=== PATIENT | male | born 1950 ===

== ENCOUNTER 2017-01-24 15:53 | Inpatient (IN) | payer MEDICARE, OTHER ==
--- NOTE | 2017-01-24 16:10 | ED PDOC ---
Arrival/HPI - General Time Seen by Provider: 01/24/17 15:54 - History of Present Illness Narrative History of Present Illness (Text): 01/24/17 16:09 Patient with a past medical history of hypertension, diabetes, CVA, dyslipidemia presents with 3 days duration of productive cough. Denies cp/sob/ alvarado. No f/c, no other complaints. Past Medical History - Provider Review Nursing Documentation Reviewed: Yes - Infectious Disease Hx of Infectious Diseases: None - Tetanus Immunization Tetanus Immunization: Unknown - Cardiac Hx Hypertension: Yes - Pulmonary Hx Chronic Obstructive Pulmonary Disease (COPD): Yes - Neurological HX Cerebrovascular Accident: Yes - Endocrine/Metabolic Hx Diabetes Mellitus Type 2: Yes - Hematological/Oncological Hx Blood Disorders: No - Musculoskeletal/Rheumatological Hx Falls: Yes - Gastrointestinal Hx Gastroesophageal Reflux: Yes - Genitourinary/Gynecological Hx Genitourinary Disorders: Yes (retention voids small amts) - Psychiatric Hx Depression: Yes Hx Emotional Abuse: No Hx Physical Abuse: No Hx Substance Use: No - Surgical History Hx Cardiac Catheterization: Yes Hx Orthopedic Surgery: Yes (left hip) - Anesthesia Hx Anesthesia: Yes Hx Anesthesia Reactions: No Hx Malignant Hyperthermia: No - Suicidal Assessment Feels Threatened In Home Enviroment: No Family/Social History Family/Social History: Unknown Family HX Smoking Status: Current Some Days Smoker Hx Alcohol Use: No Hx Substance Use: No Hx Substance Use Treatment: Yes Allergies/Home Meds Allergies/Adverse Reactions: Allergies No Known Allergies Allergy (Verified 08/18/16 15:42) Home Medications: Home Meds Medication Instructions Recorded Confirmed Albuterol HFA [Ventolin HFA 90 2 puff IH QID 11/19/15 08/25/16 mcg/actuation (8 g)] Clonazepam 0.5 mg PO HS 11/19/15 08/25/16 Ibuprofen [Motrin Tab] 600 mg PO Q8H PRN 11/19/15 08/25/16 Insulin Glargine, Recombina 15 unit SC HS 11/19/15 08/25/16 [Lantus] Quetiapine Fumarate [Seroquel Xr] 300 mg PO HS 11/19/15 08/25/16 Ranitidine HCl 150 mg PO DAILY 11/19/15 08/25/16 SITagliptin [Januvia] 100 mg PO DAILY 11/19/15 08/25/16 Atorvastatin [Lipitor] 20 mg PO DIN 02/03/16 08/25/16 Aspirin [Adult Low Dose Aspirin EC] 81 mg PO DAILY 02/05/16 08/25/16 Physical Exam - Physical Exam Narrative Physical Exam (Text): 01/24/17 16:19 - Review of Systems Constitutional: Normal. absent: Fatigue, Weight Change, Fevers Eyes: Normal ENT: denies sore throat, denies tristhmus Respiratory: cough, sputum absent: SOB Cardiovascular: absent: Chest Pain, Palpitations, Syncope Gastrointestinal: Normal. absent: Abdominal Pain, Diarrhea, Nausea, Vomiting Genitourinary: Normal. absent: Dysuria, Frequency, Hematuria, vaginal bleeding Musculoskeletal: Normal. absent: Arthralgias, Back Pain, Neck Pain Skin: no rashes, no erythema Neurological: absent: Focal Weakness Endocrine: Normal Hemo/Lymphatic: Normal Psychiatric: No suicidal or homicidal ideations Physical exam Patient appears age appropriate in no distress, speaking full sentences without difficulty - Systems Exam Head: Present: Atraumatic, Normocephalic Pupils: Present: PERRL Extroacular Muscles: Present: EOMI Conjunctiva: Present: Normal Mouth: Present: Moist Mucous Membranes Neck: Present: Normal Range of Motion. No: MIDLINE TENDERNESS, Paraspinal Tenderness Respiratory/Chest: Present: exp wheezing, R>L, Good Air Exchange. No: Respiratory Distress, Accessory Muscle Use, Tachypneic Cardiovascular: Present: Regular Rate and Rhythm, Normal S1, S2, Peripheal Pulses Present. No: Murmurs Abdomen: Present: Normal Bowel Sounds. No: Tenderness, Distention, Peritoneal Signs, Rebound, Guarding Back: Present: Normal Inspection. No: Midline Tenderness, Paraspinal Tenderness Upper Extremity: Present: Normal Inspection. No: Cyanosis, Edema Lower Extremity: Present: Normal Inspection. No: Edema Neurological: Present: GCS=15, Speech Normal, cranial nerves II through XII fully intact with no cerebellar abnormality, neurosensory fully intact. No focal neurological deficits. Skin: Present: Warm, Dry, Normal Color. No: Rashes Lymphatic: Present: OX3, NI, NC Psychiatric: Present: Alert, Oriented x 3, Normal Insight, Normal Concentration Vital Signs Temp Pulse Resp BP Pulse Ox 01/24/17 16:31 98.5 F 94 H 18 118/65 93 L Medical Decision Making ED Course and Treatment: 01/24/17 16:20 66yo male with 3 days of productive cough. Pt has exp wheezing on exam, in no resp distress Patient's previous records reviewed, he was admitted on with diagnosis of pneumonia differential includes but not limited to: PNA, bronchitis, COPD abx, nebs, steroids, cxr, labs ordered 01/24/17 17:40 on reeval, pt states he feels better, but remains symptomatic dw Dr. Pizano, accepted obs to his service pt aware of and agrees with plan Veneer Clipper : Mauro Chase MD Approver2 : Report Date : 01/24/2017 16:53:01 My Comment : HISTORY: Cough. Portable study 16:20. COMPARISON: 08/25/2016. FINDINGS: LUNGS: No active pulmonary disease. PLEURA: No significant pleural effusion identified, no pneumothorax apparent. CARDIOVASCULAR: No radiographic findings to suggest acute or significant cardiovascular disease. OSSEOUS STRUCTURES: No significant abnormalities. VISUALIZED UPPER ABDOMEN: Normal. OTHER FINDINGS: None. IMPRESSION: No active disease. No significant interval change compared to the prior examination(s). - Lab Interpretations Lab Results: 01/24/17 16:24 01/24/17 16:24 Lab Results 01/24/17 16:24: Sodium 139, Potassium 4.2, Chloride 103, Carbon Dioxide 23, Anion Gap 17, BUN 14, Creatinine 1.0, Est GFR ( Amer) > 60, Est GFR (Non- Af Amer) > 60, Random Glucose 269 H, Calcium 9.4, Total Bilirubin 0.5, AST 31, ALT 50, Alkaline Phosphatase 106, NT-Pro-B Natriuret Pep 57.2, Total Protein 7.1 , Albumin 4.2, Globulin 2.9, Albumin/Globulin Ratio 1.4 01/24/17 16:24: PT 11.8, INR 1.09 H, APTT 29.0 01/24/17 16:24: WBC 8.5, RBC 4.81, Hgb 15.1, Hct 43.4, MCV 90.2, MCH 31.4, MCHC 34.8, RDW 13.1, Plt Count 297, MPV 9.5, Gran % 51.9, Lymph % (Auto) 28.1, [place] % (Auto) 11.8 H, Eos % (Auto) 7.6 H, Baso % (Auto) 0.6, Gran # 4.43, Lymph # 2.4 , [place] # 1.0 H, Eos # 0.7, Baso # 0.05 - RAD Interpretation Radiology Orders: 01/24/17 16:16 CHEST PORTABLE [RAD] Stat - Medication Orders Current Medication Orders: Azithromycin (Zithromax 500mg In Ns) 500 mg in 250 mls @ 167 mls/hr IVPB STAT STA PRN Reason: Protocol Stop: 01/24/17 17:45 Last Admin: 01/24/17 17:23 Dose: 167 mls/hr Discontinued Medications Albuterol/Ipratropium (Duoneb 3 Mg/0.5 Mg (3 Ml) Ud) 3 ml IH Q15M MARIPOSA Stop: 01/24/17 17:01 Last Admin: 01/24/17 17:24 Dose: 3 ml Albuterol/Ipratropium (Duoneb 3 Mg/0.5 Mg (3 Ml) Ud) 3 ml IH STAT STA Stop: 01/24/17 16:17 Last Admin: 01/24/17 16:30 Dose: Ceftriaxone Sodium (Rocephin 1 Gram Ivpb) 1 gm in 100 mls @ 200 mls/hr IV STAT STA PRN Reason: Protocol Stop: 01/24/17 16:45 Last Admin: 01/24/17 16:31 Dose: 200 mls/hr Methylprednisolone (Solu-Medrol) 125 mg IVP STAT STA Stop: 01/24/17 16:17 Last Admin: 01/24/17 16:31 Dose: 125 mg Disposition/Present on Arrival - Present on Arrival Any Indicators Present on Arrival: No History of DVT/PE: No History of Uncontrolled Diabetes: No Urinary Catheter: No History Surgical Site Infection Following: None - Disposition Have Diagnosis and Disposition been Completed?: Yes Diagnosis: COPD (chronic obstructive pulmonary disease) Disposition: HOSPITALIZED Disposition Time: 17:41 Patient Plan: Observation Condition: STABLE Referrals: Aleks Pizano MD [Primary Care Provider] - Follow up with primary
[2017-01-24 16:13] VITALS: BMI 26.0
[2017-01-24] MEDS ORDERED: cefTRIAXone 1 gm 1 GM/100 ML BAG IV STA (16:16)
[2017-01-24] MEDS ORDERED: Azithromycin 500MG/NS 250ml 500 MG/250 ML BAG IVPB STA (16:16)
[2017-01-24] MEDS ORDERED: Albuterol-Ipratrop 3 mg / 0.5 (3 ml) UD IH STA (16:16)
[2017-01-24] MEDS: Albuterol-Ipratrop 3 mg / 0.5 (3 ml) UD IH SCH ×3 (16:30→17:24)
[2017-01-24 16:35] LABS: BASO # 0.05 K/mm3 (0.0-2.0); BASO % 0.6 % (0.0-3.0); EOS # 0.7 (0.0-0.7); EOS % 7.6 % (1.5-5.0); GRAN # 4.43 (1.4-6.5); GRAN % 51.9 % (50.0-68.0); HEMOGLOBIN 15.1 g/dL (14.0-18.0); LYMPH # 2.4 (1.2-3.4); LYMPH % 28.1 % (22.0-35.0); MEAN CELL VOLUME 90.2 fl (80.0-105.0); MEAN CORPUSCULAR HEMOGLOBIN 31.4 pg (25.0-35.0); MEAN CORPUSCULAR HGB CONC 34.8 g/dl (31.0-37.0); MEAN PLATELET VOLUME 9.5 fl (7.0-11.0); MONO % 11.8 % (1.0-6.0); PLATELET COUNT 297 10^3/uL (120.0-450.0); RBC 4.81 10^6/uL (3.5-6.1); RED CELL DISTRIBUTION WIDTH 13.1 % (11.5-14.5); WHITE BLOOD COUNT 8.5 10^3/ul (4.5-11.0)
[2017-01-24 16:47] LABS: INR 1.09 (0.93-1.08); PROTHROMBIN TIME 11.8 Seconds (9.9-11.8)
[2017-01-24 16:50] LABS: ALB/GLOB RATIO 1.4 (1.1-1.8); ALBUMIN 4.2 g/dL (3.0-4.8); ALT/SGPT 50 U/L (7-56); AST/SGOT 31 U/L (15-59); BLOOD UREA NITROGEN 14 mg/dL (7-21); CALCIUM 9.4 mg/dL (8.4-10.5); GFR AFRICAN-AMERICAN > 60; GFR NON-AFRICAN AMERICAN > 60
--- NOTE | 2017-01-24 16:55 | RAD ---
HISTORY: Cough. Portable study 16:20. COMPARISON: 08/25/2016. FINDINGS: LUNGS: No active pulmonary disease. PLEURA: No significant pleural effusion identified, no pneumothorax apparent. CARDIOVASCULAR: No radiographic findings to suggest acute or significant cardiovascular disease. OSSEOUS STRUCTURES: No significant abnormalities. VISUALIZED UPPER ABDOMEN: Normal. OTHER FINDINGS: None. IMPRESSION: No active disease. No significant interval change compared to the prior examination(s).
[2017-01-24 16:58] LABS: B-TYPE NATRIURETIC PEPTIDE 57.2 pg/mL (0-450)
[2017-01-24] MEDS ORDERED: Albuterol-Ipratrop 3 mg / 0.5 (3 ml) UD IH PRN (17:41)
[2017-01-24] MEDS ORDERED: QUEtiapine 300 mg XR Tab PO ONE (23:15)
[2017-01-24] MEDS ORDERED: guaiFENesin DM 200 mg-20 mg/10 ml UD PO STA (23:59)
[2017-01-25] MEDS: MethylPREDNISolone 40 mg Vial IVP SCH ×3 (06:48→13:22)
[2017-01-25] MEDS: Promethazine/Cod 6.25mg-10mg/5ml Syr UD PO PRN ×2 (13:22→23:39)
[2017-01-25] MEDS: Insulin Reg-LOW-Coverage SC SCH ×2 (17:12→21:52)
[2017-01-25] MEDS: Oxycodone/Acetaminophen 5/325 mg Tab PO PRN (20:31)
[2017-01-25] MEDS: QUEtiapine 300 mg XR Tab PO SCH (22:36)
[2017-01-25] MEDS: MethylPREDNISolone 40 mg Vial IV SCH (22:36)
--- NOTE | 2017-01-26 01:09 | CON ---
PULMONARY CONSULTATION DATE: 01/25/2017 REFERRING PHYSICIAN: Dr. Pizano. REASON FOR CONSULTATION: Cough, shortness of breath, exacerbation of chronic obstructive lung disease. HISTORY OF PRESENT ILLNESS: This is a 66-year-old gentleman with known history of stroke, chronic obstructive pulmonary disease, active smoker, history of diabetes, anxiety disorder, admitted for cough and shortness of breath, started on IV inhaled bronchodilator, still has a cough and shortness of breath. PAST MEDICAL HISTORY: Chronic obstructive lung disease, active smoker, hypertension, history of stroke, diabetes, degenerative joint disease, anxiety disorder. ALLERGIES: NONE KNOWN. SOCIAL HISTORY: Active smoker or any alcohol use. FAMILY HISTORY: Significant for cardiopulmonary disease reported. MEDICATIONS: He is on doxycycline 100 mg twice a day started last night, DuoNeb q.4h. p.r.n., Ecotrin 81 mg daily, Januvia 100 mg daily, Lipitor 20 mg daily, Motrin 600 mg q.8h. p.r.n., Pepcid 20 mg daily, Percocet 5/325 mg one tab q.8h. p.r.n., Phenergan with codeine 5 mL q.4h., Seroquel 300 mg bedtime, And Solu-Medrol 20 mg q.8h. REVIEW OF SYSTEMS: No headache, no rhinitis, no cough, or shortness of breath. No chest pain, no nausea, no vomiting, no diarrhea. No leg pain or leg swelling. PHYSICAL EXAMINATION: GENERAL: Lying in the bed with cough and shortness of breath. VITAL SIGNS: Temperature is 98, heart rate is 102, respiratory rate is 18, blood pressure 126/70, pulse ox is 97% on 3 liters nasal cannula. HEENT: Moist mucous membrane. Crowded airway. NECK: Supple. No JVD. LUNGS: Bilateral wheezing. HEART: S1 and S2. ABDOMEN: Soft, nontender. No organomegaly. EXTREMITIES: There is no edema. NEUROLOGIC: Awake and alert. Follow simple command. LABORATORY DATA: Shows hemoglobin 15.1, hematocrit 43.4, WBC 8.5, platelet is 297. INR 1.09. VBG done shows pH 7.40, pCO2 36, O2 84. Sodium 139, potassium 4.2, chloride 103, bicarbonate 23, BUN is 14, creatinine 1.0, glucose 269, calcium 9.4, AST 31, ALT 50, alkaline phosphatase is 106. ProBNP 57, albumin is 4.2. Chest x-ray done in the ER shows no active disease. IMPRESSION AND PLAN: Chronic obstructive lung disease, active smoker, bipolar disorder, diabetes, sleep apnea syndrome, history of remote stroke. Case discussed with the nurse practitioner on the floor. Continue Solu-Medrol. Continue antibiotics, inhaled bronchodilator, gastric prophylaxis, DVT prophylaxis, cough suppressor. The patient is to stop smoking. We will follow with you. Anushka Trammell MD
[2017-01-26] MEDS: MethylPREDNISolone 40 mg Vial IV SCH ×2 (05:35→14:31)
[2017-01-26] MEDS: Insulin Reg-LOW-Coverage SC SCH ×4 (08:28→21:39)
--- NOTE | 2017-01-26 09:14 | CT ---
PROCEDURE: CT Chest without contrast HISTORY: persistant chronic cough,chronic years COMPARISON: 08/16/2016 TECHNIQUE: Contiguous axial images were obtained through the chest without intravenous contrast enhancement. Sagittal and coronal reconstructions were performed. Radiation dose (DLP): 267.90 mGy-cm. This CT exam was performed using one or more of the following dose reduction techniques: Automated exposure control, adjustment of the mA and/or kV according to patient size, and/or use of iterative reconstruction technique. FINDINGS: LUNGS: Previous areas of consolidation in the right lower lobe, left lower lobe and lingula have resolved. No infiltrate identified. Minimal dependent atelectasis in both lower lobes. No pulmonary mass. Centrilobular pulmonary emphysema is noted. MEDIASTINUM: Unremarkable thoracic aorta. No aneurysm. Normal sized heart. Main pulmonary artery unremarkable. No vascular congestion. No lymphadenopathy. PLEURA: No pleural fluid. No pneumothorax. BONES: No fracture. No destructive lesion. UPPER ABDOMEN: Grossly unremarkable. OTHER FINDINGS: None. IMPRESSION: No pulmonary infiltrate. Centrilobular pulmonary emphysema. Otherwise unremarkable.
[2017-01-26] MEDS: Oxycodone/Acetaminophen 5/325 mg Tab PO PRN (09:45)
--- NOTE | 2017-01-26 10:19 | CP.PCM.HP ---
History of Present Illness - History of Present Illness History of Present Illness: cough, worse than befor quit smoking few month ago , wheezing , dyspnic, no fever no chills use inhalers Present on Admission - Present on Admission Any Indicators Present on Admission: No History of DVT/PE: No History of Uncontrolled Diabetes: No Urinary Catheter: No Decubitus Ulcer Present: No Review of Systems - Review of Systems Systems not reviewed;Unavailable: Language Barrier All systems: reviewed and no additional remarkable complaints except - Constitutional Additional comments: none - EENT Eyes: As Per HPI Ears: As Per HPI - Respiratory Respiratory: Wheezing, Chest Congestion - Gastrointestinal Gastrointestinal: Change in Stool Character Additional comments: h/o hernia - Musculoskeletal Musculoskeletal: Abnormal Gait, Arthralgias, Back Pain, Muscle Weakness - Hematologic/Lymphatic Hematologic: As Per HPI Past Patient History - Infectious Disease Hx of Infectious Diseases: None - Tetanus Immunizations Tetanus Immunization: Unknown - Past Social History Smoking Status: Former Smoker - CARDIAC Hx Hypertension: Yes - PULMONARY Hx Chronic Obstructive Pulmonary Disease (COPD): Yes - NEUROLOGICAL HX Cerebrovascular Accident: Yes - ENDOCRINE/METABOLIC Hx Diabetes Mellitus Type 2: Yes - HEMATOLOGICAL/ONCOLOGICAL Hx Blood Disorders: No - MUSCULOSKELETAL/RHEUMATOLOGICAL Hx Falls: Yes - GASTROINTESTINAL Hx Gastroesophageal Reflux: Yes - GENITOURINARY/GYNECOLOGICAL Hx Genitourinary Disorders: Yes (retention voids small amts) - PSYCHIATRIC Hx Depression: Yes Hx Emotional Abuse: No Hx Physical Abuse: No Hx Substance Use: No - SURGICAL HISTORY Hx Cardiac Catheterization: Yes Hx Orthopedic Surgery: Yes (left hip) - ANESTHESIA Hx Anesthesia: Yes Hx Anesthesia Reactions: No Hx Malignant Hyperthermia: No Meds Allergies/Adverse Reactions: Allergies Allergy/AdvReac Type Severity Reaction Status Date / Time No Known Allergies Allergy Verified 08/18/16 15:42 Physical Exam - Constitutional Appears: Well - Head Exam Head Exam: ATRAUMATIC, NORMAL INSPECTION, NORMOCEPHALIC - Eye Exam Eye Exam: EOMI, Normal appearance, PERRL - ENT Exam ENT Exam: Mucous Membranes Moist, Normal Exam - Respiratory Exam Respiratory Exam: Rhonchi, Wheezes - Cardiovascular Exam Cardiovascular Exam: REGULAR RHYTHM - Extremities Exam Extremities exam: Positive for: normal inspection - Back Exam Back exam: NORMAL INSPECTION - Neurological Exam Neurological exam: Abnormal Gait Results - Vital Signs Recent Vital Signs: Last Vital Signs Temp 96.4 F L 01/25/17 16:00 Pulse 72 01/25/17 16:00 Resp 19 01/25/17 16:00 BP 109/68 01/25/17 16:00 Pulse Ox 96 01/25/17 16:00 - Labs Result Diagrams: 01/24/17 16:24 01/24/17 16:24 Labs: Laboratory Results - last 24 hr 01/25/17 01/26/17 21:45 07:32 POC Glucose (mg/dL) 230 H 273 H Assessment & Plan (1) COPD (chronic obstructive pulmonary disease) Status: Chronic (2) Chest pain Status: Acute (3) Leukocytosis Status: Acute (4) Anxiety Status: Chronic (5) Diabetes Status: Chronic - Assessment and Plan (Free Text) Plan: admitt. pulmonary consult, iv steroids, neublizer, insulin cover . resume meds , iv doxycycline, neublizer, cough meds with codine , .will f/up
[2017-01-26] MEDS: QUEtiapine 300 mg XR Tab PO SCH (21:22)
[2017-01-26] MEDS: MethylPREDNISolone 40 mg Vial IVP SCH (21:23)
[2017-01-26] MEDS: Promethazine/Cod 6.25mg-10mg/5ml Syr UD PO PRN (21:31)
--- NOTE | 2017-01-27 03:13 | PN ---
PULMONARY PROGRESS NOTE DATE: 01/26/2017 REFERRING PHYSICIAN: Dr. Pizano. SUBJECTIVE: The patient is ambulating, feels better. Decreased cough. Decreased short of breath. No nausea, no vomiting, or no diarrhea. No leg pain or leg swelling. OBJECTIVE: GENERAL: In no acute distress. VITAL SIGNS: Temp is 98, heart rate is 70, respiratory rate is 16, blood pressure 111/62 and pulse ox 97% on 2 L nasal cannula. HEENT: Moist mucous membranes. Carotid airway. NECK: Supple. No JVD. LUNGS: Few scattered rhonchi. HEART: S1 and S2. ABDOMEN: Soft and nontender. No organomegaly. EXTREMITIES: There is no edema. NEUROLOGIC: Awake, alert and follows simple commands. MEDICATIONS: He is on doxycycline 100 mg twice a day, DuoNeb q. 6 hours, Ecotrin 81 mg daily, insulin coverage, Januvia 100 mg daily, Clarinex 0.5 mg at bedtime, Lipitor 20 mg daily, Motrin 600 mg q. 8 hours p.r.n., Pepcid 20 mg daily, Percocet 5/325 mg one tab q. 8 hours p.r.n., Phenergan with codeine 5 mL q. 4 hours p.r.n., Seroquel XL 300 mg at bedtime and Solu-Medrol 30 mg q. 8 hours. LABORATORY DATA: Reviewed. Blood sugar this morning is 233. Microbiology; blood culture has been negative. Has a CAT scan of the chest done today which shows no pulmonary infiltrate, central lobular emphysema. Otherwise, unremarkable. IMPRESSION AND PLAN: The patient has chronic obstructive lung disease, active smoker, bipolar disorder, diabetes, sleep apnea syndrome and history of stroke in the remote past. Spoke to nursing staff. Also spoke to nurse practitioner. Tapered on steroids. Continue antibiotics. Urging to stop smoking. Outpatient attended sleep study. Gastric prophylaxis and deep venous thrombosis prophylaxis. Thank you and we will follow with you. Anushka Trammell MD
[2017-01-27] MEDS: MethylPREDNISolone 40 mg Vial IVP SCH (05:32)
[2017-01-27 06:59] LABS: HEMOGLOBIN 15.3 g/dL (14.0-18.0); MEAN CELL VOLUME 90.4 fl (80.0-105.0); MEAN CORPUSCULAR HEMOGLOBIN 31.2 pg (25.0-35.0); MEAN CORPUSCULAR HGB CONC 34.5 g/dl (31.0-37.0); MEAN PLATELET VOLUME 10.1 fl (7.0-11.0); RBC 4.9 10^6/uL (3.5-6.1)
[2017-01-27 07:06] LABS: ALB/GLOB RATIO 1.5 (1.1-1.8); ALBUMIN 4.1 g/dL (3.0-4.8); ALT/SGPT 39 U/L (7-56); AST/SGOT 29 U/L (15-59); BLOOD UREA NITROGEN 30 mg/dL (7-21); CALCIUM 9.6 mg/dL (8.4-10.5); GFR AFRICAN-AMERICAN > 60; GFR NON-AFRICAN AMERICAN > 60
[2017-01-27] MEDS: Insulin Reg-LOW-Coverage SC SCH ×2 (07:58→11:52)
[2017-01-27 08:11] VITALS: BP 133/73; PULSE 85; RESP 20; TEMP 97.4; O2SAT 98
[2017-01-27] MEDS: Oxycodone/Acetaminophen 5/325 mg Tab PO PRN (11:04)
[2017-01-27] MEDS ORDERED: Insulin Detemir 100 units/ml Vial (Levemir) SC ONE (11:36)
--- NOTE | 2017-01-28 19:45 | CP.PCM.PN ---
Subjective - Date & Time of Evaluation Date of Evaluation: 01/26/17 Time of Evaluation: 18:00 - Subjective Subjective: wheezing is less cough is better no chest pain no abdominal pain Objective - Vital Signs/Intake and Output Vital Signs (last 24 hours): Temp Pulse Resp BP Pulse Ox 97.4 F L 85 20 133/73 98 01/27/17 08:10 01/27/17 08:10 01/27/17 08:10 01/27/17 08:10 01/27/17 08:10 - Labs Labs: 01/27/17 06:20 01/27/17 06:20 PT 11.8 Seconds (9.9-11.8) 01/24/17 16:24 INR 1.09 (0.93-1.08) H 01/24/17 16:24 APTT 29.0 Seconds (23.7-30.8) 01/24/17 16:24 - Constitutional Appears: Well - Head Exam Head Exam: ATRAUMATIC, NORMAL INSPECTION, NORMOCEPHALIC - Eye Exam Eye Exam: EOMI, Normal appearance, PERRL Pupil Exam: NORMAL ACCOMODATION, PERRL - ENT Exam ENT Exam: Mucous Membranes Moist, Normal Exam - Neck Exam Neck Exam: Full ROM, Normal Inspection. absent: Lymphadenopathy - Respiratory Exam Respiratory Exam: Clear to Ausculation Bilateral, NORMAL BREATHING PATTERN - Cardiovascular Exam Cardiovascular Exam: REGULAR RHYTHM, +S1, +S2. absent: Murmur - GI/Abdominal Exam GI & Abdominal Exam: Soft, Normal Bowel Sounds. absent: Tenderness - Rectal Exam Rectal Exam: NORMAL INSPECTION - Exam Exam: Circumcision, NORMAL INSPECTION External exam: NORMAL EXTERNAL EXAM Speculum exam: NORMAL SPECULUM EXAM Bimanual exam: NORMAL BIMANUAL EXAM - Extremities Exam Extremities Exam: Full ROM, Normal Capillary Refill, Normal Inspection. absent : Joint Swelling, Pedal Edema - Back Exam Back Exam: NORMAL INSPECTION - Neurological Exam Neurological Exam: Alert, Awake, CN II-XII Intact, Normal Gait, Oriented x3 - Psychiatric Exam Psychiatric exam: Normal Affect, Normal Mood - Skin Skin Exam: Dry, Intact, Normal Color, Warm Assessment and Plan (1) COPD (chronic obstructive pulmonary disease) Status: Chronic (2) Chest pain Status: Acute (3) Leukocytosis Status: Acute (4) Anxiety Status: Chronic (5) Diabetes Status: Chronic - Assessment and Plan (Free Text) Plan: conpulmonary consults ,willd/c in amtinue current meds , continue taper steroid . f/up with
--- NOTE | 2017-01-28 19:50 | CP.PCM.DIS ---
Provider - Provider Date of Admission: 01/25/17 16:22 Attending physician: Aleks Pizano MD Primary care physician: Aleks Pizano MD Consults: pulmonary dr trammell Time Spent in preparation of Discharge (in minutes): 15 Diagnosis - Discharge Diagnosis (1) COPD (chronic obstructive pulmonary disease) Status: Chronic (2) Chest pain Status: Acute (3) Leukocytosis Status: Acute (4) Anxiety Status: Chronic (5) Diabetes Status: Chronic Hospital Course - Lab Results Lab Results: Micro Results 01/26/17 05:35 Sputum Gram Stain - Final 01/26/17 05:35 Sputum Sputum Culture - Final NORMAL ORAL MARLIN Most Recent Lab Values WBC 23.0 10^3/ul (4.5-11.0) H D 01/27/17 06:20 RBC 4.90 10^6/uL (3.5-6.1) 01/27/17 06:20 Hgb 15.3 g/dL (14.0-18.0) 01/27/17 06:20 Hct 44.3 % (42.0-52.0) 01/27/17 06:20 MCV 90.4 fl (80.0-105.0) 01/27/17 06:20 MCH 31.2 pg (25.0-35.0) 01/27/17 06:20 MCHC 34.5 g/dl (31.0-37.0) 01/27/17 06:20 RDW 13.0 % (11.5-14.5) 01/27/17 06:20 Plt Count 324 10^3/uL (120.0-450.0) 01/27/17 06:20 MPV 10.1 fl (7.0-11.0) 01/27/17 06:20 Gran % 51.9 % (50.0-68.0) 01/24/17 16:24 Lymph % (Auto) 28.1 % (22.0-35.0) 01/24/17 16:24 [place] % (Auto) 11.8 % (1.0-6.0) H 01/24/17 16:24 Eos % (Auto) 7.6 % (1.5-5.0) H 01/24/17 16:24 Baso % (Auto) 0.6 % (0.0-3.0) 01/24/17 16:24 Gran # 4.43 (1.4-6.5) 01/24/17 16:24 Lymph # 2.4 (1.2-3.4) 01/24/17 16:24 [place] # 1.0 (0.1-0.6) H 01/24/17 16:24 Eos # 0.7 (0.0-0.7) 01/24/17 16:24 Baso # 0.05 K/mm3 (0.0-2.0) 01/24/17 16:24 PT 11.8 Seconds (9.9-11.8) 01/24/17 16:24 INR 1.09 (0.93-1.08) H 01/24/17 16:24 APTT 29.0 Seconds (23.7-30.8) 01/24/17 16:24 Sodium 138 mmol/L (132-148) 01/27/17 06:20 Potassium 4.5 mmol/L (3.6-5.0) 01/27/17 06:20 Chloride 104 mmol/L (95-110) 01/27/17 06:20 Carbon Dioxide 21 mmol/L (21-33) 01/27/17 06:20 Anion Gap 18 (10-20) 01/27/17 06:20 BUN 30 mg/dL (7-21) H 01/27/17 06:20 Creatinine 0.9 mg/dL (0.5-1.4) 01/27/17 06:20 Est GFR ( Amer) > 60 01/27/17 06:20 Est GFR (Non-Af Amer) > 60 01/27/17 06:20 POC Glucose (mg/dL) 428 mg/dL (65-110) H* 01/27/17 11:25 Random Glucose 294 mg/dL (70-110) H 01/27/17 06:20 Calcium 9.6 mg/dL (8.4-10.5) 01/27/17 06:20 Total Bilirubin 0.6 mg/dL (0.2-1.3) 01/27/17 06:20 AST 29 U/L (15-59) 01/27/17 06:20 ALT 39 U/L (7-56) 01/27/17 06:20 Alkaline Phosphatase 105 U/L (38-133) 01/27/17 06:20 NT-Pro-B Natriuret Pep 57.2 pg/mL (0-450) 01/24/17 16:24 Total Protein 6.7 g/dL (5.8-8.3) 01/27/17 06:20 Albumin 4.1 g/dL (3.0-4.8) 01/27/17 06:20 Globulin 2.7 gm/dL 01/27/17 06:20 Albumin/Globulin Ratio 1.5 (1.1-1.8) 01/27/17 06:20 - Hospital Course Hospital Course: stable chest pain with cough got better with cough meds with codine feel better wants to go home, no wheeze Discharge Exam - Head Exam Head Exam: ATRAUMATIC, NORMAL INSPECTION, NORMOCEPHALIC - Eye Exam Eye Exam: EOMI, Normal appearance, PERRL Pupil Exam: NORMAL ACCOMODATION, PERRL - Neurological Exam Neurological exam: Alert, CN II-XII Intact, Normal Gait, Oriented x3, Reflexes Normal - Psychiatric Exam Psychiatric exam: Normal Affect, Normal Mood - Skin Skin Exam: Dry, Intact, Normal Color, Warm Discharge Plan - Discharge Medications Prescriptions: Albuterol HFA [Ventolin HFA 90 mcg/actuation (8 g)] 1 puff IH Q6 #1 inhaler - Follow Up Plan Condition: STABLE Disposition: HOME/ ROUTINE Instructions: How to Stop Smoking (DC), Cigarette Smoking and Your Health (GEN) , Diabetes Mellitus Type 2 in Adults (GEN), COPD (Chronic Obstructive Pulmonary Disease) (DC), Basic Carbohydrate Counting (GEN), Dyspnea (GEN), Acute Cough ( GEN), Safe Use of Cough and Cold Medicines (DC), How Your Lungs Work (DC) Referrals: Aleks Pizano MD [Primary Care Provider] - Anushka Trammell MD [Staff Provider] -
== END 2017-01-27 13:39 | disposition home or self-care (01) | DRG 192 ==
LOC: ED 15:53 → ERH 17:41 → 5RNO 20:03 → OBSVTOIN 01-25 16:22
PROVIDERS: ADMIT Internal Medicine; ATTEND Internal Medicine
DX: J44.1 Chronic obstructive pulmonary disease with (acute) exacerbation (principal); I10 Essential (primary) hypertension; E11.9 Type 2 diabetes mellitus without complications; F31.9 Bipolar disorder, unspecified; F41.9 Anxiety disorder, unspecified; F17.200 Nicotine dependence, unspecified, uncomplicated; M19.90 Unspecified osteoarthritis, unspecified site; G47.30 Sleep apnea, unspecified; D72.829 Elevated white blood cell count, unspecified; Z86.73 Personal history of transient ischemic attack (TIA), and cerebral infarction without residual deficits; Z79.82 Long term (current) use of aspirin; Z79.4 Long term (current) use of insulin

== ENCOUNTER 2018-08-06 11:50 | Outpatient (CLI) | payer MEDICARE | END 2018-08-06 11:51 | disposition home or self-care (01) | LOC: RAD 11:50 ==

== ENCOUNTER 2018-08-07 12:41 | Inpatient (IN) | payer MEDICARE, OTHER ==
[2018-08-07] MEDS ORDERED: Albuterol-Ipratrop 3 mg / 0.5 (3 ml) UD IH STA (13:09)
--- NOTE | 2018-08-07 13:36 | ED PDOC ---
Arrival/HPI - General Chief Complaint: Shortness Of Breath Time Seen by Provider: 08/07/18 12:55 Historian: Patient - History of Present Illness Narrative History of Present Illness (Text): 08/07/18 13:31 67 year old male, with past medical history of HTN, DM, CVA, dyslipidemia and COPD, presents to the ED for evaluation of shortness of breath and productive cough since 1 month. Patient reports worsening symptom for past few days, prompting him to present to the ED for evaluation. Patient informs productive cough with yellowish sputum but denies any other associated somatic complaints. Patient denies any fevers, chills, headache, dizziness, chest pain, abdominal pain, nausea, vomiting, diarrhea, back pain, neck pain, or any other complaints. Patient admits to smoking cigarettes. PMD: Dr. Pizano Time/Duration: > month Symptom Onset: Gradual Symptom Course: Unchanged Activities at Onset: Light Context: Home Past Medical History - Provider Review Nursing Documentation Reviewed: Yes - Infectious Disease Hx of Infectious Diseases: None - Tetanus Immunization Tetanus Immunization: Unknown - Cardiac Hx Cardiac Disorders: Yes Hx Hypertension: Yes - Pulmonary Hx Chronic Obstructive Pulmonary Disease (COPD): Yes - Neurological HX Cerebrovascular Accident: Yes - Endocrine/Metabolic Hx Diabetes Mellitus Type 2: Yes - Hematological/Oncological Hx Blood Disorders: No - Musculoskeletal/Rheumatological Hx Falls: Yes - Gastrointestinal Hx Gastroesophageal Reflux: Yes - Genitourinary/Gynecological Hx Genitourinary Disorders: Yes (retention voids small amts) - Psychiatric Hx Depression: Yes Hx Emotional Abuse: No Hx Physical Abuse: No Hx Substance Use: No - Surgical History Hx Cardiac Catheterization: Yes Hx Orthopedic Surgery: Yes (left hip) - Anesthesia Hx Anesthesia: Yes Hx Anesthesia Reactions: No Hx Malignant Hyperthermia: No - Suicidal Assessment Feels Threatened In Home Enviroment: No Family/Social History - Physician Review Nursing Documentation Reviewed: Yes Family/Social History: Unknown Family HX Smoking Status: Former Smoker Hx Alcohol Use: No Hx Substance Use: No Hx Substance Use Treatment: Yes Allergies/Home Meds Allergies/Adverse Reactions: Allergies No Known Allergies Allergy (Verified 08/18/16 15:42) Home Medications: Home Meds Medication Instructions Recorded Confirmed RX: Ibuprofen [Motrin Tab] 600 mg PO Q8H PRN 11/19/15 01/24/17 RX: Insulin Glargine, Recombina 15 unit SC HS 11/19/15 01/24/17 [Lantus] RX: Ranitidine HCl 150 mg PO DAILY 11/19/15 01/24/17 RX: SITagliptin [Januvia] 100 mg PO DAILY 11/19/15 01/24/17 RX: Atorvastatin [Lipitor] 20 mg PO DIN 02/03/16 01/24/17 RX: Aspirin [Adult Low Dose 81 mg PO DAILY 02/05/16 01/24/17 Aspirin EC] Review of Systems - Physician Review All systems were reviewed & negative as marked: Yes - Review of Systems Constitutional: absent: Fevers Respiratory: SOB, Cough, Sputum Cardiovascular: absent: Chest Pain Gastrointestinal: absent: Abdominal Pain, Diarrhea, Nausea, Vomiting Genitourinary Male: absent: Dysuria, Urinary Output Changes Musculoskeletal: absent: Back Pain, Neck Pain Skin: absent: Rash Neurological: absent: Headache, Dizziness Psychiatric: absent: Anxiety Physical Exam Vital Signs Reviewed: Yes Vital Signs Temp Pulse Resp BP Pulse Ox 08/07/18 12:55 98.8 F 98 H 20 175/55 H 96 Temperature: Afebrile Blood Pressure: Hypertensive Pulse: Regular Respiratory Rate: Normal Appearance: Positive for: Well-Appearing, Non-Toxic, Comfortable Pain Distress: None Mental Status: Positive for: Alert and Oriented X 3 - Systems Exam Head: Present: Atraumatic, Normocephalic Pupils: Present: PERRL Extroacular Muscles: Present: EOMI Conjunctiva: Present: Icteric Mouth: Present: Moist Mucous Membranes Neck: Present: Normal Range of Motion Respiratory/Chest: Present: Good Air Exchange, Wheezes (diffuse wheezing noted to posterior lung field, coarse breath sounds). No: Respiratory Distress, Accessory Muscle Use Cardiovascular: Present: Normal S1, S2, Tachycardic (mild). No: Murmurs Abdomen: No: Tenderness, Distention, Peritoneal Signs Back: Present: Normal Inspection Upper Extremity: Present: Other (Clubbing of fingers). No: Cyanosis, Edema Lower Extremity: Present: Normal Inspection. No: Edema Neurological: Present: GCS=15, CN II-XII Intact, Speech Normal Skin: Present: Warm, Dry, Normal Color. No: Rashes Psychiatric: Present: Alert, Oriented x 3, Normal Insight, Normal Concentration Medical Decision Making ED Course and Treatment: 08/07/18 13:09 Impression: 67 year old male presents to the ED for evaluation of shortness of breath and cough. Differential Diagnosis included but are not limited to: -- COPD exacerbation Plan: -- Labs -- EKG -- Chest X-ray -- Duoneb -- Solumedrol -- Rapid Flu A/B -- Reassess and disposition Prior Visits: Notes and results from previous visits were reviewed. Progress Notes: 08/07/18 13:00 Dr. Pizano(PCP) evaluated patient at bedside and accepts patient's admission under his service. Requests Dr. Trammell(pulmonology) on consult. - Lab Interpretations Lab Results: 08/07/18 14:00 08/07/18 14:00 Lab Results 08/07/18 14:00: Influenza Typ A,B (EIA) Negative for flu a/b 08/07/18 14:00: Sodium 137, Potassium 4.1, Chloride 102, Carbon Dioxide 27, Anion Gap 12, BUN 15, Creatinine 0.8, Est GFR ( Amer) > 60, Est GFR (Non- Af Amer) > 60, Random Glucose 170 H, Calcium 9.6, Total Bilirubin 0.8, AST 31, ALT 39, Alkaline Phosphatase 106, Total Protein 7.2, Albumin 4.4, Globulin 2.8, Albumin/Globulin Ratio 1.5 08/07/18 14:00: WBC 16.1 H, RBC 4.94, Hgb 15.2, Hct 45.2, MCV 91.5, MCH 30.8, MCHC 33.6, RDW 13.3, Plt Count 270, MPV 9.4, Neut % (Auto) 76.5 H, Lymph % (Auto) 11.0 L, [place] % (Auto) 9.7 H, Eos % (Auto) 2.4, Baso % (Auto) 0.4, Lymph # (Auto) 1.8, [place] # (Auto) 1.6 H, Eos # (Auto) 0.4, Baso # (Auto) 0.07, Absolute Neuts (auto) 12.28 H I have reviewed the lab results: Yes - RAD Interpretation Narrative RAD Interpretations (Text): 08/07/18 14:46 Chest X-ray reviewed by radiologist, shows: FINDINGS: LUNGS: No active pulmonary disease. PLEURA: No significant pleural effusion identified, no pneumothorax apparent. CARDIOVASCULAR: No aortic atherosclerotic calcification present. Normal cardiac size. No pulmonary vascular congestion. OSSEOUS STRUCTURES: No significant abnormalities. VISUALIZED UPPER ABDOMEN: Normal. OTHER FINDINGS: None. IMPRESSION: No active disease. Radiology Orders: 08/07/18 13:09 CHEST PORTABLE [RAD] Stat Storekeeper Helper: Radiologist - EKG Interpretation EKG Interpretation (Text): 08/07/18 13:03 EKG reviewed, shows sinus tachycardia @106 bpm, right axis, no ST elevation. Interpreted by ED Physician: Yes Type: 12 lead EKG - Medication Orders Current Medication Orders: Discontinued Medications Albuterol/Ipratropium (Duoneb 3 Mg/0.5 Mg (3 Ml) Ud) 3 ml IH STAT STA Stop: 08/07/18 13:10 Methylprednisolone (Solu-Medrol) 125 mg IVP STAT STA Stop: 08/07/18 13:10 Discontinued Medications Acetylcysteine (Mucomyst 20% Inhal Yari (30ml)) 3 ml IH BIDRESP [facility]IPOSA Last Admin: 08/09/18 08:08 Dose: 3 ml Acetylcysteine (Acetylcysteine 20%) 3 ml IH BIDRESP [facility] Last Admin: 08/11/18 08:21 Dose: 3 ml Albuterol Sulfate (Albuterol 0.083% Inhal Yari (2.5 Mg/3 Ml) Ud) 2.5 mg INH STAT STA Stop: 08/07/18 13:40 Last Admin: 08/07/18 13:50 Dose: 2.5 mg Albuterol/Ipratropium (Duoneb 3 Mg/0.5 Mg (3 Ml) Ud) 3 ml IH STAT STA Stop: 08/07/18 13:10 Last Admin: 08/07/18 13:50 Dose: 3 ml Albuterol/Ipratropium (Duoneb 3 Mg/0.5 Mg (3 Ml) Ud) 3 ml IH [id number] [facility]OSA Last Admin: 08/11/18 08:22 Dose: 3 ml Albuterol/Ipratropium (Duoneb 3 Mg/0.5 Mg (3 Ml) Ud) 3 ml IH Q2H PRN PRN Reason: Shortness of Breath Arformoterol Tartrate (Brovana) 15 mcg IH [id number] [facility]A Last Admin: 08/11/18 08:21 Dose: 15 mcg Atorvastatin Calcium (Lipitor) 20 mg PO STAT STA Stop: 08/07/18 20:30 Last Admin: 08/07/18 20:39 Dose: 20 mg Azithromycin (Zithromax) 500 mg PO STAT STA; Protocol Stop: 08/07/18 14:16 Last Admin: 08/07/18 14:58 Dose: 500 mg Benzonatate (Tessalon Perles) 100 mg PO TID [facility] Last Admin: 08/11/18 10:44 Dose: 100 mg Budesonide (Pulmicort Respules) 0.5 mg IH BIDRESP [facility] Last Admin: 08/11/18 08:22 Dose: 0.5 mg Clonazepam (Klonopin) 0.5 mg PO ONCE ONE; Protocol Stop: 08/07/18 20:02 Last Admin: 08/07/18 20:39 Dose: 0.5 mg Clonazepam (Klonopin) 0.5 mg PO BID PRN; Protocol PRN Reason: Anxiety Last Admin: 08/10/18 23:40 Dose: 0.5 mg Behavioural Document 08/10/18 23:40 RM (Rec: 08/10/18 23:40 [place] [facility] [id number] Maintenance Maintenance Dose Yes Re-Assess: Reassess Psych Meds Document 08/11/18 00:40 RM (Rec: 08/11/18 02:54 RM [id number]) Reassess Psych Med Effective Enoxaparin Sodium (Lovenox) 40 mg SC DAILY [facility]; Protocol Last Admin: 08/11/18 10:42 Dose: 40 mg Subcutaneous Administrations Document 08/11/18 10:42 SINDHU (Rec: 08/11/18 10:42 SINDHU [facility] [id number] Injection Site MAR Injection Site Left Abdomen Charges for Administration # of Subcutaneous Administrations 1 Fluticasone Propionate (Flonase) 1 actuation NS HS [facility] Last Admin: 08/10/18 23:17 Dose: Not Given Non-Admin Reason: Patient Refused Ceftriaxone Sodium (Rocephin 1 Gram Ivpb) 1 gm in 100 mls @ 100 mls/hr IVPB STAT STA; Protocol Stop: 08/07/18 15:14 Last Admin: 08/07/18 14:58 Dose: 100 mls/hr eMAR Start Stop Document 08/07/18 14:58 EQ (Rec: 08/07/18 14:58 EQ [facility] [id number] Intravenous Solution Start Date 08/07/18 Start Time 14:58 Ceftriaxone Sodium (Rocephin 1 Gram Ivpb) 1 gm in 100 mls @ 100 mls/hr IVPB DAILY [facility]; Protocol Last Admin: 08/11/18 10:44 Dose: 100 mls/hr eMAR Start Stop Document 08/11/18 10:44 SINDHU (Rec: 08/11/18 10:44 SINDHU [facility] [id number] Intravenous Solution Start Date 08/11/18 Start Time 10:44 Doxycycline Hyclate 100 mg/ (Sodium Chloride) 100 mls @ 100 mls/hr IVPB Q12 [facility]; Protocol Last Admin: 08/11/18 10:43 Dose: 100 mls/hr eMAR Start Stop Document 08/11/18 10:43 SINDHU (Rec: 08/11/18 10:43 SINDHU [facility] [id number] Intravenous Solution Start Date 08/11/18 Start Time 10:43 Insulin Detemir (Levemir) 20 unit SC HS [facility] Last Admin: 08/10/18 22:32 Dose: 20 units MAR Blood Glucose Document 08/10/18 22:32 RM (Rec: 08/10/18 22:32 RM [facility] [id number] Blood Glucose Finger Stick Blood Glucose (70-120) 252 Subcutaneous Administrations Document 08/10/18 22:32 RM (Rec: 08/10/18 22:32 RM [facility] [id number] Charges for Administration # of Subcutaneous Administrations 1 Insulin Human Regular (Humulin R Low) 0 units SC ACHS [facility]; Protocol Last Admin: 08/09/18 12:00 Dose: 7 units MAR Blood Glucose Document 08/09/18 12:00 SOUSV (Rec: 08/09/18 12:01 SOUSV [facility] [place] Blood Glucose Finger Stick Blood Glucose (70-120) 500 Subcutaneous Administrations Document 08/09/18 12:00 SOUSV (Rec: 08/09/18 12:01 S[facility]SV [facility] Injection Site MAR Injection Site Right Arm Charges for Administration # of Subcutaneous Administrations 1 Insulin Human Regular (Humulin R High) 0 units SC ACHS [facility]; Protocol Last Admin: 08/11/18 12:15 Dose: 12 units MAR Blood Glucose Document 08/11/18 12:15 SINDHU (Rec: 08/11/18 12:16 [facility] [id number] Blood Glucose Finger Stick Blood Glucose (70-120) 12 Subcutaneous Administrations Document 08/11/18 12:15 (Rec: 08/11/18 12:16 [facility] [id number] Injection Site MAR Injection Site Left Deltoid Charges for Administration # of Subcutaneous Administrations 1 Insulin Human Regular (Humulin R) 10 units SC ONCE ONE Stop: 08/09/18 13:23 Last Admin: 08/09/18 13:38 Dose: 10 units MAR Blood Glucose Document 08/09/18 13:38 SOUSV (Rec: 08/09/18 13:38 S[facility]SV [facility] [place] Blood Glucose Finger Stick Blood Glucose (70-120) 443 Subcutaneous Administrations Document 08/09/18 13:38 SOUSV (Rec: 08/09/18 13:38 S[facility]SV [facility] [place] Injection Site MAR Injection Site Right Arm Charges for Administration # of Subcutaneous Administrations 1 Insulin Human Regular (Humulin R) 10 units SC STAT STA Stop: 08/11/18 02:09 Last Admin: 08/11/18 02:17 Dose: 10 units Comments: Subcutaneous Administrations Document 08/11/18 02:17 RM (Rec: 08/11/18 02:17 RM [facility] [id number] Charges for Administration # of Subcutaneous Administrations 1 Methylprednisolone (Solu-Medrol) 125 mg IVP STAT STA Stop: 08/07/18 13:10 Last Admin: 08/07/18 13:49 Dose: 125 mg IVP Administration Document 08/07/18 13:49 EQ (Rec: 08/07/18 13:49 EQ [facility] [place] Charges for Administration # of IVP Administrations 1 Methylprednisolone (Solu-Medrol) 40 mg IVP Q8H [facility] Last Admin: 08/08/18 00:01 Dose: 40 mg IVP Administration Document 08/08/18 00:01 OLIVD (Rec: 08/08/18 00:01 OLIVD [facility] Charges for Administration # of IVP Administrations 1 Methylprednisolone (Solu-Medrol) 40 mg IVP Q8 [facility] Last Admin: 08/08/18 11:03 Dose: 40 mg IVP Administration Document 08/08/18 11:03 MV (Rec: 08/08/18 11:03 MV [email or web address]) Charges for Administration # of IVP Administrations 1 Methylprednisolone (Solu-Medrol) 40 mg IVP Q6 [facility] Last Admin: 08/09/18 12:00 Dose: 40 mg IVP Administration Document 08/09/18 12:00 SOUSV (Rec: 08/09/18 12:00 SOUSV BMCKOSTEND ORFLP) Charges for Administration # of IVP Administrations 1 Methylprednisolone (Solu-Medrol) 40 mg IVP Q8 [facility] Last Admin: 08/10/18 05:34 Dose: 40 mg IVP Administration Document 08/10/18 05:34 RS (Rec: 08/10/18 05:34 RS [id number]) Charges for Administration # of IVP Administrations 1 Methylprednisolone (Solu-Medrol) 40 mg IVP Q12 [facility] Last Admin: 08/11/18 10:42 Dose: 40 mg IVP Administration Document 08/11/18 10:42 (Rec: 08/11/18 10:42 [facility] [id number] Charges for Administration # of IVP Administrations 1 Methylprednisolone (Solu-Medrol) 20 mg IVP Q12 [facility] Last Admin: 08/11/18 11:10 Dose: Not Given Non-Admin Reason: Dose given Montelukast Sodium (Singulair) 10 mg PO HS [facility] Last Admin: 08/10/18 22:34 Dose: 10 mg Oxycodone/Acetaminophen (Percocet 5/325 Mg Tab) 1 tab PO BID PRN PRN Reason: Pain, severe (8-10) Stop: 08/10/18 20:06 Last Admin: 08/10/18 10:18 Dose: 1 tab [facility] Pain Assessment Document 08/10/18 10:18 SOUSV (Rec: 08/10/18 10:19 [id number]) Pain Reassessment Is this a pain reassessment? No Presence of Pain Presence of Pain Yes Pain Scale Used Protocol: PSCALES Pain Scale Used Numeric Location Pain Location Body Site Back Description Description Intermittent Intensity of Pain at present 8 Pain Behavior Irritability Alleviating Factors/Management Medication Techniques Alleviating Factors Medication Re-Assess: [facility] Pain Assessment Document 08/10/18 11:18 SOUSV (Rec: 08/10/18 12:02 [id number]) Pain Reassessment Is this a pain reassessment? Yes Sleep Is patient sleeping during reassessment? Yes Oxycodone/Acetaminophen (Percocet 5/325 Mg Tab) 1 tab PO STAT STA Stop: 08/10/18 23:31 Last Admin: 08/10/18 23:37 Dose: 1 tab MAR Pain Assessment Document 08/10/18 23:37 RM (Rec: 08/10/18 23:37 RM [facility] [id number] Pain Reassessment Is this a pain reassessment? No Sleep Is patient sleeping during reassessment? No Presence of Pain Presence of Pain Yes Re-Assess: [facility] Pain Assessment Document 08/11/18 00:37 RM (Rec: 08/11/18 02:54 RM [id number]) Pain Reassessment Is this a pain reassessment? Yes Sleep Is patient sleeping during reassessment? No Presence of Pain Presence of Pain No Pantoprazole Sodium (Protonix Ec Tab) 40 mg PO HS [facility]OSA Last Admin: 08/10/18 22:32 Dose: 40 mg Phenylephrine HCl (Raad-Synephrine 0.25% Nasal [place]) 0 ml NS BID PRN PRN Reason: Nasal congestion Last Admin: 08/09/18 18:35 Dose: 2 spr Promethazine HCl/Codeine (Phenergan/Codeine Oral Syrup) 5 ml PO QID PRN PRN Reason: Cough and congestion Last Admin: 08/11/18 10:55 Dose: 5 ml Quetiapine Fumarate (Seroquel Xr) 300 mg PO ONCE ONE; Protocol Stop: 08/07/18 20:02 Last Admin: 08/07/18 20:39 Dose: 300 mg Quetiapine Fumarate (Seroquel Xr) 300 mg PO ONCE ONE; Protocol Stop: 08/08/18 21:44 Last Admin: 08/08/18 22:07 Dose: 300 mg Behavioural Document 08/08/18 22:07 ZARAL (Rec: 08/08/18 22:07 ZARAL [id number]) Maintenance Maintenance Dose Yes Re-Assess: Reassess Psych Meds Document 08/08/18 23:07 ZARAL (Rec: 08/08/18 23:51 ZARAL [id number]) Reassess Psych Med Effective Quetiapine Fumarate (Seroquel Xr) 300 mg PO HS PRN; Protocol PRN Reason: Insomnia Last Admin: 08/10/18 23:40 Dose: 300 mg Behavioural Document 08/10/18 23:40 RM (Rec: 08/10/18 23:40 RM [facility] [id number] Maintenance Maintenance Dose Yes Re-Assess: Reassess Psych Meds Document 08/11/18 00:40 RM (Rec: 08/11/18 02:54 RM [id number]) Reassess Psych Med Effective - Scribe Statement The provider has reviewed the documentation as recorded by the Scribe Danisha Mehta. All medical record entries made by the Scribe were at my direction and personally dictated by me. I have reviewed the chart and agree that the record accurately reflects my personal performance of the history, physical exam, medical decision making, and the department course for this patient. I have also personally directed, reviewed, and agree with the discharge instructions and disposition. Disposition/Present on Arrival - Present on Arrival Any Indicators Present on Arrival: No History of DVT/PE: No History of Uncontrolled Diabetes: No Urinary Catheter: No History of Decub. Ulcer: No History Surgical Site Infection Following: None - Disposition Have Diagnosis and Disposition been Completed?: Yes Diagnosis: Bronchitis Disposition: HOSPITALIZED Disposition Time: 13:00 Patient Plan: Admission Condition: FAIR
[2018-08-07] MEDS ORDERED: Albuterol 0.083% Inhal Sol (2.5 mg/3 mL) UD INH STA (13:39)
[2018-08-07 14:11] LABS: BASO # 0.07 K/mm3 (0.0-2.0); BASO % 0.4 % (0.0-3.0); EOS # 0.4 (0.0-0.7); EOS % 2.4 % (1.5-5.0); HEMOGLOBIN 15.2 g/dL (14.0-18.0); LYMPH # 1.8 (1.2-3.4); MEAN CELL VOLUME 91.5 fl (80.0-105.0); MEAN CORPUSCULAR HEMOGLOBIN 30.8 pg (25.0-35.0); MEAN CORPUSCULAR HGB CONC 33.6 g/dl (31.0-37.0); MEAN PLATELET VOLUME 9.4 fl (7.0-11.0); MONO # 1.6 (0.1-0.6); MONO % 9.7 % (1.0-6.0); RBC 4.94 10^6/uL (3.5-6.1); RED CELL DISTRIBUTION WIDTH 13.3 % (11.5-14.5); WHITE BLOOD COUNT 16.1 10^3/uL (4.5-11.0)
[2018-08-07] MEDS ORDERED: cefTRIAXone 1 gm 1 GM/100 ML BAG IVPB STA (14:15)
[2018-08-07 14:25] LABS: ALB/GLOB RATIO 1.5 (1.1-1.8); ALBUMIN 4.4 g/dL (3.0-4.8); ALT/SGPT 39 U/L (7-56); AST/SGOT 31 U/L (17-59); BLOOD UREA NITROGEN 15 mg/dL (7-21); CALCIUM 9.6 mg/dL (8.4-10.5); GFR NON-AFRICAN AMERICAN > 60
--- NOTE | 2018-08-07 14:41 | RAD ---
Date of service: 08/07/2018 HISTORY: sob COMPARISON: 01/24/2017 FINDINGS: LUNGS: No active pulmonary disease. PLEURA: No significant pleural effusion identified, no pneumothorax apparent. CARDIOVASCULAR: No aortic atherosclerotic calcification present. Normal cardiac size. No pulmonary vascular congestion. OSSEOUS STRUCTURES: No significant abnormalities. VISUALIZED UPPER ABDOMEN: Normal. OTHER FINDINGS: None. IMPRESSION: No active disease.
[2018-08-07] MEDS ORDERED: QUEtiapine 300 mg XR Tab PO ONE (20:01)
--- NOTE | 2018-08-07 22:32 | CARD ---
APPROVED REPORT Date of service: 08/07/2018 EKG Measurement Heart [id number] <Conclusion> Sinus tachycardia Rightward axis Borderline ECG
[2018-08-07] MEDS: Budesonide 0.5 mg/2 ml Inhal Susp UD IH SCH (23:35)
[2018-08-07] MEDS ORDERED: MethylPREDNISolone 40 mg Vial IVP SCH (23:45)
[2018-08-08 02:40] VITALS: BMI 27.8
[2018-08-08] MEDS: Acetylcysteine 20% Inhal Sol (30ml) IH SCH ×2 (07:50→20:53)
[2018-08-08] MEDS: Arformoterol 15 mcg/2 ml Inh Sol IH SCH ×2 (07:50→20:52)
[2018-08-08] MEDS: Budesonide 0.5 mg/2 ml Inhal Susp UD IH SCH ×2 (07:50→20:53)
[2018-08-08] MEDS ORDERED: MethylPREDNISolone 40 mg Vial IVP SCH (08:00)
[2018-08-08] MEDS: Enoxaparin 40 mg Syringe SC SCH (10:58)
[2018-08-08] MEDS: cefTRIAXone 1 gm 1 GM/100 ML BAG IVPB SCH (10:59)
[2018-08-08] MEDS: Oxycodone/Acetaminophen 5/325 mg Tab PO PRN (11:03)
[2018-08-08] MEDS: Insulin Reg-LOW-Coverage SC SCH ×3 (12:51→22:07)
--- NOTE | 2018-08-08 15:49 | CP.PCM.APN ---
Subjective - Date & Time of Evaluation Date of Evaluation: 08/08/18 Time of Evaluation: 01:00 - Subjective Subjective: Patient seen and examined in bed. noted to be coughing, productive, yellow sputum, in no acute distess. sounds congested. Denied other complaints. Objective - Vital Signs/Intake and Output Vital Signs (last 24 hours): Temp Pulse Resp BP Pulse Ox 98.4 F 96 H 20 118/64 98 08/08/18 08:47 08/08/18 08:47 08/08/18 08:47 08/08/18 08:47 08/07/18 20:41 Intake and Output: 08/08/18 08/08/18 06:59 18:59 Intake Total 120 Balance 120 - Medications Medications: Current Medications Acetylcysteine (Mucomyst 20% Inhal Yari (30ml)) 3 ml IH BIDRESP [facility]IPOSA Last Admin: 08/08/18 07:50 Dose: 3 ml Albuterol/Ipratropium (Duoneb 3 Mg/0.5 Mg (3 Ml) Ud) 3 ml IH [id number] [facility]A Arformoterol Tartrate (Brovana) 15 mcg IH [id number] [facility] Last Admin: 08/08/18 07:50 Dose: 15 mcg Budesonide (Pulmicort Respules) 0.5 mg IH BIDRESP [facility]IPOSA Last Admin: 08/08/18 07:50 Dose: 0.5 mg Clonazepam (Klonopin) 0.5 mg PO BID PRN; Protocol PRN Reason: Anxiety Enoxaparin Sodium (Lovenox) 40 mg SC DAILY MARIPOSA; Protocol Last Admin: 08/08/18 10:58 Dose: 40 mg Fluticasone Propionate (Flonase) 1 actuation NS HS MARIPOSA Ceftriaxone Sodium (Rocephin 1 Gram Ivpb) 1 gm in 100 mls @ 100 mls/hr IVPB DAILY [facility]IPOSA; Protocol Last Admin: 08/08/18 10:59 Dose: 100 mls/hr Doxycycline Hyclate 100 mg/ (Sodium Chloride) 100 mls @ 100 mls/hr IVPB Q12 [facility]OSA; Protocol Last Admin: 08/08/18 11:00 Dose: 100 mls/hr Insulin Detemir (Levemir) 10 unit SC DAILY [facility] Insulin Human Regular (Humulin R Low) 0 units SC ACHS [facility]OSA; Protocol Last Admin: 08/08/18 12:51 Dose: 3 units Methylprednisolone (Solu-Medrol) 40 mg IVP Q6 [facility] Montelukast Sodium (Singulair) 10 mg PO HS [facility] Oxycodone/Acetaminophen (Percocet 5/325 Mg Tab) 1 tab PO BID PRN PRN Reason: Pain, severe (8-10) Stop: 08/10/18 20:06 Last Admin: 08/08/18 11:03 Dose: 1 tab Pantoprazole Sodium (Protonix Ec Tab) 40 mg PO HS MARIPOSA - Labs Labs: 08/07/18 14:00 08/07/18 14:00 - Constitutional Appears: Well, No Acute Distress - Head Exam Head Exam: NORMOCEPHALIC - Eye Exam Eye Exam: Normal appearance - Neck Exam Neck Exam: Full ROM - Respiratory Exam Respiratory Exam: Decreased Breath Sounds, Wheezes - Cardiovascular Exam Cardiovascular Exam: +S1, +S2 - GI/Abdominal Exam GI & Abdominal Exam: Soft - Rectal Exam Rectal Exam: Deferred - Exam Exam: absent: Circumcision, NORMAL INSPECTION, Scrotal Swelling, Testicular Tenderness, Uretheral Discharge, Testicular Vertical Lie, Bladder Distension External exam: absent: Ecchymosis, Erythema, Lacerations, Lesions, NORMAL EXTERNAL EXAM, Swelling Speculum exam: absent: Cervical Discharge, Erythema, Foreign Body, Laceration, NORMAL SPECULUM EXAM, Tissue, Vaginal Bleeding, Vaginal Discharge Bimanual exam: absent: Adenexal Mass, Adnexal, Cervical Motion Tendernes, NORMAL BIMANUAL EXAM, Uterine Enlargement, Uterine Tenderness - Extremities Exam Extremities Exam: Full ROM - Back Exam Back Exam: NORMAL INSPECTION - Neurological Exam Neurological Exam: Alert, Awake, Oriented x3 - Psychiatric Exam Psychiatric exam: Normal Affect, Normal Mood - Skin Skin Exam: Dry, Intact, Normal Color, Warm Assessment and Plan - Assessment and Plan (Free Text) Assessment: ITS Impressions Chest X-Ray 08/07/18 13:09 IMPRESSION: No active disease. Assessment: 67 year old male, with past medical history of HTN, DM, CVA, dyslipidemia and COPD, presents to the ED for evaluation of shortness of breath and productive cough since 1 month, treated in ED with Duoneb, solumedrol, admitted for COPD Exacberation. Plan: 1. COPD Exacerbation IV steroid increased to [address] pending. cont.Duonebs, bronchodilators pulm consult pending. 2. Cough,productive pending sputum culture cont. recs per pulm, Will continue to monitor clinical status and follow closely.
--- NOTE | 2018-08-08 16:38 | CON ---
DATE: 08/08/2018 PULMONARY CONSULT NOTE REFERRING PHYSICIAN: Dr. Aleks Pizano. REASON FOR CONSULT: COPD. HISTORY OF PRESENT ILLNESS: This is a 67-year-old man, with past medical history significant for stroke, COPD, diabetes, anxiety disorder, degenerative joint disease, and dyslipidemia, who presented to emergency room complaining of shortness of breath and productive cough for about a month. The patient reports that symptoms worsened in the past few days which brought him to the emergency room. States that he had productive cough with yellow sputum. Today the patient seen sitting up in bed, still noted with cough and nasal congestion. Reports that he is still smoking actively. PAST MEDICAL HISTORY: Chronic obstructive lung disease, active smoker, hypertension, history of stroke, diabetes mellitus, degenerative joint disease, and anxiety disorder. ALLERGIES: NO KNOWN DRUG ALLERGIES. FAMILY HISTORY: Significant for cardiopulmonary disease. SOCIAL HISTORY: Active smoker. No EtOH abuse. No illicit drug use. MEDICATIONS: Reviewed. Mucomyst 3 mL inhalation twice a day, Brovana 15 mcg every 12 hours, Pulmicort 0.5 mg twice a day, Rocephin 1 g daily, Klonopin 0.5 mg twice a day p.r.n., doxycycline 100 mg every 12 hours, Lovenox 40 mg subcu daily, Levemir 10 units subcu daily, Humulin R sliding scale before meals and at bedtime, Solu-Medrol 40 mg every 6 hours, and Percocet 5/325 mg twice a day p.r.n. REVIEW OF SYSTEMS: No headache, shortness of breath, chest pain, abdominal pain, nausea, vomiting, diarrhea, leg pain, or leg swelling reported. The patient does report having cough and nasal congestion. PHYSICAL EXAMINATION: GENERAL: No acute distress. VITAL SIGNS: Blood pressure 118/64, pulse 96, temperature 98.4, and oxygen saturation 98% on room air. HEENT: Moist mucous membranes. Crowded airway. Tender sinuses upon palpation. NECK: Supple. No JVD. LUNGS: Crackles at the bases; few rhonchi bilaterally. CARDIOVASCULAR: S1 and S2. ABDOMEN: Soft and nontender. No distension. No organomegaly. EXTREMITIES: No bilateral lower extremity edema. NEUROLOGIC: Awake, alert, and verbal. Follows commands. LABORATORY DATA: Reviewed. WBC 16.1, RBC 4.94, hemoglobin 15.2, hematocrit 45.2, and platelets 270. Sodium 137, potassium 4.1, chloride 102, carbon dioxide 27, anion gap 12, BUN 15, creatinine 0.8, and GFR greater than 60. POC glucose 424, random glucose 170, calcium 9.6, total bilirubin 0.8, AST 31, ALT 39, alkaline phosphatase 106, total protein 7.2, albumin 4.4, globulin 2.8, and albumin-globulin ratio 1.5. Influenza type A and B negative. EKG shows sinus tachycardia. Chest x-ray shows no active disease. IMPRESSION AND PLAN: Chronic obstructive lung disease exacerbation, sinusitis, active smoker, diabetes mellitus, and suspected sleep apnea syndrome. Continue inhaled bronchodilators. Continue steroids and deep venous thrombosis prophylaxis. We will place the patient on Protonix for gastric prophylaxis. We will add Flonase nasal spray and Singulair 10 mg p.o. at bedtime. Sleep apnea precaution, head of bed elevated at 45 degrees. Discussed smoking cessation with the patient. This patient was seen and examined with Dr. Trammell. Discussed assessment and plan as described above. This patient was seen and examined with Jose De Jesus Mcgowan, nurse practitioner. Discussed assessment and plan as described above. Thank you for this consult. We will follow with you. Jose De Jesus Mcgowan APN Anushka Trammell MD
[2018-08-08] MEDS: MethylPREDNISolone 40 mg Vial IVP SCH (18:03)
[2018-08-08] MEDS: Promethazine/Cod 6.25mg-10mg/5ml Syr UD PO PRN (18:20)
[2018-08-08] MEDS: Albuterol-Ipratrop 3 mg / 0.5 (3 ml) UD IH SCH (20:52)
[2018-08-08] MEDS: Fluticasone Nasal 50 mcg/Spray NS SCH (21:41)
[2018-08-08] MEDS: Pantoprazole 40 mg EC Tab PO SCH (21:42)
[2018-08-08] MEDS ORDERED: QUEtiapine 300 mg XR Tab PO ONE (21:43)
--- NOTE | 2018-08-08 23:56 | PN ---
DATE: 08/08/2018 SUBJECTIVE: The patient was seen today, complained of cough, still persistent cough with phlegm production. No chest pain except from coughing. The patient was seen by Pulmonary, Dr. Trammell. PHYSICAL EXAMINATION: VITAL SIGNS: Today, his temperature 98.4, heart rate 96, blood pressure 118/64, respirations 20. HEAD AND NECK: Normal. No JVD. No thyromegaly. CHEST: Prolonged expiration. CARDIAC: First sound and second sounds are normal. ABDOMEN: Soft, nontender. EXTREMITIES: No edema. NEUROLOGIC: There is mild weakness in his left lower extremity. LABORATORY DATA: The patient had laboratory study including sugar which is elevated in the [address] chest was ordered, result is still pending. IMPRESSION AND PLAN: 1. Acute chronic obstructive pulmonary disease exacerbation. Continue steroids. We will increase his steroid to 60 mg intravenously every 6 hours. Continue inhaled bronchodilators. Continue intravenous antibiotics, doxycycline plus Rocephin. Follow up with Pulmonology for pulmonary consult. 2. History of chronic back pain. Continue Percocet. 3. Chronic anxiety. Continue Klonopin. 4. Diabetes. We will give the patient insulin coverage. Resume oral medications and medium-scale insulin coverage. We will follow up. The patient is also getting Mucomyst, chest physical therapy, Singulair. Continue gastrointestinal and deep venous thrombosis prophylaxis. Aleks Pizano MD
[2018-08-09] MEDS: MethylPREDNISolone 40 mg Vial IVP SCH ×5 (00:07→22:38)
[2018-08-09] MEDS: Promethazine/Cod 6.25mg-10mg/5ml Syr UD PO PRN ×3 (00:59→21:09)
[2018-08-09] MEDS: Albuterol-Ipratrop 3 mg / 0.5 (3 ml) UD IH SCH ×4 (02:06→19:38)
[2018-08-09 07:09] LABS: HEMOGLOBIN 14.6 g/dL (14.0-18.0); MEAN CELL VOLUME 90.6 fl (80.0-105.0); MEAN CORPUSCULAR HEMOGLOBIN 31.1 pg (25.0-35.0); MEAN CORPUSCULAR HGB CONC 34.3 g/dl (31.0-37.0); MEAN PLATELET VOLUME 9.9 fl (7.0-11.0); RBC 4.7 10^6/uL (3.5-6.1); RED CELL DISTRIBUTION WIDTH 13.2 % (11.5-14.5); WHITE BLOOD COUNT 23.3 10^3/uL (4.5-11.0)
[2018-08-09 07:40] LABS: ALB/GLOB RATIO 1.4 (1.1-1.8); ALBUMIN 3.9 g/dL (3.0-4.8); ALT/SGPT 31 U/L (7-56); AST/SGOT 33 U/L (17-59); BLOOD UREA NITROGEN 27 mg/dL (7-21); CALCIUM 9.2 mg/dL (8.4-10.5); GFR NON-AFRICAN AMERICAN > 60
[2018-08-09] MEDS: Arformoterol 15 mcg/2 ml Inh Sol IH SCH ×2 (08:06→19:38)
[2018-08-09] MEDS: Budesonide 0.5 mg/2 ml Inhal Susp UD IH SCH ×2 (08:08→19:38)
[2018-08-09] MEDS: Acetylcysteine 20% Inhal Sol (30ml) IH SCH (08:08)
--- NOTE | 2018-08-09 08:13 | HP ---
DATE OF EXAM: 08/08/2018 CHIEF COMPLAINT: Persistent cough. HISTORY OF PRESENT ILLNESS: This patient is a 67-year-old male with history of hypertension, diabetes, CVA In the past, dyslipidemia, COPD, came to the ER for persistent cough despite of being treated with antibiotic using his inhalers. Patient came in with short of breath, has productive cough with yellow sputum, and not improving as outpatient. He has no other complaints. He denies any fever, chills, nausea, vomiting, or chest pain. ALLERGIES: REPORTED, HE HAS ALLERGY TO PLAVIX. SOCIAL HISTORY: with children. He quit smoking years ago. MEDICATIONS: He takes multiple medications at home. Januvia 100 mg daily, Zantac, Seroquel 300 mg at bedtime, Lantus 50 units at bedtime, ibuprofen p.r.n., Pepcid 20 mg p.o. daily, and clonazepam 0.5 mg once daily, Lipitor 20 mg, aspirin 81 mg, inhalers and nebulizers at home. REVIEW OF SYSTEMS: Patient does have chronic cough. He does have chronic back pain, chronic disc disease. Rest of the review of system is negative. PHYSICAL EXAMINATION: VITAL SIGNS: On 08/07/2018, temperature is 98.8, heart rate is 98, blood pressure is 175/55, respirations are 20, and saturation is 96%. HEAD AND NECK: Normal. No JVD. No thyromegaly. CHEST: There is a few wheeze, no crepitations, and prolonged expirations. ABDOMEN: Soft and nontender. EXTREMITIES: No edema. NEUROLOGIC: Nonfocal. LABORATORY DATA: His chest x-ray showed no active disease. White count 16.1, hemoglobin 15.2, hematocrit 45.2, and platelets 207. Chemistry noted for sodium 137, potassium 4.1, chloride 102, bicarbonate 27, BUN 15, creatinine is 0.8. Blood sugar 170. Liver function test is normal. Patient had influenza serology which is negative. He also had electrocardiogram which shows sinus tachycardia, right axis deviation. IMPRESSION AND PLAN: 1. This is a 67-year-old male came in with persistent cough, short of breath, wheezing, history of chronic obstructive, failed outpatient treatment. We will admit the patient for acute chronic obstructive pulmonary disease exacerbation. We will get pulmonary consult, IV steroids, IV antibiotics, and inhaled bronchodilators, Pulmicort and Brovana plus nebulizer treatment. Continue current medications. We will put the patient on doxycycline plus Rocephin and we will follow up clinically. 2. Patient has chronic anxiety. Continue Klonopin. Continue Percocet p.r.n. 3. History of cerebrovascular accident. Continue aspirin. 4. PATIENT HAS ALLERGY TO PLAVIX. 5. Continue current therapy. Aleks Pizano MD
[2018-08-09] MEDS: Insulin Reg-LOW-Coverage SC SCH ×2 (08:35→12:00)
--- NOTE | 2018-08-09 08:58 | CT ---
Date of service: 08/08/2018 PROCEDURE: CT Chest without contrast HISTORY: assess, infiltrates, pna? COMPARISON: 08/06/2018 TECHNIQUE: Contiguous axial images were obtained through the chest without intravenous contrast enhancement. Sagittal and coronal reconstructions were performed. Radiation dose: Total exam DLP = 349.54 mGy-cm. This CT exam was performed using one or more of the following dose reduction techniques: Automated exposure control, adjustment of the mA and/or kV according to patient size, and/or use of iterative reconstruction technique. FINDINGS: LUNGS: Emphysematous changes are seen in the upper lobes bilaterally. There is no evidence of infiltrate MEDIASTINUM: Unremarkable thoracic aorta. No aneurysm. Normal sized heart. Main pulmonary artery unremarkable. No vascular congestion. No lymphadenopathy. Extensive aortic calcification PLEURA: No pleural fluid. No pneumothorax. BONES: No fracture. No destructive lesion. UPPER ABDOMEN: Grossly unremarkable. OTHER FINDINGS: The report concurs with the preliminary [facility] report IMPRESSION: No acute pulmonary disease
[2018-08-09] MEDS ORDERED: Insulin Detemir 100 units/ml Vial (Levemir) SC SCH (10:00)
[2018-08-09] MEDS: Enoxaparin 40 mg Syringe SC SCH (11:03)
[2018-08-09] MEDS: cefTRIAXone 1 gm 1 GM/100 ML BAG IVPB SCH (11:03)
[2018-08-09] MEDS ORDERED: Albuterol-Ipratrop 3 mg / 0.5 (3 ml) UD IH PRN (12:18)
[2018-08-09] MEDS ORDERED: Insulin Regular 1 UNITS/0.01 ML ML SC ONE (13:22)
--- NOTE | 2018-08-09 13:51 | PN ---
DATE: 08/09/2018 PULMONARY PROGRESS NOTE REFERRING PHYSICIAN: Aleks Pizano MD. SUBJECTIVE: The patient is lying in bed. No acute distress. No overnight events reported. The patient reports that he is having a lot of persistent coughing. Still with some shortness of breath. No headache, rhinitis, chest pain, abdominal pain, nausea, vomiting, diarrhea, leg pain, or leg swelling reported. OBJECTIVE: GENERAL: No acute distress. VITAL SIGNS: Blood pressure 132/74, pulse 97, temperature 98.1, and oxygen saturation 94%. HEENT: Moist mucous membranes. Crowded airway. NECK: Supple. No JVD. LUNGS: Crackles at the base and few rhonchi. CARDIOVASCULAR: S1 and S2. ABDOMEN: Soft and nontender. No distention. No organomegaly. EXTREMITIES: No bilateral lower extremities edema. NEUROLOGIC: Awake, alert, verbal, and follows commands. MEDICATIONS: Reviewed. Mucomyst 3 mL inhalation twice a day, DuoNeb 3 mL inhalation every 6 hours, DuoNeb 3 mL inhalation every 2 hours, Brovana 15 mcg every 12 hours, Pulmicort 0.5 mg twice a day, Rocephin 1 gram daily, Klonopin 0.5 mg twice a day p.r.n., doxycycline 100 mg every 12 hours, Lovenox 40 mg daily, Flonase nasal spray at bedtime, Levemir 20 units subcutaneous at bedtime, Humulin R sliding scale a.c. and at bedtime, Solu-Medrol 40 mg every 6 hours, Singulair 10 mg at bedtime, Percocet 5/325 mg twice a day p.r.n. for severe pain, Protonix 40 mg at bedtime, and Phenergan-Codeine 5 mL four times a day p.r.n.. LABORATORY DATA: Reviewed. WBC 23.3, RBC 4.7, hemoglobin 14.6, hematocrit 42.6, and platelets 285. Sodium 136, potassium 4.6, chloride 103, carbon dioxide 24, anion gap 13, BUN 27, creatinine 0.9, GFR greater than 60, POC glucose 320, and random glucose 315. Calcium 9.2, total bilirubin 0.4, AST 33, ALT 31, alkaline phosphatase 106, total protein 6.6, albumin 3.9, globulin 2.8, and albumin-globulin ratio 1.4. Chest CT shows emphysematous changes seen in upper lobes bilaterally. No evidence of infiltrate. Extensive aortic calcification. No acute pulmonary disease. IMPRESSION AND PLAN: Chronic obstructive lung disease exacerbation, sinusitis, active smoker, suspected sleep apnea syndrome, and diabetes mellitus. Continue inhaled bronchodilators. Continue steroids, deep venous thrombosis prophylaxis, and gastric prophylaxis. Continue leukotriene inhibitors, Flonase nasal spray, sleep apnea precaution, head of bed elevated 45 degrees, and smoking cessation. We will place the patient on Tessalon Perles for cough. We will order lipid profile to be done due to aortic calcification and fall precautions. This patient was seen and examined with Dr. Trammell. Discussed assessment and plan as described above. This patient was seen and examined with Roslyn Dela Cruz, nurse practitioner. Discussed assessment and plan as described above. Thank you for this consult. We will follow with you. Jose De Jesus Mcgowan APN Anushka Trammell MD [facility]
[2018-08-09] MEDS: Insulin Reg-HIGH-Coverage SC SCH ×2 (16:45→21:47)
[2018-08-09] MEDS ORDERED: Phenylephrine 0.25% Nasal Spray (15 ml) NS PRN (17:22)
[2018-08-09] MEDS: Acetylcysteine 20% Inhal Soln (4ml) IH SCH (19:41)
[2018-08-09] MEDS: Fluticasone Nasal 50 mcg/Spray NS SCH (21:08)
[2018-08-09] MEDS: Pantoprazole 40 mg EC Tab PO SCH (21:09)
[2018-08-09] MEDS: QUEtiapine 300 mg XR Tab PO PRN (21:10)
[2018-08-09] MEDS: Oxycodone/Acetaminophen 5/325 mg Tab PO PRN (21:16)
[2018-08-09] MEDS: Insulin Detemir 100 units/ml Vial (Levemir) SC SCH (21:48)
[2018-08-10] MEDS: Albuterol-Ipratrop 3 mg / 0.5 (3 ml) UD IH SCH ×4 (01:09→20:13)
[2018-08-10] MEDS: MethylPREDNISolone 40 mg Vial IVP SCH ×2 (05:34→22:33)
[2018-08-10 06:59] LABS: MEAN CELL VOLUME 91.4 fl (80.0-105.0); MEAN CORPUSCULAR HEMOGLOBIN 30.8 pg (25.0-35.0); MEAN CORPUSCULAR HGB CONC 33.7 g/dl (31.0-37.0); RBC 4.54 10^6/uL (3.5-6.1); RED CELL DISTRIBUTION WIDTH 13.4 % (11.5-14.5); WHITE BLOOD COUNT 22.3 10^3/uL (4.5-11.0)
[2018-08-10 07:33] LABS: LDL CHOLESTEROL 63 mg/dL (0-129)
[2018-08-10 07:48] LABS: ALB/GLOB RATIO 1.5 (1.1-1.8); ALBUMIN 3.6 g/dL (3.0-4.8); ALT/SGPT 31 U/L (7-56); AST/SGOT 29 U/L (17-59); BLOOD UREA NITROGEN 27 mg/dL (7-21); CALCIUM 9.2 mg/dL (8.4-10.5); GFR NON-AFRICAN AMERICAN > 60; HDL CHOLESTEROL 42 mg/dL (29-60)
[2018-08-10] MEDS: Arformoterol 15 mcg/2 ml Inh Sol IH SCH ×2 (07:55→20:12)
[2018-08-10] MEDS: Budesonide 0.5 mg/2 ml Inhal Susp UD IH SCH ×2 (07:55→20:27)
[2018-08-10] MEDS: Acetylcysteine 20% Inhal Soln (4ml) IH SCH ×2 (07:55→20:12)
[2018-08-10] MEDS: Insulin Reg-HIGH-Coverage SC SCH ×4 (08:58→23:17)
[2018-08-10] MEDS: cefTRIAXone 1 gm 1 GM/100 ML BAG IVPB SCH (09:21)
[2018-08-10] MEDS: Enoxaparin 40 mg Syringe SC SCH (09:23)
[2018-08-10] MEDS: Oxycodone/Acetaminophen 5/325 mg Tab PO PRN (10:18)
--- NOTE | 2018-08-10 13:49 | PN ---
DATE: 08/10/2018 PULMONARY PROGRESS NOTE REFERRING PHYSICIAN: Aleks Pizano MD. SUBJECTIVE: The patient is sitting up in bed. No acute distress. Reports no overnight events reported. Reports cough is slightly better, but still has coughing spells at times. Still with some shortness of breath. No headache, rhinitis, chest pain, abdominal pain, nausea, vomiting, diarrhea, leg pain, or leg swelling reported. PHYSICAL EXAMINATION GENERAL: No acute distress. VITAL SIGNS: Blood pressure 121/66, pulse 84, temperature 97.8, and oxygen saturation 96% on nasal cannula. HEENT: Moist mucous membranes. Crowded airway. NECK: Supple. No JVD. LUNGS: Scattered rhonchi bilaterally. CARDIOVASCULAR: S1 and S2. ABDOMEN: Soft and nontender. No distension. No organomegaly. EXTREMITIES: No bilateral lower extremity edema. NEUROLOGIC: Awake, alert, verbal, and follows commands. MEDICATIONS: Reviewed. Mucomyst 3 mL inhalation twice a day, DuoNeb 3 mL inhalation every 6 hours, DuoNeb 3 mL inhalation every 2 hours p.r.n., Brovana 15 mcg every 12 hours, Tessalon Perles 100 mg two times a day, Pulmicort 0.5 mg twice a day, Rocephin 1 gram daily, Klonopin 0.5 mg twice a day p.r.n., doxycycline 100 mg every 12 hours, Lovenox 40 mg daily, Flonase nasal spray at bedtime, Levemir 20 units subcutaneous at bedtime, Humulin R sliding scale a.c. and at bedtime, Solu-Medrol 40 mg every 8 hours, Singulair 10 mg at bedtime, Percocet 5/325 mg twice a day p.r.n., Protonix 40 mg at bedtime, and noe-synephrine nasal spray twice a day p.r.n., Phenergan-Codeine 5 mL four times a day p.r.n., and Seroquel 300 mg at bedtime p.r.n., LABORATORY DATA: Reviewed. WBC 22.3, RBC 4.54, hemoglobin 14, hematocrit 41.5, and platelets 294. Sodium 134, potassium 4.6, chloride 102, carbon dioxide 25, anion gap 11, BUN 27, creatinine 0.9, GFR greater than 60, POC glucose 333 and random glucose 329. Calcium 9.2, total bilirubin 0.3, AST 29, ALT 31, alkaline phosphatase 102, total protein 6.1, albumin 3.6, globulin 2.5, albumin-globulin ratio 1.5, triglyceride 65, cholesterol 111, LDL cholesterol 63, and HDL cholesterol 42. IMPRESSION AND PLAN: Chronic obstructive lung disease exacerbation, sinusitis, active smoker, sleep apnea syndrome and diabetes mellitus. Continue inhaled bronchodilators. We will decrease Solu-Medrol to 40 mg every 12 hours. Deep venous thrombosis prophylaxis and gastric prophylaxis. Continue Flonase, leukotriene inhibitors, head of bed elevated 45 degrees, and sleep apnea precaution. Continue to encourage smoking cessation and fall precaution. This patient was seen and examined with Dr. Trammell. Discussed assessment and plan as described above. This patient was seen and examined with Roslyn Dela Cruz, nurse practitioner. Discussed assessment and plan as described above. Thank you for this consult. We will follow with you. Jose De Jesus Mcgowan APN Anushka Trammell MD [facility]
--- NOTE | 2018-08-10 14:06 | PN ---
DATE: 08/09/2018 SUBJECTIVE: The patient is doing better, still has stuffy nose, on Flonase. Cough is little better. No chest pain, still on IV steroids. PHYSICAL EXAMINATION VITAL SIGNS: His temperature is 98.1, heart rate 97, blood pressure 132/74, respiratory rate 18, and saturation 98%. HEAD AND NECK: Normal. No JVD. No thyromegaly. LUNGS: Clear now bilaterally. Few wheeze, but better. CARDIAC: First sound, second sound normal. No murmur, rub, or gallop. ABDOMEN: Soft, nontender. EXTREMITIES: No edema. NEUROLOGIC: He is normal. He moves all extremities. He does have some mild left leg. LABORATORY DATA: His white count , hemoglobin 14.6, hematocrit 42.6, platelets 285. Chemistry; sodium 136, potassium 4, chloride 103, bicarb 24, BUN 27, creatinine 0.9, and blood sugar is 315. Liver function test is normal. IMPRESSION 1. Acute chronic obstructive pulmonary disease exacerbation. Continue IV steroids. We will decrease the steroid dose to every 8 hours 40 mg. Continue inhaled bronchodilators, Mucomyst, chest PT, seems doing better and continue cough medicine which if needed. 2. Postnasal drip. We will give Atrovent nasal spray or Raad-Synephrine if not available. 3. Diabetes, seems uncontrolled, steroids related. We will decrease the steroids. We will increase insulin coverage to high scale. We will increase Levemir to twice a day. Continue . 4. Chronic cerebrovascular accident. Continue aspirin. PLAN: Continue current therapy. Continue GI and DVT prophylaxis. Aleks Pizano MD
[2018-08-10 17:51] VITALS: RESP 20
[2018-08-10] MEDS: Pantoprazole 40 mg EC Tab PO SCH (22:32)
[2018-08-10] MEDS: Insulin Detemir 100 units/ml Vial (Levemir) SC SCH (22:32)
[2018-08-10] MEDS: Fluticasone Nasal 50 mcg/Spray NS SCH (23:17)
[2018-08-10] MEDS ORDERED: Oxycodone/Acetaminophen 5/325 mg Tab PO STA (23:30)
[2018-08-10] MEDS: QUEtiapine 300 mg XR Tab PO PRN (23:40)
[2018-08-11] MEDS ORDERED: Insulin Regular 1 UNITS/0.01 ML ML SC STA (02:08)
[2018-08-11] MEDS: Albuterol-Ipratrop 3 mg / 0.5 (3 ml) UD IH SCH ×2 (02:47→08:22)
[2018-08-11] MEDS: Arformoterol 15 mcg/2 ml Inh Sol IH SCH (08:21)
[2018-08-11] MEDS: Acetylcysteine 20% Inhal Soln (4ml) IH SCH (08:21)
[2018-08-11] MEDS: Budesonide 0.5 mg/2 ml Inhal Susp UD IH SCH (08:22)
[2018-08-11 08:28] VITALS: BP 146/92; PULSE 102; TEMP 98.2; O2SAT 94
[2018-08-11] MEDS: Insulin Reg-HIGH-Coverage SC SCH ×2 (08:46→12:15)
[2018-08-11] MEDS ORDERED: MethylPREDNISolone 40 mg Vial IVP SCH (09:09)
--- NOTE | 2018-08-11 10:10 | PN ---
DATE: 08/11/2018 PULMONARY PROGRESS NOTE REFERRING PHYSICIAN: Aleks Pizano MD SUBJECTIVE: The patient is seen lying in bed, no acute distress. No overnight events reported. Sleeps, he feels better this morning, still having some coughing, but it has improved. No headache, rhinitis, shortness of breath, chest pain, abdominal pain, nausea, vomiting, diarrhea, leg pain, leg swelling reported. OBJECTIVE: VITAL SIGNS: Blood pressure 146/92. pulse 102, temperature 98.2, oxygen saturation 94 room air. GENERAL: No acute distress. HEENT: Moist mucous membranes. Crowded airway. NECK: Supple. No JVD. LUNGS: Scattered rhonchi bilaterally. CARDIOVASCULAR: S1, S2. ABDOMEN: Soft, nontender, nondistended. No organomegaly. EXTREMITIES: No bilateral lower extremity edema. NEUROLOGIC: Awake, alert, verbal, follows commands. MEDICATIONS: Reviewed. Mucomyst 3 mL inhalation twice a day, DuoNeb 3 mL inhalation every 6 hours, DuoNeb 3 mL inhalation every 2 hours p.r.n., Brovana 15 mcg every 12 hours, Tessalon Perles 100 mg three times a day, Pulmicort 0.5 mg inhalation twice a day, Rocephin 1 g daily, Klonopin 0.5 mg twice a day, p.r.n. doxycycline 100 mg every 12 hours, Lovenox 40 mg subcu daily, Flonase nasal spray at bedtime, Levemir 20 units subcu h.s., Humulin R sliding scale a.c. and h.s., Solu-Medrol 40 mg every 12 hours, Singulair 10 mg at bedtime, Protonix 40 mg at bedtime, phenylephrine HCL nasal spray twice a day p.r.n., Phenergan with Codeine 5 mL 4 times a day p.r.n., Seroquel 300 mg p.o. h.s. p.r.n. LABORATORY DATA: Reviewed. POC glucose 229. IMPRESSION AND PLAN: Chronic obstructive lung disease exacerbation, sinusitis, active smoker, sleep apnea syndrome, diabetes mellitus. Continue inhaled bronchodilators. We will decrease Solu-Medrol to 20 mg every 12 hours, gastric prophylaxis, deep venous thrombosis prophylaxis. Continue Flonase leukotriene inhibitors. Sleep apnea precaution, head of bed elevated at 45 degrees. Continue to encourage smoking cessation, fall precaution. The patient was seen and examined with Dr. Trammell. Discussed assessment and plan as described above. The patient was seen and examined with Roslyn Dela Cruz, nurse practitioner. Discussed assessment and plan as described above. Thank you for this consult. We will follow with you. Jose De Jesus Mcgowan APN Anushka Trammell MD
[2018-08-11] MEDS: MethylPREDNISolone 40 mg Vial IVP SCH (10:42)
[2018-08-11] MEDS: Enoxaparin 40 mg Syringe SC SCH (10:42)
[2018-08-11] MEDS: cefTRIAXone 1 gm 1 GM/100 ML BAG IVPB SCH (10:44)
[2018-08-11] MEDS: Promethazine/Cod 6.25mg-10mg/5ml Syr UD PO PRN (10:55)
== END 2018-08-11 14:40 | disposition home or self-care (01) | DRG 192 ==
LOC: ED 12:41 → ERH 14:25 → 3RSO 21:33
PROVIDERS: ADMIT Internal Medicine; ATTEND Internal Medicine
DX: J44.1 Chronic obstructive pulmonary disease with (acute) exacerbation (principal); I10 Essential (primary) hypertension; E09.65 Drug or chemical induced diabetes mellitus with hyperglycemia; T38.0X5A Adverse effect of glucocorticoids and synthetic analogues, initial encounter; K21.9 Gastro-esophageal reflux disease without esophagitis; F17.210 Nicotine dependence, cigarettes, uncomplicated; E78.5 Hyperlipidemia, unspecified; F41.9 Anxiety disorder, unspecified; G47.30 Sleep apnea, unspecified; M19.90 Unspecified osteoarthritis, unspecified site; R00.0 Tachycardia, unspecified; M54.9 Dorsalgia, unspecified; G89.29 Other chronic pain; R09.82 Postnasal drip; Z86.73 Personal history of transient ischemic attack (TIA), and cerebral infarction without residual deficits; Z79.82 Long term (current) use of aspirin; Z88.8 Allergy status to other drugs, medicaments and biological substances; Z79.4 Long term (current) use of insulin

== ENCOUNTER 2018-08-26 20:24 | Emergency (ER) | payer MEDICARE, OTHER ==
[2018-08-26 20:24] VITALS: BMI 27.8
[2018-08-26 20:32] VITALS: TEMP 97.5
[2018-08-26 21:32] LABS: BASO # 0.06 K/mm3 (0.0-2.0); BASO % 0.6 % (0.0-3.0); EOS # 0.3 (0.0-0.7); HEMOGLOBIN 13.6 g/dL (14.0-18.0); LYMPH # 2.9 (1.2-3.4); LYMPH % 27.4 % (22.0-35.0); MEAN CELL VOLUME 93.7 fl (80.0-105.0); MEAN CORPUSCULAR HEMOGLOBIN 30.7 pg (25.0-35.0); MEAN CORPUSCULAR HGB CONC 32.8 g/dl (31.0-37.0); MEAN PLATELET VOLUME 9.6 fl (7.0-11.0); MONO % 9.1 % (1.0-6.0); RBC 4.43 10^6/uL (3.5-6.1); RED CELL DISTRIBUTION WIDTH 13.9 % (11.5-14.5); WHITE BLOOD COUNT 10.5 10^3/uL (4.5-11.0)
[2018-08-26] MEDS ORDERED: Sodium Chloride 0.9% 500 ML IV STA (21:38)
[2018-08-26 21:47] LABS: ALB/GLOB RATIO 1.5 (1.1-1.8); ALBUMIN 3.6 g/dL (3.0-4.8); ALT/SGPT 38 U/L (7-56); AST/SGOT 25 U/L (17-59); BLOOD UREA NITROGEN 17 mg/dL (7-21); CALCIUM 9.3 mg/dL (8.4-10.5); GFR NON-AFRICAN AMERICAN > 60
[2018-08-26 21:54] LABS: LIPASE 25 U/L (23-300)
--- NOTE | 2018-08-26 22:21 | ED PDOC ---
Arrival/HPI - General Historian: Patient - History of Present Illness Narrative History of Present Illness (Text): 08/26/18 22:18 67-year-old male with past medical history of diabetes, COPD, CAD, presents the emergency room complaining of 1 week of constipation, states that he attempts to go to have a bowel movement however only a small amount comes out. He also states that he has been having urinary frequency and dribbling when he urinates. Otherwise reports no fever, chills, chest pain, shortness of breath, nausea, vomiting, diarrhea, hematuria or back pain. Of note patient states that he was just recently admitted in this hospital for bronchitis. <Jaylene Temple PA-C - Last Filed: 08/27/18 00:51> <David Wade - Last Filed: 08/27/18 02:14> - General Chief Complaint: Abdominal Pain Time Seen by Provider: 08/26/18 20:26 Past Medical History - Infectious Disease Hx of Infectious Diseases: None - Tetanus Immunization Tetanus Immunization: Unknown - Cardiac Hx Cardiac Disorders: Yes Hx Hypertension: Yes - Pulmonary Hx Chronic Obstructive Pulmonary Disease (COPD): Yes - Neurological HX Cerebrovascular Accident: Yes - Endocrine/Metabolic Hx Diabetes Mellitus Type 2: Yes - Hematological/Oncological Hx Blood Disorders: No - Musculoskeletal/Rheumatological Hx Falls: Yes - Gastrointestinal Hx Gastroesophageal Reflux: Yes - Genitourinary/Gynecological Hx Genitourinary Disorders: Yes (retention voids small amts) - Psychiatric Hx Depression: Yes Hx Emotional Abuse: No Hx Physical Abuse: No Hx Substance Use: No - Surgical History Hx Cardiac Catheterization: Yes Hx Orthopedic Surgery: Yes (left hip) - Anesthesia Hx Anesthesia: Yes Hx Anesthesia Reactions: No Hx Malignant Hyperthermia: No - Suicidal Assessment Feels Threatened In Home Enviroment: No <Jaylene Temple PA-C - Last Filed: 08/27/18 00:51> Family/Social History Family/Social History: No Known Family HX Smoking Status: Former Smoker Hx Alcohol Use: No Hx Substance Use: No Hx Substance Use Treatment: Yes <Jaylene Temple PA-C - Last Filed: 08/27/18 00:51> Allergies/Home Meds <Jaylene Temple PA-C - Last Filed: 08/27/18 00:51> <David Wade - Last Filed: 08/27/18 02:14> Allergies/Adverse Reactions: Allergies No Known Allergies Allergy (Verified 08/26/18 20:31) Home Medications: Home Meds Medication Instructions Recorded Confirmed Ibuprofen [Motrin Tab] 600 mg PO Q8H PRN 11/19/15 01/24/17 Insulin Glargine, Recombina 15 unit SC HS 11/19/15 01/24/17 [Lantus] Ranitidine HCl 150 mg PO DAILY 11/19/15 01/24/17 SITagliptin [Januvia] 100 mg PO DAILY 11/19/15 01/24/17 Atorvastatin [Lipitor] 20 mg PO DIN 02/03/16 01/24/17 Aspirin [Adult Low Dose Aspirin EC] 81 mg PO DAILY 02/05/16 01/24/17 Review of Systems - Review of Systems Constitutional: absent: Fatigue, Fevers Respiratory: Cough, Sputum. absent: SOB Cardiovascular: absent: Chest Pain, Palpitations, Edema Gastrointestinal: Abdominal Pain, Constipation. absent: Diarrhea, Nausea, Vomiting Genitourinary Male: Frequency, Urinary Output Changes. absent: Dysuria, Hematuria Musculoskeletal: absent: Arthralgias, Back Pain, Neck Pain Skin: absent: Rash, Pruritis, Skin Lesions Neurological: absent: Headache, Dizziness <Jaylene Temple PA-C - Last Filed: 08/27/18 00:51> Physical Exam Vital Signs Temp Pulse Resp BP Pulse Ox 08/26/18 20:31 97.5 F L 88 18 148/74 96 Temperature: Afebrile Blood Pressure: Normal Pulse: Regular Respiratory Rate: Normal Appearance: Positive for: Well-Appearing, Non-Toxic, Comfortable Pain Distress: None Mental Status: Positive for: Alert and Oriented X 3 Finger Stick Blood Glucose: 267 - Systems Exam Head: Present: Atraumatic, Normocephalic Pupils: Present: PERRL Extroacular Muscles: Present: EOMI Conjunctiva: Present: Normal Mouth: Present: Moist Mucous Membranes Neck: Present: Normal Range of Motion Respiratory/Chest: Present: Clear to Auscultation, Good Air Exchange. No: Respiratory Distress, Accessory Muscle Use Cardiovascular: Present: Regular Rate and Rhythm, Normal S1, S2. No: Murmurs Abdomen: Present: Tenderness (+tenderness to the L side and lower abdomen). No: Distention, Peritoneal Signs, Rebound, Guarding, Hernias Back: Present: Normal Inspection Upper Extremity: Present: Normal Inspection. No: Cyanosis, Edema Lower Extremity: Present: Normal Inspection. No: Edema Neurological: Present: GCS=15, CN II-XII Intact, Speech Normal Skin: Present: Warm, Dry, Normal Color. No: Rashes Psychiatric: Present: Alert, Oriented x 3, Normal Insight, Normal Concentration <Jaylene Temple PA-C - Last Filed: 08/27/18 00:51> Vital Signs Temp Pulse Resp BP Pulse Ox 08/26/18 20:31 97.5 F L 88 18 148/74 96 <David Wade - Last Filed: 08/27/18 02:14> Medical Decision Making ED Course and Treatment: 08/26/18 22:20 Previous medical records reviewed, patient was seen in this emergency room on 08/07/2018 and was admitted for bronchitis. During the patient's admission he had a normal chest x-ray, and a normal CT scan of his chest. Plan : - IV - Labs - UA, urine cx - CXR - Toradol - Reassess / disposition - CT A/P p.o. and IV contrast CXR : NAD. Labs reviewed and wnl. Patient tolerating po contrast without nausea or vomiting, pending CT and UA. 08/27/18 00:[address] Results still pending. - Lab Interpretations Lab Results: Total Bilirubin 0.5 mg/dL (0.2-1.3) 08/26/18 21:13 AST 25 U/L (17-59) 08/26/18 21:13 ALT 38 U/L (7-56) 08/26/18 21:13 Alkaline Phosphatase 91 U/L (38-126) 08/26/18 21:13 Total Protein 6.1 g/dL (5.8-8.3) 08/26/18 21:13 Albumin 3.6 g/dL (3.0-4.8) 08/26/18 21:13 Globulin 2.5 gm/dL 08/26/18 21:13 Albumin/Globulin Ratio 1.5 (1.1-1.8) 08/26/18 21:13 Lipase 25 U/L (23-300) 08/26/18 21:13 - RAD Interpretation Radiology Orders: 08/26/18 21:04 CHEST PORTABLE [RAD] Stat 08/26/18 21:37 ABDOMEN & PELVIS [ABD PELVIS PO & IV CONTRAST] [CT] Stat - Medication Orders Current Medication Orders: Sodium Chloride (Sodium Chloride 0.9%) 500 mls @ 500 mls/hr IV .Q1H STA Stop: 08/26/18 22:37 Last Admin: 08/26/18 21:45 Dose: 500 mls/hr eMAR Start Stop Document 08/26/18 21:45 CNR (Rec: 08/26/18 21:45 CNR [id number]) Intravenous Solution Start Date 08/26/18 Start Time 21:45 End Date 08/26/18 End time 22:45 Total Infusion Time 60 Discontinued Medications Ketorolac Tromethamine (Toradol) 15 mg IVP STAT STA Stop: 08/26/18 21:38 Last Admin: 08/26/18 21:42 Dose: 15 mg MAR Pain Assessment Document 08/26/18 21:42 CNR (Rec: 08/26/18 21:42 CNR [id number]) Pain Reassessment Is this a pain reassessment? No IVP Administration Document 08/26/18 21:42 CNR (Rec: 08/26/18 21:42 CNR [id number]) Charges for Administration # of IVP Administrations 1 <Jaylene Temple PA-C - Last Filed: 08/27/18 00:51> ED Course and Treatment: CT Abdomen and Pelvis: Moderate amount of fecal residue in the large bowels. Mild prostatomegaly. Prostatic calcifications. Mild diffuse thickening of the bladder. Unremarkable iliac stents. The liver is of uniform attenuation without mass or defect. There is no intra or extrahepatic biliary ductal dilatation. The spleen is normal. The gallbladder is within normal limits. The pancreas is of normal contour and attenuation characteristics. There is no evidence of adrenal mass. Both kidneys demonstrate prompt and equal nephrograms. The kidneys are normal in size, shape and configuration. There is no evidence of renal or ureteral mass. No renal or ureteral calculi are identified. There is no hydroureter or hydronep hrosis. No evidence for appendicitis. There is no bowel wall thickening. No evidence for small or large bowel obstruction. There is no evidence of abdominal ascites or lymphadenopathy. Distended bladder. There is no evidence of intrinsic or extrinsic bladder mass. There is no pelvic ascites or lymphadenopathy. Images of the lung bases show no evidence of pleural or parenchymal mass. There are no pleural effusions. The bony structures are free of lytic or blastic lesions. IMPRESSION: Constipation. No evidence of acute abdominal or pelvic pathology. Distended bladder. Thank you for your kind referral of this patient. Electronically signed on Aug 27, 2018 1:32:56 AM EDT by: Yvan Cazares M.D., Certified by ABR, MSK, Neuroradiology - Lab Interpretations Lab Results: Total Bilirubin 0.5 mg/dL (0.2-1.3) 08/26/18 21:13 AST 25 U/L (17-59) 08/26/18 21:13 ALT 38 U/L (7-56) 08/26/18 21:13 Alkaline Phosphatase 91 U/L (38-126) 08/26/18 21:13 Total Protein 6.1 g/dL (5.8-8.3) 08/26/18 21:13 Albumin 3.6 g/dL (3.0-4.8) 08/26/18 21:13 Globulin 2.5 gm/dL 08/26/18 21:13 Albumin/Globulin Ratio 1.5 (1.1-1.8) 08/26/18 21:13 Lipase 25 U/L (23-300) 08/26/18 21:13 - RAD Interpretation Radiology Orders: 08/26/18 21:04 CHEST PORTABLE [RAD] Stat 08/26/18 21:37 ABDOMEN & PELVIS [ABD PELVIS PO & IV CONTRAST] [CT] Stat - Medication Orders Current Medication Orders: Sodium Chloride (Sodium Chloride 0.9%) 500 mls @ 500 mls/hr IV .Q1H STA Stop: 08/26/18 22:37 Last Admin: 08/26/18 21:45 Dose: 500 mls/hr eMAR Start Stop Document 08/26/18 21:45 CNR (Rec: 08/26/18 21:45 CNR [id number]) Intravenous Solution Start Date 08/26/18 Start Time 21:45 End Date 08/26/18 End time 22:45 Total Infusion Time 60 Discontinued Medications Ketorolac Tromethamine (Toradol) 15 mg IVP STAT STA Stop: 08/26/18 21:38 Last Admin: 08/26/18 21:42 Dose: 15 mg MAR Pain Assessment Document 08/26/18 21:42 CNR (Rec: 08/26/18 21:42 CNR [id number]) Pain Reassessment Is this a pain reassessment? No IVP Administration Document 08/26/18 21:42 CNR (Rec: 08/26/18 21:42 CNR [id number]) Charges for Administration # of IVP Administrations 1 <David Wade - Last Filed: 08/27/18 02:14> - PA / ROGUER / Resident Statement MARY has reviewed & agrees with the documentation as recorded. <Jaylene Temple PA-C - Last Filed: 08/27/18 00:51> - PA / ROGUER / Resident Statement MARY has reviewed & agrees with the documentation as recorded. MARY has examined the patient and agrees with the treatment plan. <David Wade - Last Filed: 08/27/18 02:14> Disposition/Present on Arrival - Present on Arrival Any Indicators Present on Arrival: No History of DVT/PE: No History of Uncontrolled Diabetes: No Urinary Catheter: No History of Decub. Ulcer: No History Surgical Site Infection Following: None - Disposition Have Diagnosis and Disposition been Completed?: Yes <Jaylene Temple PA-C - Last Filed: 08/27/18 00:51> - Present on Arrival Any Indicators Present on Arrival: No - Disposition Have Diagnosis and Disposition been Completed?: Yes Disposition Time: 01:59 Patient Plan: Discharge <David Wade - Last Filed: 08/27/18 02:14> - Disposition Diagnosis: Constipation, Bronchitis Disposition: HOME/ ROUTINE Patient Problems: Current Active Problems Problem Status Onset Bronchitis Acute Constipation Acute Condition: GOOD Discharge Instructions (ExitCare): Acute Bronchitis, Adult (DC), Constipation, Adult (DC) Additional Instructions: Drink plenty of liquids/take meds as prescribed/follow up with your doctor this week Prescriptions: Polyethylene Glycol 3350 [Miralax] 17 gm PO DAILY PRN #1 bottle PRN Reason: Constipation Benzonatate [Tessalon Perles] 100 mg PO TID PRN #21 sgl PRN Reason: Cough Azithromycin [Zithromax] 250 mg PO DAILY #6 tab Referrals: Aleks Pizano MD [Primary Care Provider] - Follow up with primary Forms: [employer] (Lithuanian)
[2018-08-27] MEDS ORDERED: Iohexol 350 MG/100 ML VIAL ONE (00:17)
[2018-08-27 00:57] LABS: PH,URINE 6.5 (4.7-8.0); URINE BILIRUBIN NEGATIVE (NEGATIVE); URINE BLOOD TRACE-INTACT (NEGATIVE); URINE GLUCOSE (UA) 500 mg/dL (NEGATIVE); URINE LEUKOCYTE ESTERASE NEGATIVE Leu/uL (NEGATIVE); URINE PROTEIN 100 mg/dL (<30 mg/dL); URINE UROBILINOGEN 0.2 E.U./dL (<1 E.U./dL)
[2018-08-27 01:00] LABS: URINE APPEARANCE SL CLOUDY (CLEAR); URINE COLOR YELLOW (YELLOW)
[2018-08-27 01:05] LABS: URINE AMORPHOUS SEDIMENT FEW /hpf; URINE EPITHELIAL CELLS 0 - 2 /hpf (0-5); URINE RBC 0 - 2 /hpf (0-2); URINE WBC 0 - 2 /hpf (0-6)
[2018-08-27 01:06] LABS: URINE BACTERIA OCC /hpf
[2018-08-27] MEDS ORDERED: POLYETHYLENE GLYCOL 3350 17 GM/Dose PACKET PO STA (02:20)
[2018-08-27] MEDS ORDERED: Magnesium Citrate Oral SOL (300 ml) PO ONE (02:20)
[2018-08-27 02:32] VITALS: BP 120/78; PULSE 68; RESP 16; O2SAT 100
--- NOTE | 2018-08-27 09:55 | RAD ---
Date of service: 08/26/2018 HISTORY: Cough. COMPARISON: Comparison chest 08/07/2018. FINDINGS: LUNGS: The interstitial markings are increased and coarsened; rule out sequela of COPD or viral illness.. PLEURA: No significant pleural effusion identified, no pneumothorax apparent. CARDIOVASCULAR: Mild aortic atherosclerotic calcification present. Normal cardiac size. No pulmonary vascular congestion. OSSEOUS STRUCTURES: No significant abnormalities. VISUALIZED UPPER ABDOMEN: Normal. OTHER FINDINGS: None. IMPRESSION: The interstitial markings are increased and coarsened; rule out sequela of COPD or viral illness..
--- NOTE | 2018-08-27 10:27 | CT ---
Date of service: 08/27/2018 PROCEDURE: CT Abdomen and Pelvis with contrast HISTORY: pain, constipation COMPARISON: None. TECHNIQUE: Contrast dose: Radiation dose: Total exam DLP = 349.35 mGy-cm. This CT exam was performed using one or more of the following dose reduction techniques: Automated exposure control, adjustment of the mA and/or kV according to patient size, and/or use of iterative reconstruction technique. FINDINGS: LOWER THORAX: Unremarkable. LIVER: Unremarkable. No gross lesion or ductal dilatation. GALLBLADDER AND BILE DUCTS: Unremarkable. PANCREAS: Unremarkable. No gross lesion or ductal dilatation. SPLEEN: Unremarkable. ADRENALS: Unremarkable. No mass. KIDNEYS AND URETERS: Unremarkable. No hydronephrosis. No solid mass. VASCULATURE: Unremarkable. No aortic aneurysm. No aortic atherosclerotic calcification or mural plaque present. BOWEL: Unremarkable. No obstruction. No gross mural thickening. APPENDIX: Normal appendix. PERITONEUM: Unremarkable. No free fluid. No free air. LYMPH NODES: Unremarkable. No enlarged lymph nodes. BLADDER: Unremarkable. REPRODUCTIVE: Unremarkable. BONES: No acute fracture. OTHER FINDINGS: None. IMPRESSION: Unremarkable contrast enhanced CT of the abdomen and pelvis.
== END 2018-08-27 02:30 | disposition home or self-care (01) ==
LOC: ED 20:24
DX: K59.00 Constipation, unspecified (principal); J40 Bronchitis, not specified as acute or chronic; I10 Essential (primary) hypertension; E11.9 Type 2 diabetes mellitus without complications; I25.10 Atherosclerotic heart disease of native coronary artery without angina pectoris; J44.9 Chronic obstructive pulmonary disease, unspecified; Z86.73 Personal history of transient ischemic attack (TIA), and cerebral infarction without residual deficits; Z87.891 Personal history of nicotine dependence
CPT/HCPCS: 71045; 74177; 80053; 81001; 82948; 83690; 85025; 87086; 96361; 96374; 99284; J1885; J7030; Q9967

== ENCOUNTER 2018-08-27 15:14 | Inpatient (IN) | payer MEDICARE, OTHER | END 2018-08-30 15:18 | disposition home or self-care (01) | LOC: ED 15:14 → ERH 17:28 → 3RSO 20:42 ==

== ENCOUNTER 2018-09-24 09:16 | Outpatient (CLI) | payer MEDICARE, OTHER | END 2018-09-24 09:17 | disposition home or self-care (01) | LOC: LAB 09:16 ==

== ENCOUNTER 2018-10-04 07:04 | Inpatient (IN) | payer MEDICARE, OTHER ==
[2018-10-04 07:05] VITALS: BMI 26.4
--- NOTE | 2018-10-04 07:47 | ED PDOC ---
Arrival/HPI - General Chief Complaint: Abdominal Pain Time Seen by Provider: 10/04/18 07:30 Historian: Patient - History of Present Illness Narrative History of Present Illness (Text): 10/04/18 07:30 Erasmo Noel is a 68 year old male, with a past medical history of COPD, CAD, hypertension, and diabetes, who presents to the emergency department for evaluation of left lower quadrant abdominal pain worsening since 2 weeks. Patie nt informs pain is constant and began 6 months ago. Patient denies complications from left inguinal hernia repair from 20 years ago. Patient also notes diarrhea 4 days ago. Patient informs of nonbloody nonbilious vomiting 2 weeks ago. Patient's last bowel movement was normal this morning. Patient informs taking pain medications prescribed by PMD with no improvement. Patient denies fevers, chills, headache, dizziness, vision changes, nausea, vomiting, hematochezia, dysuria, hematuria, urinary frequency changes, back pain, neck pain, chest pain, shortness of breath, or any other complaints. Time/Duration: > week (2 weeks) Symptom Onset: Gradual Symptom Course: Worsening Activities at Onset: Light Context: Home Past Medical History - Provider Review Nursing Documentation Reviewed: Yes - Infectious Disease Hx of Infectious Diseases: None - Tetanus Immunization Tetanus Immunization: Unknown - Cardiac Hx Hypertension: Yes - Pulmonary Hx Asthma: Yes Hx Chronic Obstructive Pulmonary Disease (COPD): Yes - Neurological HX Cerebrovascular Accident: Yes - HEENT Hx Deafness: Yes ([place]) - Renal Hx Renal Disorder: No - Endocrine/Metabolic Hx Diabetes Mellitus Type 1: Yes - Hematological/Oncological Hx Blood Transfusions: No Hx Blood Transfusion Reaction: No - Musculoskeletal/Rheumatological Hx Falls: Yes Hx Unsteady Gait: Yes (CANE) - Gastrointestinal Hx Gastroesophageal Reflux: Yes - Genitourinary/Gynecological Hx Genitourinary Disorders: Yes (retention voids small amts) - Psychiatric Hx Anxiety: Yes Hx Depression: Yes Hx Substance Use: No - Surgical History Hx Cardiac Catheterization: Yes Hx Orthopedic Surgery: Yes (left hip) - Anesthesia Hx Anesthesia Reactions: Yes (THRASHING ABOUT) Hx Malignant Hyperthermia: No - Suicidal Assessment Feels Threatened In Home Enviroment: No Family/Social History - Physician Review Nursing Documentation Reviewed: Yes Family/Social History: No Known Family HX Smoking Status: Former Smoker Hx Alcohol Use: No Hx Substance Use: No Hx Substance Use Treatment: Yes Allergies/Home Meds Allergies/Adverse Reactions: Allergies No Known Allergies Allergy (Verified 10/04/18 11:49) Home Medications: Home Meds Medication Instructions Recorded Confirmed SITagliptin [Januvia] 100 mg PO DAILY 11/19/15 10/09/18 Atorvastatin [Lipitor] 20 mg PO DIN 02/03/16 10/09/18 Aspirin [Adult Low Dose Aspirin EC] 81 mg PO DAILY 02/05/16 10/09/18 Clopidogrel [Plavix] 75 mg PO DAILY 10/09/18 10/09/18 Docusate [Colace] 100 mg PO DAILY 10/09/18 10/09/18 GlipiZIDE [Glipizide] 10 mg PO DAILY 10/09/18 10/09/18 Insulin Detemir [Levemir] 20 unit SC ACBHS PRN 10/09/18 10/09/18 Ipratropium 0.02% [Atrovent] 0.5 mg IH TID PRN 10/09/18 10/09/18 Multivitamin [Daily Multiple 1 tab PO DAILY 10/09/18 10/09/18 Vitamin] Oxycodone HCl/Acetaminophen 1 tab PO PRN PRN 10/09/18 10/09/18 [Percocet 10-325 mg Tablet] Review of Systems - Physician Review All systems were reviewed & negative as marked: Yes - Review of Systems Constitutional: absent: Fevers, Other (chills) Eyes: absent: Vision Changes Respiratory: absent: SOB Cardiovascular: absent: Chest Pain Gastrointestinal: Abdominal Pain (left lower quadrant abdominal pain), Diarrhea (4 days ago), Vomiting (vomiting nonbloody nonbilious 2 weeks ago). absent: Nausea, Hematochezia Genitourinary Male: absent: Dysuria, Frequency (urinary frequency changes), Hematuria Musculoskeletal: absent: Back Pain, Neck Pain Neurological: absent: Headache, Dizziness Physical Exam Vital Signs Reviewed: Yes Vital Signs Temp Pulse Resp BP Pulse Ox 10/04/18 07:10 97.9 F 82 16 114/71 114 H Temperature: Afebrile Blood Pressure: Normal Pulse: Regular Respiratory Rate: Normal Appearance: Positive for: Well-Appearing, Non-Toxic, Comfortable Pain Distress: None Mental Status: Positive for: Alert and Oriented X 3 - Systems Exam Head: Present: Atraumatic, Normocephalic Pupils: Present: PERRL Extroacular Muscles: Present: EOMI Conjunctiva: Present: Normal Mouth: Present: Dry Neck: Present: Normal Range of Motion Respiratory/Chest: Present: Clear to Auscultation, Good Air Exchange. No: Respiratory Distress, Accessory Muscle Use Cardiovascular: Present: Regular Rate and Rhythm, Normal S1, S2. No: Murmurs, Rub, Gallop Abdomen: Present: Tenderness (left lower quadrant), Normal Bowel Sounds. No: Distention, Peritoneal Signs, Rebound, Guarding Back: Present: Normal Inspection. No: CVA Tenderness Upper Extremity: Present: Normal Inspection, Normal ROM, NORMAL PULSES, Neurovascularly Intact, Capillary Refill < 2s. No: Cyanosis, Edema Lower Extremity: Present: Normal Inspection, NORMAL PULSES, Normal ROM, Neurovascularly Intact, Capillary Refill < 2 s. No: Edema Neurological: Present: GCS=15, CN II-XII Intact, Speech Normal Skin: Present: Warm, Dry, Normal Color. No: Rashes Psychiatric: Present: Alert, Oriented x 3, Normal Insight, Normal Concentration Medical Decision Making ED Course and Treatment: 10/04/18 07:30 Impression: Patient is a 68 year old male with a past medical history of COPD, hypertension, and diabetes, who presents to the emergency department complaining of left sided abdominal pain since 2 weeks. Patient informs pain is constant. Patient notes diarrhea 4 days ago. Last bowel movement was today. Denies F/C/N/V/D, dysuria, hematuria, urinary frequency changes, dark or bloody stool. On exam; abdomen soft w/ LLQ tenderness. Dry mucous membranes. No CVA tenderness. Otherwise unremarkable. Plan: -- CT AP w/ IV Contrast -- Labs -- Urinalysis -- IV Fluids -- Reassess and disposition Prior Visits: Notes and results from previous visits were reviewed. Progress Notes: 10/04/18 09:53 Patient presents to ED sent by Dr. Peres who is concerned for left inguinal hernia incarceration 10/04/18 10:06 Spoke to nursing surgical services director who states Dr. Peres requests patient admission to med/surg and stat cardiac consult to Dr. Jay for potential pre-op. 10/04/18 10:[address] Jay, waiting for callback. 10/04/18 10:19 CT Abdomen/Pelvis w/ IV Contrast shows: IMPRESSION: There is thickening of the bladder wall which could be secondary to cystitis or bladder outlet obstruction There is no acute intra-abdominal findings 10/04/18 10:21 Discussed case w/ Dr. Jay, who is aware of patient. 10/04/18 10:39 Reviewed EKG, shows: NSR at [address] Elevations or Depressions. - Scribe Statement The provider has reviewed the documentation as recorded by the Scribe José Luis Paul All medical record entries made by the Scribe were at my direction and personally dictated by me. I have reviewed the chart and agree that the record accurately reflects my personal performance of the history, physical exam, medical decision making, and the department course for this patient. I have also personally directed, reviewed, and agree with the discharge instructions and disposition. Disposition/Present on Arrival - Present on Arrival Any Indicators Present on Arrival: No History of DVT/PE: No History of Uncontrolled Diabetes: No Urinary Catheter: No History of Decub. Ulcer: No History Surgical Site Infection Following: None - Disposition Have Diagnosis and Disposition been Completed?: Yes Diagnosis: Abdominal pain Disposition: HOSPITALIZED Disposition Time: 10:10 Patient Plan: Admission Condition: STABLE
[2018-10-04] MEDS ORDERED: Sodium Chloride 0.9% 1,000 ML IV STA (08:01)
[2018-10-04] MEDS ORDERED: Iohexol 350 MG/100 ML VIAL ONE (08:13)
[2018-10-04 08:23] LABS: BASO # 0.07 K/mm3 (0.0-2.0); BASO % 0.6 % (0.0-3.0); EOS # 0.6 (0.0-0.7); EOS % 4.9 % (1.5-5.0); HEMOGLOBIN 15.9 g/dL (14.0-18.0); LYMPH # 2.7 (1.2-3.4); LYMPH % 24.1 % (22.0-35.0); MEAN CELL VOLUME 92.8 fl (80.0-105.0); MEAN CORPUSCULAR HEMOGLOBIN 31.7 pg (25.0-35.0); MEAN CORPUSCULAR HGB CONC 34.2 g/dl (31.0-37.0); MEAN PLATELET VOLUME 9.6 fl (7.0-11.0); MONO % 8.9 % (1.0-6.0); RBC 5.01 10^6/uL (3.5-6.1); RED CELL DISTRIBUTION WIDTH 13.2 % (11.5-14.5); WHITE BLOOD COUNT 11.2 10^3/uL (4.5-11.0)
[2018-10-04 08:31] LABS: INR 1.09; PARTIAL THROMBOPLASTIN TIME 30.8 Seconds (26.9-38.3); PROTHROMBIN TIME 12.3 SECONDS (9.4-12.5)
[2018-10-04 09:11] LABS: ALB/GLOB RATIO 1.6 (1.1-1.8); ALBUMIN 4.2 g/dL (3.0-4.8); ALT/SGPT 45 U/L (7-56); AST/SGOT 34 U/L (17-59); BLOOD UREA NITROGEN 14 mg/dL (7-21); CALCIUM 9.3 mg/dL (8.4-10.5); GFR NON-AFRICAN AMERICAN > 60; LIPASE 22 U/L (23-300)
--- NOTE | 2018-10-04 09:31 | CP.PCM.CON ---
History of Present Illness - History of Present Illness History of Present Illness: General Surgery Consult Note for Dr. Larisa Wakefield, PGY1 This is a 68 year old male with PMH of DM, CAD, anxiety, active smoker, COPD, HLD and HTN presenting to the hospital for 6 month history of LLQ pain which worsened over the last two weeks. LLQ pain is dull, intermittent, rated 8/10 at worst, worse with positional movement and denies any exacerbating symptoms. He states he vomited NBNB two weeks ago, a non bloody diarrhea episode 4 days ago and had a normal BM this morning. He states he has had no complications with his left inguinal hernia repair done approximately 20 years ago. He currently denies fevers, chills, headaches, diarrhea, constipation, urinary complaints, bloody stool, dark stool, numbness, tingling, swelling, recent travel, recent sickness, nausea, vomiting, and recent lifestyle change. 12 point ROS noted here, otherwise unremarkable. Patient was admitted to the hospital one month ago on 08/29/18 for similar complaints of LLQ tenderness and constipation. Colonoscopy on 08/31/18 showed div erticulosis, internal hemorrhoids, redundant colon and as single nonbleeding colonic angiodysplastic lesion. He was discharged home on vantin for UTI infection. PMD: Dr. Pizano PMH: DM, CAD, anxiety, active smoker, COPD, HLD and HTN SH: left shoulder surgery, left inguinal repair 20 years ago Social: active smoker 10 ciggs/day, denies drugh and alcohol use All: NKDA FH: denies Past Patient History - Infectious Disease Hx of Infectious Diseases: None - Tetanus Immunizations Tetanus Immunization: Unknown - Past Social History Smoking Status: Heavy Smoker > 10 Cigarettes Daily - CARDIAC Hx Hypertension: Yes - PULMONARY Hx Asthma: Yes Hx Chronic Obstructive Pulmonary Disease (COPD): Yes - NEUROLOGICAL HX Cerebrovascular Accident: Yes - HEENT Hx Deafness: Yes ([place]) - RENAL Hx Chronic Kidney Disease: No - ENDOCRINE/METABOLIC Hx Diabetes Mellitus Type 1: Yes - HEMATOLOGICAL/ONCOLOGICAL Hx Blood Transfusions: No Hx Blood Transfusion Reaction: No - MUSCULOSKELETAL/RHEUMATOLOGICAL Hx Falls: Yes Hx Unsteady Gait: Yes (CANE) - GASTROINTESTINAL Hx Gastroesophageal Reflux: Yes - GENITOURINARY/GYNECOLOGICAL Hx Genitourinary Disorders: Yes (retention voids small amts) - PSYCHIATRIC Hx Anxiety: Yes Hx Depression: Yes Hx Substance Use: No - SURGICAL HISTORY Hx Cardiac Catheterization: Yes Hx Orthopedic Surgery: Yes (left hip) - ANESTHESIA Hx Anesthesia Reactions: Yes (THRASHING ABOUT) Hx Malignant Hyperthermia: No Meds Allergies/Adverse Reactions: Allergies Allergy/AdvReac Type Severity Reaction Status Date / Time No Known Allergies Allergy Verified 10/04/18 07:05 - Medications Medications: Current Medications Sodium Chloride (Sodium Chloride 0.9%) 1,000 mls @ 100 mls/hr IV .Q10H STA Stop: 10/04/18 18:00 Last Admin: 10/04/18 08:15 Dose: 100 mls/hr Physical Exam - Constitutional Appears: No Acute Distress - Head Exam Head Exam: ATRAUMATIC, NORMAL INSPECTION - Eye Exam Eye Exam: EOMI Pupil Exam: PERRL - ENT Exam ENT Exam: Mucous Membranes Moist - Respiratory Exam Respiratory Exam: Clear to Auscultation Bilateral. absent: Accessory Muscle Use, Wheezes, Respiratory Distress - Cardiovascular Exam Cardiovascular Exam: +S1, +S2. absent: Tachycardia - GI/Abdominal Exam GI & Abdominal Exam: Normal Bowel Sounds, Soft. absent: Firm, Guarding, Hernia, Rebound, Rigid Additional comments: LLQ tenderness appreciated with deep palpation. - Extremities Exam Extremities exam: Positive for: normal inspection, pedal pulses present. Negative for: calf tenderness, tenderness - Back Exam Back exam: NORMAL INSPECTION - Neurological Exam Neurological exam: Alert, CN II-XII Intact, Oriented x3 - Skin Skin Exam: Normal Color, Warm Results - Vital Signs Recent Vital Signs: Last Vital Signs Temp 97.9 F 10/04/18 07:10 Pulse 82 10/04/18 07:10 Resp 16 10/04/18 07:10 BP 114/71 10/04/18 07:10 Pulse Ox 96 10/04/18 07:54 - Labs Result Diagrams: 10/04/18 08:09 10/04/18 08:39 Labs: Laboratory Results - last 24 hr 10/04/18 10/04/18 10/04/18 08:09 08:09 08:39 WBC 11.2 H D RBC 5.01 Hgb 15.9 Hct 46.5 MCV 92.8 MCH 31.7 MCHC 34.2 RDW 13.2 Plt Count 275 MPV 9.6 Neut % (Auto) 61.5 Lymph % (Auto) 24.1 [place] % (Auto) 8.9 H Eos % (Auto) 4.9 Baso % (Auto) 0.6 Lymph # (Auto) 2.7 [place] # (Auto) 1.0 H Eos # (Auto) 0.6 Baso # (Auto) 0.07 Absolute Neuts (auto) 6.89 H PT 12.3 INR 1.09 APTT 30.8 Sodium 139 Potassium 4.0 Chloride 103 Carbon Dioxide 29 Anion Gap 12 BUN 14 Creatinine 0.8 Est GFR ( Amer) > 60 Est GFR (Non-Af Amer) > 60 Random Glucose 230 H Calcium 9.3 Magnesium 2.0 Total Bilirubin 0.8 AST 34 ALT 45 Alkaline Phosphatase 99 Total Protein 6.9 Albumin 4.2 Globulin 2.6 Albumin/Globulin Ratio 1.6 Lipase 22 L Alcohol, Quantitative 10/04/18 08:39 WBC RBC Hgb Hct MCV MCH MCHC RDW Plt Count MPV Neut % (Auto) Lymph % (Auto) [place] % (Auto) Eos % (Auto) Baso % (Auto) Lymph # (Auto) [place] # (Auto) Eos # (Auto) Baso # (Auto) Absolute Neuts (auto) PT INR APTT Sodium Potassium Chloride Carbon Dioxide Anion Gap BUN Creatinine Est GFR ( Amer) Est GFR (Non-Af Amer) Random Glucose Calcium Magnesium Total Bilirubin AST ALT Alkaline Phosphatase Total Protein Albumin Globulin Albumin/Globulin Ratio Lipase Alcohol, Quantitative < 10 Assessment & Plan - Assessment and Plan (Free Text) Assessment: This is a 68 year old male with PMH significant for left inguinal hernia repair 20 years ago presenting to the hospital for LLQ pain concerning for left inguinal hernia incarceration. Plan: NPO pain control IVF plan for OR today tentatively CTAP pending Further recommendations per Dr. Peres
[2018-10-04 09:59] LABS: PH,URINE 6.5 (4.7-8.0); URINE BILIRUBIN NEGATIVE (NEGATIVE); URINE BLOOD NEGATIVE (NEGATIVE); URINE GLUCOSE (UA) >=1000 mg/dL (NEGATIVE); URINE LEUKOCYTE ESTERASE NEGATIVE Leu/uL (NEGATIVE); URINE PROTEIN NEGATIVE mg/dL (<30 mg/dL); URINE UROBILINOGEN 0.2 E.U./dL (<1 E.U./dL)
[2018-10-04 10:00] LABS: URINE APPEARANCE CLEAR (CLEAR); URINE COLOR YELLOW (YELLOW)
--- NOTE | 2018-10-04 10:03 | CP.PCM.HP ---
History of Present Illness - History of Present Illness History of Present Illness: General Surgery H&P for Dr. Larisa Wakefield, PGY1 This is a 68 year old male with PMH of DM, CAD, anxiety, active smoker, COPD, HLD and HTN presenting to the hospital for 6 month history of LLQ pain which worsened over the last two weeks. LLQ pain is dull, intermittent, rated 8/10 at worst, worse with positional movement and denies any exacerbating symptoms. He states he vomited NBNB two weeks ago, a non bloody diarrhea episode 4 days ago and had a normal BM this morning. He states he has had no complications with his left inguinal hernia repair done approximately 20 years ago. He states his last meal was last night. He currently denies fevers, chills, headaches, diarrhea, constipation, urinary complaints, bloody stool, dark stool, numbness, tingling, swelling, recent travel, recent sickness, nausea, vomiting, and recent lifestyle change. 12 point ROS noted here, otherwise unremarkable. Patient was admitted to the hospital one month ago on 08/29/18 for similar complaints of LLQ tenderness and constipation. Colonoscopy on 08/31/18 showed diverticulosis, internal hemorrhoids, redundant colon and as single nonbleeding colonic angiodysplastic lesion. He was discharged home on vantin for UTI infection. PMD: Dr. Pizano PMH: DM, CAD, anxiety, active smoker, COPD, HLD and HTN SH: left shoulder surgery, left inguinal repair 20 years ago Social: active smoker 10 ciggs/day, denies drugh and alcohol use All: NKDA FH: denies Present on Admission - Present on Admission Any Indicators Present on Admission: No Past Patient History - Infectious Disease Hx of Infectious Diseases: None - Tetanus Immunizations Tetanus Immunization: Unknown - Past Social History Smoking Status: Heavy Smoker > 10 Cigarettes Daily - CARDIAC Hx Hypertension: Yes - PULMONARY Hx Asthma: Yes Hx Chronic Obstructive Pulmonary Disease (COPD): Yes - NEUROLOGICAL HX Cerebrovascular Accident: Yes - HEENT Hx Deafness: Yes ([place]) - RENAL Hx Chronic Kidney Disease: No - ENDOCRINE/METABOLIC Hx Diabetes Mellitus Type 1: Yes - HEMATOLOGICAL/ONCOLOGICAL Hx Blood Transfusions: No Hx Blood Transfusion Reaction: No - MUSCULOSKELETAL/RHEUMATOLOGICAL Hx Falls: Yes Hx Unsteady Gait: Yes (CANE) - GASTROINTESTINAL Hx Gastroesophageal Reflux: Yes - GENITOURINARY/GYNECOLOGICAL Hx Genitourinary Disorders: Yes (retention voids small amts) - PSYCHIATRIC Hx Anxiety: Yes Hx Depression: Yes Hx Substance Use: No - SURGICAL HISTORY Hx Cardiac Catheterization: Yes Hx Orthopedic Surgery: Yes (left hip) - ANESTHESIA Hx Anesthesia Reactions: Yes (THRASHING ABOUT) Hx Malignant Hyperthermia: No Meds Allergies/Adverse Reactions: Allergies Allergy/AdvReac Type Severity Reaction Status Date / Time No Known Allergies Allergy Verified 10/04/18 11:49 Results - Vital Signs Recent Vital Signs: Last Vital Signs Temp 97.9 F 10/04/18 07:10 Pulse 86 10/04/18 09:57 Resp 18 10/04/18 09:57 BP 147/61 10/04/18 09:57 Pulse Ox 97 10/04/18 09:57 Physical Exam - Constitutional Appears: No Acute Distress - Head Exam Head Exam: ATRAUMATIC, NORMAL INSPECTION - Eye Exam Eye Exam: EOMI Pupil Exam: PERRL - ENT Exam ENT Exam: Mucous Membranes Moist - Respiratory Exam Respiratory Exam: Clear to Auscultation Bilateral. absent: Accessory Muscle Use, Wheezes, Respiratory Distress - Cardiovascular Exam Cardiovascular Exam: +S1, +S2. absent: Tachycardia - GI/Abdominal Exam GI & Abdominal Exam: Normal Bowel Sounds, Soft. absent: Firm, Guarding, Hernia, Rebound, Rigid Additional comments: LLQ tenderness appreciated with deep palpation. - Extremities Exam Extremities exam: Positive for: normal inspection, pedal pulses present. Negative for: calf tenderness, tenderness - Back Exam Back exam: NORMAL INSPECTION - Neurological Exam Neurological exam: Alert, CN II-XII Intact, Oriented x3 - Skin Skin Exam: Normal Color, Warm - Labs Result Diagrams: 10/04/18 08:09 10/04/18 08:39 Labs: Laboratory Results - last 24 hr 10/04/18 10/04/18 10/04/18 08:09 08:09 08:39 WBC 11.2 H D RBC 5.01 Hgb 15.9 Hct 46.5 MCV 92.8 MCH 31.7 MCHC 34.2 RDW 13.2 Plt Count 275 MPV 9.6 Neut % (Auto) 61.5 Lymph % (Auto) 24.1 [place] % (Auto) 8.9 H Eos % (Auto) 4.9 Baso % (Auto) 0.6 Lymph # (Auto) 2.7 [place] # (Auto) 1.0 H Eos # (Auto) 0.6 Baso # (Auto) 0.07 Absolute Neuts (auto) 6.89 H PT 12.3 INR 1.09 APTT 30.8 Sodium 139 Potassium 4.0 Chloride 103 Carbon Dioxide 29 Anion Gap 12 BUN 14 Creatinine 0.8 Est GFR ( Amer) > 60 Est GFR (Non-Af Amer) > 60 Random Glucose 230 H Calcium 9.3 Magnesium 2.0 Total Bilirubin 0.8 AST 34 ALT 45 Alkaline Phosphatase 99 Total Protein 6.9 Albumin 4.2 Globulin 2.6 Albumin/Globulin Ratio 1.6 Lipase 22 L Urine Color Urine Appearance Urine pH Ur Specific [place] Urine Protein Urine Glucose (UA) Urine Ketones Urine Blood Urine Nitrate Urine Bilirubin Urine Urobilinogen Ur Leukocyte Esterase Alcohol, Quantitative 10/04/18 10/04/18 08:39 09:40 WBC RBC Hgb Hct MCV MCH MCHC RDW Plt Count MPV Neut % (Auto) Lymph % (Auto) [place] % (Auto) Eos % (Auto) Baso % (Auto) Lymph # (Auto) [place] # (Auto) Eos # (Auto) Baso # (Auto) Absolute Neuts (auto) PT INR APTT Sodium Potassium Chloride Carbon Dioxide Anion Gap BUN Creatinine Est GFR ( Amer) Est GFR (Non-Af Amer) Random Glucose Calcium Magnesium Total Bilirubin AST ALT Alkaline Phosphatase Total Protein Albumin Globulin Albumin/Globulin Ratio Lipase Urine Color Yellow Urine Appearance Clear Urine pH 6.5 Ur Specific [place] 1.015 Urine Protein Negative Urine Glucose (UA) >=1000 Urine Ketones Negative Urine Blood Negative Urine Nitrate Negative Urine Bilirubin Negative Urine Urobilinogen 0.2 Ur Leukocyte Esterase Negative Alcohol, Quantitative < 10 Assessment & Plan - Assessment and Plan (Free Text) Assessment: This is a 68 year old male with PMH significant for left inguinal hernia repair 20 years ago presenting to the hospital for LLQ pain concerning for left inguinal hernia incarceration. Plan: HHD pain control CTAP pending Cardiology on consult for cardiac risk stratification Will postpone OR until after cardiac cath Further recommendations per Dr. Peres
--- NOTE | 2018-10-04 10:23 | CT ---
Date of service: 10/04/2018 PROCEDURE: CT Abdomen and Pelvis with contrast HISTORY: LLQ pain COMPARISON: 08/27/2018 TECHNIQUE: Contrast dose: 100 cc of Omni 350 Radiation dose: Total exam DLP = 304.11 mGy-cm. This CT exam was performed using one or more of the following dose reduction techniques: Automated exposure control, adjustment of the mA and/or kV according to patient size, and/or use of iterative reconstruction technique. FINDINGS: LOWER THORAX: Unremarkable. LIVER: Unremarkable. No gross lesion or ductal dilatation. GALLBLADDER AND BILE DUCTS: Unremarkable. PANCREAS: Unremarkable. No gross lesion or ductal dilatation. SPLEEN: Unremarkable. ADRENALS: Unremarkable. No mass. KIDNEYS AND URETERS: Unremarkable. No hydronephrosis. No solid mass. VASCULATURE: Unremarkable. No aortic aneurysm. No aortic atherosclerotic calcification or mural plaque present. BOWEL: Unremarkable. No obstruction. No gross mural thickening. APPENDIX: Normal appendix. PERITONEUM: Unremarkable. No free fluid. No free air. LYMPH NODES: Unremarkable. No enlarged lymph nodes. BLADDER: There is thickening of the bladder wall which could be secondary to cystitis or bladder outlet obstruction REPRODUCTIVE: Unremarkable. BONES: No acute fracture. OTHER FINDINGS: The report concurs with the preliminary [facility] report IMPRESSION: There is thickening of the bladder wall which could be secondary to cystitis or bladder outlet obstruction There is no acute intra-abdominal findings
[2018-10-04 10:24] LABS: OPIATES, UR NEGATIVE (NEGATIVE)
[2018-10-04 10:30] LABS: BARBITURATES, UR NEGATIVE (NEGATIVE); BENZODIAZEPINES, UR NEGATIVE (NEGATIVE); PHENCYCLIDINE, UR NEGATIVE (NEGATIVE)
[2018-10-04] MEDS: Insulin Reg-MEDIUM-Coverage SC SCH ×3 (11:06→22:26)
[2018-10-04] MEDS: Fluticasone Nasal 50 mcg/Spray NS SCH (12:16)
--- NOTE | 2018-10-04 13:53 | CP.PCM.PCO ---
Physician Communication Note - Physician Communication Note Physician Communication Note: Pt seen by cardiology- needs cardiac cath. Will postpone OR
[2018-10-04] MEDS ORDERED: Albuterol 0.083% Inhal Sol (2.5 mg/3 mL) UD IH SCH (14:00)
[2018-10-04] MEDS ORDERED: Pneumococcal 23-Valent Vaccine IM ONE (15:46)
--- NOTE | 2018-10-04 19:09 | CARD ---
APPROVED REPORT Date of service: 10/04/2018 EKG Measurement Heart [id number] <Conclusion> Normal sinus rhythm Rightward axis Borderline ECG
--- NOTE | 2018-10-04 20:36 | CON ---
DATE OF CONSULTATION: 10/04/2018 CARDIOLOGY CONSULTATION HISTORY: The patient is a 68-year-old male, who presents with a hernia. I was asked to see him for preop clearance. The patient's past medical history includes diabetes mellitus, hypertension, and hypercholesterolemia with documented multiple nonobstructive and 50% lesion in its coronary tree documented by cardiac catheterization in 2014. The patient has been lost to followup. He does take Lipitor for his hypercholesterolemia as well as insulin for his diabetes mellitus and is on aspirin. In addition, the patient is on chronic steroids for his dyspnea and bronchospasm. SOCIAL HISTORY: The patient denies smoking. REVIEW OF SYSTEMS: The patient does have intermittent chest pain chronically as well as chronic dyspnea. No edema noted. PHYSICAL EXAMINATION: VITAL SIGNS: Blood pressure is 135/86, the heart rate is in the 80s. NECK: Negative JVD. LUNGS: Bilateral wheezing. HEART: Reveals S1, S2. EXTREMITIES: Without edema. LABORATORY DATA: Reveals EKG that is normal sinus rhythm with no acute changes. Glucose is 230, hemoglobin is 15.9. IMPRESSION: 1. Intermittent chest pain. 2. No evidence for acute coronary syndrome. 3. Diabetes mellitus. 4. Hypertension. 5. Hypercholesterolemia. 6. Chronic obstructive pulmonary disease. 7. Bronchospasm. 8. Documented coronary artery disease. 9. Hernia. PLAN: Given these findings, the patient's cardiac status has not been well worked up other than an echocardiogram that reveals an EF that is normal in 08/2018. The patient would be at increased risk for anesthesia. Depending on the urgency, as determined by the surgeon for his surgery, his hernia should be treated conservatively if possible until his cardiac status can be completely worked up. Alber Jay MD
[2018-10-04] MEDS: Budesonide 0.5 mg/2 ml Inhal Susp UD IH SCH (20:43)
[2018-10-04] MEDS: Arformoterol 15 mcg/2 ml Inh Sol IH SCH ×2 (20:43)
[2018-10-04] MEDS: Insulin Detemir 100 units/ml Vial (Levemir) SC SCH (22:24)
[2018-10-04] MEDS: Oxycodone/Acetaminophen 5/325 mg Tab PO PRN (22:38)
[2018-10-04] MEDS: QUEtiapine 300 mg XR Tab PO PRN (22:39)
[2018-10-05] MEDS: Insulin Reg-MEDIUM-Coverage SC SCH ×4 (05:35→22:50)
[2018-10-05] MEDS: Levalbuterol 0.63 MG/3 ML Inhal Soln UD IH PRN (07:42)
[2018-10-05] MEDS: Ipratropium 0.02% Inhal Soln (0.5 mg/2.5 ml) UD IH SCH ×2 (07:42→13:26)
[2018-10-05] MEDS: Arformoterol 15 mcg/2 ml Inh Sol IH SCH (07:42)
[2018-10-05] MEDS: Budesonide 0.5 mg/2 ml Inhal Susp UD IH SCH ×2 (07:43→19:51)
--- NOTE | 2018-10-05 07:45 | CP.PCM.PN ---
Subjective - Date & Time of Evaluation Date of Evaluation: 10/05/18 Time of Evaluation: 06:55 - Subjective Subjective: General Surgery Progress Note for Dr. Larisa Wakefield, PGY1 Patient seen and examined at bedside this morning. No acute events reported overnight. Patient admits to 3 bowel movements since yesterday and endorses faltus. He denies nausea, vomiting, chest pain, and SOB. Objective - Vital Signs/Intake and Output Vital Signs (last 24 hours): Temp Pulse Resp BP Pulse Ox 98.2 F 75 18 145/80 95 10/04/18 22:18 10/04/18 22:18 10/04/18 22:18 10/04/18 22:18 10/04/18 22:18 Intake and Output: 10/05/18 10/05/18 06:59 18:59 Intake Total 660 Output Total 300 Balance 360 - Medications Medications: Current Medications Albuterol Sulfate (Albuterol 0.083% Inhal Yari (2.5 Mg/3 Ml) Ud) 2.5 mg IH [id number] [facility] Arformoterol Tartrate (Brovana) 15 mcg IH [id number] [facility] Last Admin: 10/04/18 20:43 Dose: Not Given Arformoterol Tartrate (Brovana) 15 mcg IH [id number] [facility] Last Admin: 10/04/18 20:43 Dose: 15 mcg Aspirin (Ecotrin) 81 mg PO DAILY [facility] Last Admin: 10/04/18 12:16 Dose: Not Given Atorvastatin Calcium (Lipitor) 20 mg PO DIN [facility] Last Admin: 10/04/18 17:25 Dose: 20 mg Budesonide (Pulmicort Respules) 0.5 mg IH [id number] [facility] Last Admin: 10/04/18 20:43 Dose: 0.5 mg Docusate Sodium (Colace) 100 mg PO BID [facility] Last Admin: 10/04/18 17:25 Dose: 100 mg Famotidine (Pepcid) 20 mg PO DAILY [facility] Fluticasone Propionate (Flonase) 1 actuation NS DAILY [facility] Insulin Detemir (Levemir) 8 unit SC HS [facility] Last Admin: 10/04/18 22:24 Dose: 8 units Insulin Detemir (Levemir) 7 unit SC DAILY [facility] Insulin Human Regular (Humulin R Med) 0 units SC Q6H [facility]; Protocol Last Admin: 10/05/18 05:35 Dose: 3 units Ipratropium [place] (Atrovent) 0.5 mg IH RTID [facility] Levalbuterol HCl (Xopenex) 0.63 mg IH [id number] PRN PRN Reason: Shortness of Breath Montelukast Sodium (Singulair) 10 mg PO DAILY [facility] Oxycodone/Acetaminophen (Percocet 5/325 Mg Tab) 1 tab PO Q6H PRN PRN Reason: Pain, moderate (4-7) Stop: 10/07/18 14:41 Last Admin: 10/04/18 22:38 Dose: 1 tab Quetiapine Fumarate (Seroquel Xr) 300 mg PO HS PRN; Protocol PRN Reason: Insomnia Last Admin: 10/04/18 22:39 Dose: 300 mg Senna/Docusate Sodium (Senokot S 50 Mg-8.6 Mg) 1 tab PO DAILY [facility] - Labs Labs: 10/04/18 08:09 10/04/18 08:39 PT 12.3 SECONDS (9.4-12.5) 10/04/18 08:09 INR 1.09 10/04/18 08:09 APTT 30.8 Seconds (26.9-38.3) 10/04/18 08:09 Physical Exam - Constitutional Appears: No Acute Distress - Head Exam Head Exam: ATRAUMATIC, NORMAL INSPECTION - Eye Exam Eye Exam: EOMI Pupil Exam: PERRL - ENT Exam ENT Exam: Mucous Membranes Moist - Respiratory Exam Respiratory Exam: Clear to Auscultation Bilateral. absent: Accessory Muscle Use, Wheezes, Respiratory Distress - Cardiovascular Exam Cardiovascular Exam: +S1, +S2. absent: Tachycardia - GI/Abdominal Exam GI & Abdominal Exam: Normal Bowel Sounds, Soft. absent: Firm, Guarding, Hernia, Rebound, Rigid Additional comments: Left sided pelvic tenderness noted with deep palpation - Extremities Exam Extremities exam: Positive for: normal inspection, pedal pulses present. Negative for: calf tenderness, tenderness - Back Exam Back exam: NORMAL INSPECTION - Neurological Exam Neurological exam: Alert, CN II-XII Intact, Oriented x3 - Skin Skin Exam: Normal Color, Warm Assessment and Plan - Assessment and Plan (Free Text) Assessment: This is a 68 year old male with PMH significant for left inguinal hernia repair 20 years ago presenting to the hospital for LLQ pain concerning for left inguinal hernia incarceration. Plan: CTAP reviewed, no acute intra-abdominal findings continue HHD continue pain control as needed Cardiology on consult for cardiac risk stratification Will postpone surgery until after cardiac cath, tentatively planned for Monday Further recommendations per Dr. Peres
[2018-10-05] MEDS: Insulin Detemir 100 units/ml Vial (Levemir) SC SCH ×2 (10:12→22:50)
[2018-10-05] MEDS: Docusate-Senna 50 mg-8.6 mg Tab PO SCH (10:13)
[2018-10-05] MEDS: Fluticasone Nasal 50 mcg/Spray NS SCH (10:14)
--- NOTE | 2018-10-05 11:47 | CP.PCM.PCO ---
Additional Comments - Additional Comments Additional Comments: Pt seen and examined at bedside. Still c/o L abdominal pain. No nausea or vomiting. OR for L inguinal hernia postponed until after c.cath. Pt is scheduled for poss cath on Monday. Will continue to follow.
--- NOTE | 2018-10-05 16:13 | PN ---
DATE: 10/05/2018 CARDIOLOGY FOLLOWUP SUBJECTIVE: The patient is without chest pain. His abdominal pain is better. He had a bowel movement. He is eating without issues. PHYSICAL EXAMINATION: VITAL SIGNS: Blood pressure 148/82, heart rate is in the 80s. NECK: Negative JVD. LUNGS: Without rales. HEART: S1, S2. EXTREMITIES: Without edema. LABORATORY DATA: Revealed a glucose of 227. IMPRESSION: 1. Hernia. 2. The emergency condition of a hernia is now considered nonemergent. 3. Intermittent chest pain. 4. Diabetes mellitus. 5. High probability of coronary artery disease. 6. Hypertension. 7. Chronic obstructive pulmonary disease. PLAN: Given these findings, discussed with the patient. The patient is agreeable for cardiac catheterization. We will schedule for Monday. Alber Jay MD
[2018-10-05] MEDS: Oxycodone/Acetaminophen 5/325 mg Tab PO PRN (22:49)
[2018-10-05] MEDS: QUEtiapine 300 mg XR Tab PO PRN (22:49)
--- NOTE | 2018-10-06 01:58 | PN ---
DATE: 10/04/2018 SUBJECTIVE: The patient was initially admitted for intermittent chest pain. Dr. Alber Jay, Cardiology consult on the case. The patient right now seems comfortable. The patient has been complaining of intermittent chest pain and he does have a history of nonobstructive coronary artery disease. He is a heavy smoker. He does have evidence of carotid stenosis with his previous stroke and has been complaining of left lower quadrant pain for hernia problem. The pain is getting worse. The patient otherwise has no new complaints. No fever. No short of breath. No nausea. No vomiting. His blood sugar is stable. PHYSICAL EXAMINATION: VITAL SIGNS: On 10/04/2018; temperature 98, heart rate 86, blood pressure 147/61, respirations 18, and saturation 97%. HEAD AND NECK: Normal. No JVD. No thyromegaly. CHEST: Clear bilaterally. CARDIAC: First sound and second sound normal. No murmurs, rubs or gallops. ABDOMEN: Soft and nontender. There is mild tenderness in the left lower quadrant area. EXTREMITIES: No edema. NEUROLOGIC: Normal. LABORATORY DATA: On 10/04/2018; white count 11.2, hemoglobin 15.9, hematocrit 46.9, and platelets is 275. Chemistry; sodium 139, potassium 4, chloride 103, bicarb 29, BUN 14, creatinine 0.8, and blood sugar 230. Liver function test is normal. His urine is clean. His PT/PTT is normal. The patient had electrocardiogram that shows normal sinus rhythm, right axis deviations, and no ST-T elevation. The patient also had CT of abdomen and pelvis that showed there is no acute intraabdominal process. There is thickening of the bladder wall, which could be secondary to cystitis or bladder outlet obstructions. No abdominal aneurysm; otherwise, negative. IMPRESSION AND PLAN: 1. Acute intermittent chest pain. We will follow up with Dr. Alber Jay. The patient has troponin negative. Continue current medications. The patient is being scheduled for possible cardiac catheterization before inguinal hernia surgery. 2. Hypercholesterolemia, insulin-dependent diabetes. Continue Levemir plus insulin coverage. 3. Chronic obstructive pulmonary disease. Continue Brovana and Atrovent plus albuterol p.r.n. and Xopenex q.i.d., continue Singulair and Flonase. 4. Chronic back pain, continue Percocet p.r.n. 5. History of chronic constipation. Continue Senokot p.r.n. CURRENT MEDICATIONS: The patient is getting Seroquel 300 mg at bedtime, Singulair, Xopenex, Pulmicort, Percocet, Lipitor, Pepcid, Levemir 7 units in the morning and 8 units at night, and also getting Klonopin 0.5 mg at bedtime, Flonase, Colace, aspirin 81, Brovana, albuterol and Atrovent. Continue current therapy. Follow up clinically. Aleks Pizano MD
--- NOTE | 2018-10-06 01:59 | PN ---
DATE: 10/05/2018 SUBJECTIVE: The patient is clinically stable. No chest pain. No shortness of breath. No nausea, no vomiting. The patient has no other complaint. He did have intermittent chest pain that has been going on for the last few days, but currently, he has no chest pain. PHYSICAL EXAMINATION: VITAL SIGNS: Temperature is 98.2, heart rate is 78, blood pressure is 146/72, respirations 18, and saturation 97%. HEAD AND NECK: Normal. No JVD. No thyromegaly. CHEST: Clear bilaterally. CARDIAC: First sound and second sound normal. No murmur, rub, or gallop. ABDOMEN: Soft and nontender. EXTREMITIES: No edema. NEUROLOGIC: Normal. IMPRESSION AND PLAN: 1. Left inguinal hernia, stable. I plan to get surgery after cardiac catheterization. 2. History of intermittent chest pain. Right now, the patient is stable. No chest pain. Cardiology recommends cardiac catheterization. 3. Chronic obstructive pulmonary disease, stable. Continue inhaled bronchodilators and the patient is on Xopenex, albuterol, Pulmicort, Brovana. 4. Chronic anxiety. Continue Seroquel plus Klonopin. 5. Chronic back pain, chronic osteoarthritis. Continue Percocet p.r.n. 6. Diabetes. Continue insulin coverage. Follow up clinically, stable. Continue current therapy. 7. Continue gastrointestinal and deep venous thrombosis prophylaxis. Aleks Pizano MD
[2018-10-06] MEDS: Insulin Reg-MEDIUM-Coverage SC SCH ×4 (05:18→22:06)
[2018-10-06] MEDS: Levalbuterol 0.63 MG/3 ML Inhal Soln UD IH PRN ×3 (07:36→20:16)
[2018-10-06] MEDS: Arformoterol 15 mcg/2 ml Inh Sol IH SCH ×4 (07:36→20:15)
[2018-10-06] MEDS: Ipratropium 0.02% Inhal Soln (0.5 mg/2.5 ml) UD IH SCH ×2 (07:36→13:50)
[2018-10-06] MEDS: Budesonide 0.5 mg/2 ml Inhal Susp UD IH SCH ×2 (07:37→20:16)
--- NOTE | 2018-10-06 08:20 | CP.PCM.PN ---
Subjective - Date & Time of Evaluation Date of Evaluation: 10/06/18 Time of Evaluation: 06:40 - Subjective Subjective: General surgery progress note for Dr. Colby Cuevas, PGY-2 pt seen/examined at bedside Pt reports continued CP, LLQ abdominal pain, having bowel movements (small, hard). Denies N & V, F & C. Objective - Vital Signs/Intake and Output Vital Signs (last 24 hours): Temp Pulse Resp BP Pulse Ox 98.3 F 64 18 134/68 98 10/06/18 07:30 10/06/18 07:30 10/06/18 07:30 10/06/18 07:30 10/06/18 07:30 - Medications Medications: Current Medications Albuterol Sulfate (Albuterol 0.083% Inhal Yari (2.5 Mg/3 Ml) Ud) 2.5 mg IH [id number] [facility] Arformoterol Tartrate (Brovana) 15 mcg IH [id number] [facility] Last Admin: 10/06/18 07:36 Dose: 15 mcg Arformoterol Tartrate (Brovana) 15 mcg IH [id number] [facility] Last Admin: 10/06/18 07:38 Dose: Not Given Aspirin (Ecotrin) 81 mg PO DAILY [facility] Last Admin: 10/05/18 10:12 Dose: 81 mg Atorvastatin Calcium (Lipitor) 20 mg PO DIN [facility] Last Admin: 10/05/18 18:10 Dose: 20 mg Budesonide (Pulmicort Respules) 0.5 mg IH [id number] [facility] Last Admin: 10/06/18 07:37 Dose: 0.5 mg Clonazepam (Klonopin) 0.5 mg PO HS [facility]; Protocol Docusate Sodium (Colace) 100 mg PO BID [facility] Last Admin: 10/05/18 18:10 Dose: 100 mg Enoxaparin Sodium (Lovenox) 40 mg SC DAILY [facility]; Protocol Famotidine (Pepcid) 20 mg PO DAILY [facility] Last Admin: 10/05/18 10:12 Dose: 20 mg Fluticasone Propionate (Flonase) 1 actuation NS DAILY [facility] Last Admin: 10/05/18 10:14 Dose: 1 spr Insulin Detemir (Levemir) 8 unit SC HS [facility] Last Admin: 10/05/18 22:50 Dose: 8 units Insulin Detemir (Levemir) 7 unit SC DAILY [facility] Last Admin: 10/05/18 10:12 Dose: 7 units Insulin Human Regular (Humulin R Med) 0 units SC Q6H [facility]; Protocol Last Admin: 10/06/18 05:18 Dose: 5 units Ipratropium [place] (Atrovent) 0.5 mg IH RTID [facility] Last Admin: 10/06/18 07:36 Dose: 0.5 mg Levalbuterol HCl (Xopenex) 0.63 mg IH [id number] PRN PRN Reason: Shortness of Breath Last Admin: 10/06/18 07:36 Dose: 0.63 mg Montelukast Sodium (Singulair) 10 mg PO DAILY [facility] Last Admin: 10/05/18 10:12 Dose: 10 mg Oxycodone/Acetaminophen (Percocet 5/325 Mg Tab) 1 tab PO Q6H PRN PRN Reason: Pain, moderate (4-7) Stop: 10/07/18 14:41 Last Admin: 10/05/18 22:49 Dose: 1 tab Quetiapine Fumarate (Seroquel Xr) 300 mg PO HS PRN; Protocol PRN Reason: Insomnia Last Admin: 10/05/18 22:49 Dose: 300 mg Senna/Docusate Sodium (Senokot S 50 Mg-8.6 Mg) 1 tab PO DAILY [facility] Last Admin: 10/05/18 10:13 Dose: 1 tab - Labs Labs: 10/04/18 08:09 10/04/18 08:39 PT 12.3 SECONDS (9.4-12.5) 10/04/18 08:09 INR 1.09 10/04/18 08:09 APTT 30.8 Seconds (26.9-38.3) 10/04/18 08:09 - Constitutional Appears: Non-toxic, No Acute Distress - Head Exam Head Exam: ATRAUMATIC, NORMAL INSPECTION, NORMOCEPHALIC - Eye Exam Eye Exam: EOMI, Normal appearance - ENT Exam ENT Exam: Mucous Membranes Moist, Normal Exam - Respiratory Exam Respiratory Exam: NORMAL BREATHING PATTERN - Cardiovascular Exam Cardiovascular Exam: REGULAR RHYTHM, +S1, +S2 - GI/Abdominal Exam GI & Abdominal Exam: Soft, Tenderness (LLQ tenderness). absent: Distended, Firm, Guarding, Rigid - Extremities Exam Extremities Exam: Normal Inspection - Neurological Exam Neurological Exam: Alert, Awake, CN II-XII Intact, Oriented x3 - Psychiatric Exam Psychiatric exam: Normal Affect, Normal Mood - Skin Skin Exam: Dry, Intact, Normal Color, Warm Assessment and Plan - Assessment and Plan (Free Text) Assessment: 68M w/abdominal pain Plan: Pain control Monitor for bowel function Plan for cardiac cath 10/08 Further surgical planning pending cardiac findings Further care as per primary Will SHAYLA Cuevas, PGY-2
[2018-10-06] MEDS: Oxycodone/Acetaminophen 5/325 mg Tab PO PRN ×2 (09:05→22:13)
[2018-10-06] MEDS: Enoxaparin 40 mg Syringe SC SCH (09:06)
[2018-10-06] MEDS: Fluticasone Nasal 50 mcg/Spray NS SCH (09:07)
[2018-10-06] MEDS: Insulin Detemir 100 units/ml Vial (Levemir) SC SCH ×2 (09:07→22:14)
[2018-10-06] MEDS: Docusate-Senna 50 mg-8.6 mg Tab PO SCH ×2 (09:53→10:07)
[2018-10-06 10:32] LABS: HEMOGLOBIN 14.5 g/dL (14.0-18.0); MEAN CELL VOLUME 91.5 fl (80.0-105.0); MEAN CORPUSCULAR HGB CONC 33.9 g/dl (31.0-37.0); MEAN PLATELET VOLUME 9.6 fl (7.0-11.0); RBC 4.68 10^6/uL (3.5-6.1); WHITE BLOOD COUNT 14.6 10^3/uL (4.5-11.0)
[2018-10-06] MEDS: QUEtiapine 300 mg XR Tab PO PRN (22:13)
[2018-10-07] MEDS: Piperacillin/Tazobact 3.375 gm 100 ML IVPB SCH ×4 (05:02→23:53)
[2018-10-07] MEDS: Insulin Reg-MEDIUM-Coverage SC SCH ×4 (05:02→21:52)
[2018-10-07] MEDS: Arformoterol 15 mcg/2 ml Inh Sol IH SCH ×4 (07:06→22:38)
[2018-10-07] MEDS: Budesonide 0.5 mg/2 ml Inhal Susp UD IH SCH ×2 (07:09→19:47)
[2018-10-07] MEDS: Levalbuterol 0.63 MG/3 ML Inhal Soln UD IH PRN ×2 (07:09→19:47)
--- NOTE | 2018-10-07 07:39 | CP.PCM.PN ---
Subjective - Date & Time of Evaluation Date of Evaluation: 10/07/18 Time of Evaluation: 06:45 - Subjective Subjective: General surgery progress note for Dr. Colby Cuevas, PGY-2 pt seen/examined at bedside Pt continues with intermittent CP, reports improved LLQ abdominal pain. Continues to have small, hard BMs. Denies N & V, F & C. Plan for cardiac intervention on 10/08. Objective - Vital Signs/Intake and Output Vital Signs (last 24 hours): Temp Pulse Resp BP Pulse Ox 98.6 F 99 H 18 132/67 96 10/06/18 22:09 10/06/18 22:09 10/06/18 22:09 10/06/18 22:09 10/06/18 22:09 Intake and Output: 10/07/18 10/07/18 06:59 18:59 Intake Total 120 Balance 120 - Medications Medications: Current Medications Albuterol Sulfate (Albuterol 0.083% Inhal Yari (2.5 Mg/3 Ml) Ud) 2.5 mg IH [id number] [facility] Arformoterol Tartrate (Brovana) 15 mcg IH [id number] [facility] Last Admin: 10/07/18 07:09 Dose: 15 mcg Arformoterol Tartrate (Brovana) 15 mcg IH [id number] [facility] Last Admin: 10/07/18 07:06 Dose: Not Given Aspirin (Ecotrin) 81 mg PO DAILY [facility] Last Admin: 10/06/18 09:06 Dose: 81 mg Atorvastatin Calcium (Lipitor) 20 mg PO DIN [facility] Last Admin: 10/06/18 17:19 Dose: 20 mg Budesonide (Pulmicort Respules) 0.5 mg IH [id number] [facility] Last Admin: 10/07/18 07:09 Dose: 0.5 mg Clonazepam (Klonopin) 0.5 mg PO HS [facility]; Protocol Last Admin: 10/06/18 22:13 Dose: 0.5 mg Docusate Sodium (Colace) 100 mg PO BID [facility] Last Admin: 10/06/18 17:19 Dose: 100 mg Enoxaparin Sodium (Lovenox) 40 mg SC DAILY [facility]; Protocol Last Admin: 10/06/18 09:06 Dose: 40 mg Famotidine (Pepcid) 20 mg PO DAILY [facility] Last Admin: 10/06/18 09:06 Dose: 20 mg Fluticasone Propionate (Flonase) 1 actuation NS DAILY [facility] Last Admin: 10/06/18 09:07 Dose: 1 spr Piperacillin Sod/Tazobactam Sod (Zosyn 3.375 In Ns 100ml) 100 mls @ 200 mls/hr IVPB Q6 [facility]; Protocol Stop: 10/14/18 06:01 Last Admin: 10/07/18 05:02 Dose: 200 mls/hr Insulin Detemir (Levemir) 7 unit SC DAILY [facility] Last Admin: 10/06/18 09:07 Dose: 7 units Insulin Detemir (Levemir) 10 unit SC HS [facility] Last Admin: 10/06/18 22:14 Dose: 10 units Insulin Human Regular (Humulin R Med) 0 units SC Q6H [facility]; Protocol Last Admin: 10/07/18 05:02 Dose: 3 units Ipratropium [place] (Atrovent) 0.5 mg IH RTID [facility] Last Admin: 10/06/18 13:50 Dose: 0.5 mg Levalbuterol HCl (Xopenex) 0.63 mg IH [id number] PRN PRN Reason: Shortness of Breath Last Admin: 10/07/18 07:09 Dose: 0.63 mg Montelukast Sodium (Singulair) 10 mg PO DAILY [facility] Last Admin: 10/06/18 09:06 Dose: 10 mg Oxycodone/Acetaminophen (Percocet 5/325 Mg Tab) 1 tab PO Q6H PRN PRN Reason: Pain, moderate (4-7) Stop: 10/07/18 14:41 Last Admin: 10/06/18 22:13 Dose: 1 tab Quetiapine Fumarate (Seroquel Xr) 300 mg PO HS PRN; Protocol PRN Reason: Insomnia Last Admin: 10/06/18 22:13 Dose: 300 mg Senna/Docusate Sodium (Senokot S 50 Mg-8.6 Mg) 1 tab PO DAILY [facility] Last Admin: 10/06/18 10:07 Dose: 1 tab - Labs Labs: 10/06/18 10:25 10/04/18 08:39 PT 12.3 SECONDS (9.4-12.5) 10/04/18 08:09 INR 1.09 10/04/18 08:09 APTT 30.8 Seconds (26.9-38.3) 10/04/18 08:09 - Constitutional Appears: Non-toxic, No Acute Distress - Head Exam Head Exam: ATRAUMATIC, NORMAL INSPECTION, NORMOCEPHALIC - Eye Exam Eye Exam: EOMI, Normal appearance - ENT Exam ENT Exam: Mucous Membranes Moist, Normal Exam - Respiratory Exam Respiratory Exam: NORMAL BREATHING PATTERN - Cardiovascular Exam Cardiovascular Exam: REGULAR RHYTHM - GI/Abdominal Exam GI & Abdominal Exam: Soft, Tenderness (LLQ), Hernia (L groin). absent: Distended, Firm, Guarding - Neurological Exam Neurological Exam: Alert, Awake, CN II-XII Intact, Oriented x3 - Psychiatric Exam Psychiatric exam: Normal Affect, Normal Mood - Skin Skin Exam: Dry, Intact, Normal Color, Warm Assessment and Plan - Assessment and Plan (Free Text) Assessment: 68M w/abdominal pain- improving Plan: Pain control Continue bowel regimen Cardiac cath 10/08 Further surgical planning pending cardiac findings Further care as per primary team Will DW Dr. Larisa Cuevas, PGY-2
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
[2018-10-07] MEDS: Docusate-Senna 50 mg-8.6 mg Tab PO SCH (09:48)
[2018-10-07] MEDS: Insulin Detemir 100 units/ml Vial (Levemir) SC SCH ×2 (09:49→21:52)
[2018-10-07] MEDS: POLYETHYLENE GLYCOL 3350 17 GM/Dose PACKET PO SCH (09:49)
[2018-10-07] MEDS: Enoxaparin 40 mg Syringe SC SCH (09:52)
[2018-10-07] MEDS: Fluticasone Nasal 50 mcg/Spray NS SCH (09:52)
[2018-10-07] MEDS: Oxycodone/Acetaminophen 5/325 mg Tab PO PRN (10:26)
[2018-10-07] MEDS: Albuterol 0.083% Inhal Sol (2.5 mg/3 mL) UD IH SCH ×2 (13:24→22:38)
--- NOTE | 2018-10-07 16:47 | PN ---
DATE: 10/07/[address] Albre Jay. SUBJECTIVE: The patient denies any chest pain, shortness of breath, any palpitation. The patient is scheduled for cardiac catheterization tomorrow. Nurse has asked the patient can be discharged though the patient is available for cardiac catheterization and is scheduled for tomorrow at 9:30. PHYSICAL EXAMINATION: GENERAL: Not in apparent distress. VITAL SIGNS: Temperature afebrile. Heart rate 69, blood pressure 122/70. HEENT: PERRLA. Extraocular muscles intact. NECK: Supple. No carotid bruits or thyromegaly. CHEST: Clear to auscultation. HEART: S1, S2. Regular. ABDOMEN: Soft. EXTREMITIES: Clubbing, cyanosis negative. LABORATORY DATA: Blood workup, WBC 14.6, hemoglobin 14.5, hematocrit 42.8, platelet count 279. Chemistry shows sodium , potassium 4, chloride 103, bicarb 29, anion gap of 12, BUN 14, creatinine 0.8. INR 1.01. IMPRESSION: A 68-year-old male came with abdominal pain, intermittent chest pain, diabetes, hypertension, hyperlipidemia, high probability of coronary artery disease as per Dr. Jay's assessment and is scheduled for cardiac catheterization. The patient wanted to go home and come back. I tried to convince the patient. The patient agreed. We will keep n.p.o., load with aspirin and Plavix, and he has been already scheduled for cardiac catheterization. We will follow with you and we will transfer care tomorrow to Dr. Jay. We will hold Lovenox after today's dose and keep n.p.o. and load with Plavix 300 now and 75 from tomorrow and keep n.p.o. after 12 midnight for cardiac catheterization tomorrow. Thank you for providing us the opportunity in taking care of the patient, Erasmo Noel. Anushka Hill MD
[2018-10-07] MEDS: QUEtiapine 300 mg XR Tab PO PRN (21:50)
[2018-10-07 23:44] LABS: HEMOGLOBIN 14.7 g/dL (14.0-18.0); MEAN CORPUSCULAR HEMOGLOBIN 31.3 pg (25.0-35.0); MEAN CORPUSCULAR HGB CONC 33.7 g/dl (31.0-37.0); MEAN PLATELET VOLUME 9.8 fl (7.0-11.0); RBC 4.69 10^6/uL (3.5-6.1); RED CELL DISTRIBUTION WIDTH 13.3 % (11.5-14.5); WHITE BLOOD COUNT 13.5 10^3/uL (4.5-11.0)
--- NOTE | 2018-10-08 00:44 | PN ---
DATE: 10/07/2018 SUBJECTIVE: Erasmo Noel is a 68-year-old male who came in complaining of left inguinal pain and intermittent chest pain. The patient is stable now. He has no chest pain. He is going for cardiac cath in the morning. No nausea. He complained only of mild left inguinal area pain. PHYSICAL EXAMINATION VITAL SIGNS: Temperature is 97.8, heart rate 79, blood pressure 147/77, respirations 18, and saturation is 95% on room air. HEAD AND NECK: Normal. No JVD or thyromegaly. CHEST: Clear bilaterally. CARDIAC: First sound and second sound normal. No murmur, rub or gallop. ABDOMEN: Soft, nontender except minimal left lower quadrant is tender. NEUROLOGIC: Normal. LABORATORY STUDIES: Blood sugar running 204 to 296. No recent sugar reading today. Last CBC; white count 14.6, hemoglobin 14.5, hematocrit 42.8, platelets 279. Urinalysis was negative. ASSESSMENT AND PLAN: 1. Intermittent chest pain, going for cardiac catheterization tomorrow. 2. Left side inguinal area pain. The patient possibly will go for surgery for that. 3. Chronic obstructive pulmonary disease, chronic, stable. Continue inhaled bronchodilators, Brovana, Pulmicort, and Xopenex. 4. Diabetes. Blood sugar running high in spite of increasing the insulin. I checked on recent blood sugar reading. We will get blood work tomorrow, CBC, chemistry in the morning. 5. History of cerebrovascular accident, chronic back pain. Continue oxycodone and follow up clinically. The patient has been on Lovenox for deep vein thrombosis prophylaxis plus aspirin and Pepcid 20 mg, continue current therapy. PLAN: Continue current treatment. Followup clinically. Aleks Pizano MD
[2018-10-08] MEDS: Albuterol 0.083% Inhal Sol (2.5 mg/3 mL) UD IH SCH ×3 (01:49→13:47)
--- NOTE | 2018-10-08 03:30 | CON ---
DATE: 10/07/2018 LOCATION: The patient was seen earlier today in room 572, bed 2. CHIEF COMPLAINT: Left groin pain times several days. HISTORY OF PRESENT ILLNESS: This is a 68-year-old male with past medical history significant for chronic obstructive lung disease, coronary artery disease, hypertension, diabetes mellitus, who was admitted with a left lower quadrant abdominal pain for the past two weeks. It has been on and off for several months, however, over the last two weeks it has gotten worse. The patient states that he has no nausea, no vomiting. He did have an episode of diarrhea four days ago and two weeks ago had one episode of vomiting. No fever or chills. No dysuria or frequency. No new back pain. No new chest pain. PAST MEDICAL HISTORY: Significant for COPD, coronary artery disease, hypertension, diabetes. The patient has also had cerebrovascular accident in addition to COPD and hard of hearing and has GERD and depression. PAST SURGICAL HISTORY: Significant for a left hip surgery, a cardiac catheterization, and the left inguinal surgery. ALLERGIES: THE PATIENT HAS NO KNOWN ALLERGIES TO ANY ANTIBIOTICS. HOME MEDICATIONS: Reviewed. REVIEW OF SYSTEMS: A 12-point review of systems is performed. PHYSICAL EXAMINATION GENERAL: The patient is in bed. VITAL SIGNS: Temperature of 98, blood pressure is 140/70, respiratory rate of 18, heart rate of 99. HEENT: Unremarkable. NECK: Supple. LUNGS: Decreased breath sounds. HEART: Normal S1 and S2. ABDOMEN: Soft and nontender. No rebound or guarding. No masses. LABORATORY DATA: Reveals a white count of 14,600, hemoglobin of 14. Creatinine is 0.8. Urinalysis is noted. Toxicology is noted. Microbiology is noted. The patient's CAT scan of the abdomen and pelvis is reviewed. No acute intraabdominal findings. MEDICATIONS: The patient is on Zosyn. CONSULTATIONS: Surgical note is reviewed. Dr. Cai's consultation is reviewed. ASSESSMENT AND PLAN: This is a 68-year-old male with systemic inflammatory response syndrome with a left groin pain secondary to an inguinal hernia, currently on Zosyn pending arias cultures. The patient is scheduled for cardiac catheterization tomorrow. We will follow with you. Josh Sheppard MD
[2018-10-08] MEDS: Insulin Reg-MEDIUM-Coverage SC SCH ×2 (05:17→13:04)
[2018-10-08] MEDS: Piperacillin/Tazobact 3.375 gm 100 ML IVPB SCH ×2 (05:24→13:05)
[2018-10-08] MEDS: Arformoterol 15 mcg/2 ml Inh Sol IH SCH ×2 (07:24→11:07)
[2018-10-08] MEDS: Ipratropium 0.02% Inhal Soln (0.5 mg/2.5 ml) UD IH SCH (07:24)
[2018-10-08] MEDS: Budesonide 0.5 mg/2 ml Inhal Susp UD IH SCH (07:24)
--- NOTE | 2018-10-08 08:12 | CP.PCM.PN ---
Subjective - Date & Time of Evaluation Date of Evaluation: 10/08/18 Time of Evaluation: 08:09 - Subjective Subjective: Surgery Progress Note for Dr. Peres 68M seen and evaluated at bedside this morning. No acute events overnight. No complaints this morning. Patient having bowel movements and passing gas daily. Patient ambulating. Patient voiding. Denies f/c, n/v/d, SOB, CP, or urinary symptoms. Objective - Vital Signs/Intake and Output Vital Signs (last 24 hours): Temp Pulse Resp BP Pulse Ox 98.1 F 65 20 114/72 95 10/07/18 22:37 10/07/18 22:37 10/07/18 22:37 10/07/18 22:37 10/07/18 22:37 Intake and Output: 10/08/18 10/08/18 06:59 18:59 Intake Total 420 Balance 420 - Medications Medications: Current Medications Albuterol Sulfate (Albuterol 0.083% Inhal Yari (2.5 Mg/3 Ml) Ud) 2.5 mg IH [id number] [facility] Last Admin: 10/08/18 07:23 Dose: 2.5 mg Arformoterol Tartrate (Brovana) 15 mcg IH [id number] [facility] Last Admin: 10/08/18 07:24 Dose: 15 mcg Arformoterol Tartrate (Brovana) 15 mcg IH [id number] [facility] Last Admin: 10/07/18 22:38 Dose: 15 mcg Aspirin (Ecotrin) 81 mg PO DAILY [facility] Last Admin: 10/08/18 06:53 Dose: 81 mg Atorvastatin Calcium (Lipitor) 20 mg PO DIN [facility] Last Admin: 10/07/18 17:18 Dose: 20 mg Budesonide (Pulmicort Respules) 0.5 mg IH [id number] [facility] Last Admin: 10/08/18 07:24 Dose: 0.5 mg Clonazepam (Klonopin) 0.5 mg PO HS [facility]; Protocol Last Admin: 10/07/18 21:50 Dose: 0.5 mg Clopidogrel Bisulfate (Plavix) 75 mg PO DAILY [facility] Last Admin: 10/08/18 06:53 Dose: 75 mg Docusate Sodium (Colace) 100 mg PO BID [facility] Last Admin: 10/07/18 17:18 Dose: 100 mg Enoxaparin Sodium (Lovenox) 40 mg SC DAILY [facility]; Protocol Last Admin: 10/07/18 09:52 Dose: 40 mg Famotidine (Pepcid) 20 mg PO DAILY [facility] Last Admin: 10/07/18 09:49 Dose: 20 mg Fluticasone Propionate (Flonase) 1 actuation NS DAILY [facility] Last Admin: 10/07/18 09:52 Dose: 41 spr Piperacillin Sod/Tazobactam Sod (Zosyn 3.375 In Ns 100ml) 100 mls @ 200 mls/hr IVPB Q6 [facility]; Protocol Stop: 10/14/18 06:01 Last Admin: 10/08/18 05:24 Dose: 200 mls/hr Insulin Detemir (Levemir) 7 unit SC DAILY [facility] Last Admin: 10/07/18 09:49 Dose: 7 units Insulin Detemir (Levemir) 10 unit SC HS [facility] Last Admin: 10/07/18 21:52 Dose: Not Given Insulin Human Regular (Humulin R Med) 0 units SC Q6H [facility]; Protocol Last Admin: 10/08/18 05:17 Dose: Not Given Ipratropium [place] (Atrovent) 0.5 mg IH RTID [facility] Last Admin: 10/08/18 07:24 Dose: 0.5 mg Levalbuterol HCl (Xopenex) 0.63 mg IH [id number] PRN PRN Reason: Shortness of Breath Last Admin: 10/07/18 19:47 Dose: 0.63 mg Montelukast Sodium (Singulair) 10 mg PO DAILY [facility] Last Admin: 10/07/18 09:48 Dose: 10 mg Polyethylene Glycol (Miralax) 17 gm PO DAILY [facility] Last Admin: 10/07/18 09:49 Dose: 17 gm Quetiapine Fumarate (Seroquel Xr) 300 mg PO HS PRN; Protocol PRN Reason: Insomnia Last Admin: 10/07/18 21:50 Dose: 300 mg Senna/Docusate Sodium (Senokot S 50 Mg-8.6 Mg) 1 tab PO DAILY [facility] Last Admin: 10/07/18 09:48 Dose: 1 tab - Labs Labs: 10/07/18 23:25 10/04/18 08:39 PT 12.3 SECONDS (9.4-12.5) 10/04/18 08:09 INR 1.09 10/04/18 08:09 APTT 30.8 Seconds (26.9-38.3) 10/04/18 08:09 - Constitutional Appears: Well, Non-toxic, No Acute Distress - Head Exam Head Exam: ATRAUMATIC, NORMAL INSPECTION, NORMOCEPHALIC - Eye Exam Eye Exam: EOMI - ENT Exam ENT Exam: Mucous Membranes Moist - Respiratory Exam Respiratory Exam: NORMAL BREATHING PATTERN. absent: Wheezes, Respiratory Distress - Cardiovascular Exam Cardiovascular Exam: REGULAR RHYTHM, +S1, +S2 - GI/Abdominal Exam GI & Abdominal Exam: Soft, Normal Bowel Sounds. absent: Distended, Tenderness - Neurological Exam Neurological Exam: Alert, Awake, Oriented x3 - Psychiatric Exam Psychiatric exam: Normal Affect, Normal Mood - Skin Skin Exam: Dry, Intact, Normal Color, Warm Assessment and Plan - Assessment and Plan (Free Text) Assessment: 68M w/ left inguinal hernia pending cardiac catheterization today Plan: Pending cardiac cath F/u cardiology recommendations Continue to monitor bowel function Will reassess need for surgical intervention following cardiac procedure and clearance D/w Dr. Larisa Ryan PGY1
--- NOTE | 2018-10-08 08:55 | PN ---
DATE: 10/06/2018 SUBJECTIVE: Patient does complain of just mild left lower quadrant inguinal area pain. No chest pain. No short of breath. No fever. Stable. Going for cardiac cath on Monday. PHYSICAL EXAMINATION: VITAL SIGNS: Temperature 98.6, heart rate 99, blood pressure 132/67, respirations 18, saturation 96%. HEAD AND NECK: Normal. No JVD. No thyromegaly. CHEST: Clear bilaterally. CARDIAC: First sound and second sound normal. No murmur, rub, or gallop. ABDOMEN: Soft and nontender. EXTREMITIES: No edema. NEUROLOGIC: Normal. LABORATORY DATA: White count 14.6, hemoglobin 14.5, hematocrit 42.8, platelets 279. Chemistry hernandez, patient has blood sugar running from 200s to 180. IMPRESSION AND PLAN: 1. Left inguinal pain, possible hernia related versus colitis. He had a colonoscopy in August that shows diverticulosis and internal hemorrhoids. We will follow up with Gastroenterology consult with Dr. Cai. 2. Intermittent chest pain, right now the patient is stable. He will go for cardiac catheterization preoperatively. 3. Chronic obstructive pulmonary disease, stable. Continue nebulizer treatment. 4. Diabetes, blood sugar is running high. Increase Levemir to 10 units at night subcutaneous. We will monitor his sugar and he may need more insulin. Continue and also we will increase his insulin coverage to medium insulin coverage. 5. Cerebrovascular accident. Patient is off antiplatelet at this time, possibly he may for surgery soon. We will get a cardiac catheterization. He got aspirin, likely we will monitor his condition for now. 6. Leukocytosis, etiology unclear. I did get an Infectious Disease consult with Dr. Sheridan, We will repeat a CBC in the morning and follow up with the Infectious Disease consultation and recommendations. Continue current therapy for now. 7. For his left inguinal hernia, patient will need surgery after cardiac catheterization if it is negative. Aleks Pizano MD
[2018-10-08] MEDS ORDERED: Iohexol 350mgl/ml 50 ML ONE (09:44)
[2018-10-08] MEDS ORDERED: Iodixanol 320 MG/ML 100 ML BOTTLE IV ONE (09:44)
[2018-10-08] MEDS ORDERED: Lidocaine PF 2% (5 ml) Inj (For Cardiac Arrhy) ONE (09:44)
[2018-10-08] MEDS ORDERED: Iodixanol 320 MG/ML 200 ML BOTTLE IV ONE (09:44)
[2018-10-08] MEDS ORDERED: Midazolam 2 MG/2 ML VIAL ONE ×2 (10:17→10:29)
[2018-10-08] MEDS ORDERED: Sodium Chloride 0.9% 1,000 ML IV SCH (10:45)
[2018-10-08 13:01] VITALS: TEMP 97.9
[2018-10-08] MEDS: Insulin Detemir 100 units/ml Vial (Levemir) SC SCH (13:05)
[2018-10-08] MEDS: POLYETHYLENE GLYCOL 3350 17 GM/Dose PACKET PO SCH (13:06)
[2018-10-08] MEDS: Docusate-Senna 50 mg-8.6 mg Tab PO SCH (13:06)
[2018-10-08] MEDS ORDERED: Oxycodone/Acetaminophen 5/325 mg Tab PO PRN (13:20)
--- NOTE | 2018-10-08 14:32 | CARDCATH ---
DATE: 10/08/2018 CARDIOLOGY CATHETERIZATION SUBJECTIVE: The patient has multiple cardiac risk factors in addition to exertional angina, because of this, cardiac catheterization is recommended. PROCEDURE: Left heart catheterization with coronary arteriography and left ventriculogram. The right femoral artery was cannulated with 6-Stateless sheath. There were no complications. I performed moderate sedation which included the presence of an independent trained observer that assisted in monitoring the patient's level of consciousness and physiologic status. After administration of Versed and fentanyl, my intra service time was 30 minutes. The findings on catheterization revealed a left dominant circulation. The RCA was a small vessel which revealed a 50% stenosis in the midportion. The left main artery was unremarkable. The LAD and diagonal vessels revealed intimal irregularities without critical lesions. The circumflex artery and obtuse marginal branches revealed intimal irregularities without critical lesions. LV was visualized in the BLACK projection. The BLACK projection, wall motion was within normal limits. Estimated ejection fraction of 55% to 60%. AngioSeal was used to close the femoral artery site. The patient tolerated the procedure well. SUMMARY: The procedure revealed single-vessel CAD of a small nondominant RCA of 50% LV function is normal. Given these findings, the patient has no significant coronary artery disease. The patient's cardiac status is stable for planned hernia surgery. Alber Jay MD
[2018-10-08 17:41] LABS: BASO # 0.07 K/mm3 (0.0-2.0); BASO % 0.5 % (0.0-3.0); EOS # 0.5 (0.0-0.7); HEMOGLOBIN 15.6 g/dL (14.0-18.0); LYMPH # 2.7 (1.2-3.4); LYMPH % 20.9 % (22.0-35.0); MEAN CELL VOLUME 93.5 fl (80.0-105.0); MEAN CORPUSCULAR HEMOGLOBIN 30.9 pg (25.0-35.0); MEAN CORPUSCULAR HGB CONC 33.1 g/dl (31.0-37.0); MEAN PLATELET VOLUME 9.8 fl (7.0-11.0); MONO # 1.2 (0.1-0.6); MONO % 8.9 % (1.0-6.0); RBC 5.05 10^6/uL (3.5-6.1); RED CELL DISTRIBUTION WIDTH 13.2 % (11.5-14.5); WHITE BLOOD COUNT 13.1 10^3/uL (4.5-11.0)
[2018-10-08 18:14] VITALS: BP 149/78; PULSE 85; RESP 20; O2SAT 98
--- NOTE | 2018-10-08 22:20 | PN ---
DATE: 10/08/2018 SUBJECTIVE: The patient is seen in bed, in no acute distress, nontoxic. PHYSICAL EXAMINATION: VITAL SIGNS: Temperature is 98, blood pressure is 140/60, respiratory rate of 18. HEENT: Unremarkable. NECK: Supple. LUNGS: Have decreased breath sounds. HEART: Normal S1 and S2. ABDOMEN: Soft, nontender. LABORATORY EXAMINATION: Reveals a white count of 13,500 from yesterday. The patient has BUN of 14, creatinine of 0.8. Urinalysis is noted. Toxicology is noted. Microbiology: Blood cultures are negative. Dr. Alber Jay's progress note is reviewed. The patient's left ventricular function is normal, RCA has 50%, no significant coronary artery disease. The patient's cardiac status is stable for planned hernia surgery. ASSESSMENT AND PLAN: This is a 68-year-old male with systemic inflammatory response syndrome, pain secondary to the left inguinal hernia. Leukocytosis, etiology is unclear. Repeat complete blood count today. Follow white blood cell count. Thus far, the blood cultures are negative at 24 hours. The patient states he will sign out against medical advice if he is not discharged. He wants to be discharged today. I have explained to wait for his complete blood cell count at least. Josh Sheppard MD
== END 2018-10-08 20:39 | disposition home or self-care (01) | DRG 395 ==
LOC: ED 07:04 → ERH 10:11 → 5RSO 12:00 → 2RSO 10-08 10:59 → 5RSO 10-08 16:05 → 2RSO 10-08 16:10
PROVIDERS: ADMIT Specialist; ATTEND Internal Medicine
PROC: 4A023N7 Measurement of Cardiac Sampling and Pressure, Left Heart, Percutaneous Approach (ICD-10-PCS; principal; 2018-10-08)
PROC: B2111ZZ Fluoroscopy of Multiple Coronary Arteries using Low Osmolar Contrast (ICD-10-PCS; 2018-10-08)
PROC: B2151ZZ Fluoroscopy of Left Heart using Low Osmolar Contrast (ICD-10-PCS; 2018-10-08)
DX: K40.30 Unilateral inguinal hernia, with obstruction, without gangrene, not specified as recurrent (principal); J44.9 Chronic obstructive pulmonary disease, unspecified; I25.119 Atherosclerotic heart disease of native coronary artery with unspecified angina pectoris; I10 Essential (primary) hypertension; Z86.73 Personal history of transient ischemic attack (TIA), and cerebral infarction without residual deficits; F41.9 Anxiety disorder, unspecified; F17.200 Nicotine dependence, unspecified, uncomplicated; K57.90 Diverticulosis of intestine, part unspecified, without perforation or abscess without bleeding; K55.20 Angiodysplasia of colon without hemorrhage; E11.9 Type 2 diabetes mellitus without complications; E78.00 Pure hypercholesterolemia, unspecified; E78.5 Hyperlipidemia, unspecified; G89.29 Other chronic pain; H91.92 Unspecified hearing loss, left ear; I25.2 Old myocardial infarction; I65.29 Occlusion and stenosis of unspecified carotid artery; K21.9 Gastro-esophageal reflux disease without esophagitis; K57.30 Diverticulosis of large intestine without perforation or abscess without bleeding; K64.8 Other hemorrhoids; K59.00 Constipation, unspecified; M19.90 Unspecified osteoarthritis, unspecified site; Z79.4 Long term (current) use of insulin; Z79.52 Long term (current) use of systemic steroids; Z79.82 Long term (current) use of aspirin; Z87.01 Personal history of pneumonia (recurrent); Z87.11 Personal history of peptic ulcer disease; Z87.440 Personal history of urinary (tract) infections

== ENCOUNTER 2018-10-12 11:29 | Day surgery (SDC) | payer MEDICARE, OTHER ==
[2018-10-12 12:29] LABS: HEMOGLOBIN 14.5 g/dL (14.0-18.0); MEAN CELL VOLUME 93.4 fl (80.0-105.0); MEAN CORPUSCULAR HGB CONC 33.2 g/dl (31.0-37.0); MEAN PLATELET VOLUME 10.1 fl (7.0-11.0); RBC 4.68 10^6/uL (3.5-6.1); RED CELL DISTRIBUTION WIDTH 12.9 % (11.5-14.5)
[2018-10-12] MEDS ORDERED: Bupivacaine 0.5% 50 ML IJ ONE (14:13)
[2018-10-12] MEDS ORDERED: Midazolam 2 MG/2 ML VIAL ONE (16:09)
[2018-10-12] MEDS ORDERED: Propofol 10 mg/ml Inj (20 ML) ONE (16:09)
[2018-10-12] MEDS ORDERED: Etomidate 20 mg/10ml Inj IV ONE (16:51)
[2018-10-12] MEDS ORDERED: Rocuronium 10 mg/ml (5 ml) ONE (16:52)
[2018-10-12] MEDS ORDERED: Neostigmine Methylsulfate 3mg/3ml Syringe IV ONE (17:13)
[2018-10-12] MEDS ORDERED: ePHEDrine 50 mg/ml Inj ONE (17:13)
[2018-10-12] MEDS ORDERED: Phenylephrine 10 mg/ml Inj ONE (17:13)
[2018-10-12] MEDS ORDERED: Esmolol 100 mg/10ml Inj IV ONE (17:23)
[2018-10-12] MEDS ORDERED: Oxycodone/Acetaminophen 5/325 mg Tab PO PRN (17:41)
[2018-10-12] MEDS ORDERED: HYDROmorphone 0.5 mg/0.5 ml ISec IVP PRN (17:43)
[2018-10-12] MEDS ORDERED: Sodium Chloride 0.9% 1,000 ML IV SCH (17:45)
--- NOTE | 2018-10-12 17:54 | PCM.SURG1 ---
Surgeon's Initial Post Op Note - Surgeon's Notes Surgeon: Dr. Peres Nutrition Professor: Dr. Ryan PGY1 Type of Anesthesia: General Endo, Local Anesthesia Administered By: Dr. Issa Pre-Operative Diagnosis: left inguinal hernia Operative Findings: see operative dictation Post-Operative Diagnosis: same Operation Performed: open left inguinal hernia repair with mesh Specimen/Specimens Removed: cord lipoma Estimated Blood Loss: EBL {In ML}: 10 Blood Products Given: N/A Drains Used: No Drains Post-Op Condition: Good Date of Surgery/Procedure: 10/12/18 Time of Surgery/Procedure: 17:53
--- NOTE | 2018-10-12 17:55 | CP.SDSHP ---
Same Day Surgery H & P - Allergies Allergies: Allergies No Known Allergies Allergy (Verified 10/04/18 11:49) - Physical Exam Vital Signs: Vital Signs 10/12/18 10/12/18 12:00 17:40 Temperature 97.7 F 98.2 F Pulse Rate 73 94 H Respiratory 20 18 Rate Blood Pressure 105/69 145/74 O2 Sat by Pulse 96 97 Oximetry Short Stay Discharge - Short Stay Discharge Admitting Diagnosis/Reason for Visit: K43.0 Disposition: HOME/ ROUTINE Referrals: Aleks Pizano MD [Primary Care Provider] - Follow-up: Please follow up with Dr. Peres, your surgeon, 2 weeks after discharge. Please call the office to make an appointment. Instructions: Groin Hernia Repair, Open Surgery Additional Instructions (Diet, Activity): Please follow up with with your surgeon, Dr. Peres, within 2 weeks of discharge. Please resume all home medications. For pain, please take Tylenol or Ibuprofen over the counter medication. Do not take Ibuprofen on an empty stomach. Please resume a regular, healthy diet. Activity as tolerated. No heavy lifting greater than 15 lbs for the next 4 weeks. Remove dressing over wound tomorrow 10/13/18. Below the dressing, there is surgical glue that will fall off on its own in 2 weeks. Do not peel it off. Ok to shower. Please avoid baths, jacuzzis, or large bodies of water for the next 2 weeks. If symptoms worsen, please return to the nearest emergency department.
[2018-10-12] MEDS: HYDROmorphone 0.5 mg/0.5 ml ISec ONE ×2 (18:00→18:40)
[2018-10-12] MEDS ORDERED: HYDROmorphone 0.5 mg/0.5 ml ISec ONE (18:53)
[2018-10-12] MEDS ORDERED: Phenytoin 100 mg/2 ml Inj ONE (18:53)
[2018-10-12] MEDS: Oxycodone/Acetaminophen 5/325 mg Tab PO PRN (20:38)
[2018-10-12] MEDS ORDERED: Insulin Detemir 100 units/ml Vial (Levemir) SC PRN (21:38)
[2018-10-12] MEDS ORDERED: Ipratropium 0.02% Inhal Soln (0.5 mg/2.5 ml) UD IH PRN (21:38)
[2018-10-12] MEDS ORDERED: QUEtiapine 300 mg XR Tab PO PRN (21:38)
[2018-10-12] MEDS ORDERED: Budesonide 0.5 mg/2 ml Inhal Susp UD IH SCH (22:00)
[2018-10-13] MEDS ORDERED: Albuterol HFA 90 mcg/actuation (8 g) IH SCH
[2018-10-13] MEDS ORDERED: cefTRIAXone 1 gm 1 GM/100 ML BAG IVPB ONE ×2 (00:18→23:50)
[2018-10-13] MEDS: Oxycodone/Acetaminophen 5/325 mg Tab PO PRN (01:41)
--- NOTE | 2018-10-13 06:24 | CP.PCM.PN ---
Subjective - Date & Time of Evaluation Date of Evaluation: 10/13/18 Time of Evaluation: 06:19 - Subjective Subjective: Surgery Progress Note for Dr. Peres 68M seen and evaluated at bedside this morning. Patient is complaining of surgical site pain as well as difficulty voiding. Bladder scan done showing 15cc of urine in bladder. PRN pain medications given overnight with moderate relief. Patient is ambulating and has had 2 BM. Denies f/c, n/v/d, SOB, CP, headaches, or dizziness. Objective - Vital Signs/Intake and Output Vital Signs (last 24 hours): Temp Pulse Resp BP Pulse Ox 97.8 F 77 20 173/98 H 94 L 10/12/18 22:42 10/12/18 22:42 10/12/18 22:42 10/12/18 22:42 10/12/18 22:42 Intake and Output: 10/12/18 10/13/18 18:59 06:59 Intake Total 0 Balance 0 - Medications Medications: Current Medications Acetaminophen (Tylenol 325mg Tab) 650 mg PO Q6H PRN PRN Reason: Fever >100.4 F Albuterol (Ventolin Hfa 90 Mcg/Actuation (8 G)) 1 puff IH Q6 [facility] Arformoterol Tartrate (Brovana) 15 mcg IH [id number] [facility] Atorvastatin Calcium (Lipitor) 20 mg PO DIN [facility] Budesonide (Pulmicort Respules) 0.5 mg IH [id number] [facility] Docusate Sodium (Colace) 100 mg PO DAILY [facility] Enoxaparin Sodium (Lovenox) 40 mg SC DAILY [facility]; Protocol Glipizide (Glucotrol) 10 mg PO DAILY [facility] Insulin Detemir (Levemir) 20 unit SC [facility] PRN PRN Reason: Serum glucose Ipratropium [place] (Atrovent) 0.5 mg IH TID PRN PRN Reason: Shortness of Breath Montelukast Sodium (Singulair) 10 mg PO DAILY [facility] Ondansetron HCl (Zofran Inj) 4 mg IVP Q4H PRN PRN Reason: Nausea/Vomiting Oxycodone/Acetaminophen (Percocet 5/325 Mg Tab) 1 tab PO Q4H PRN PRN Reason: Pain, moderate (4-7) Stop: 10/15/18 17:42 Oxycodone/Acetaminophen (Percocet 5/325 Mg Tab) 2 tab PO Q4H PRN PRN Reason: Pain, severe (8-10) Stop: 10/15/18 17:42 Last Admin: 10/13/18 01:41 Dose: 2 tab Quetiapine Fumarate (Seroquel Xr) 300 mg PO HS PRN; Protocol PRN Reason: Insomnia Last Admin: 10/12/18 22:28 Dose: 300 mg Sitagliptin Phosphate (Januvia) 100 mg PO DAILY [facility] Tramadol HCl (Ultram) 50 mg PO TID PRN PRN Reason: Pain, moderate (4-7) - Labs Labs: 10/12/18 12:00 - Constitutional Appears: Non-toxic, No Acute Distress - Head Exam Head Exam: ATRAUMATIC, NORMAL INSPECTION, NORMOCEPHALIC - Eye Exam Eye Exam: EOMI - ENT Exam ENT Exam: Mucous Membranes Dry - Respiratory Exam Respiratory Exam: NORMAL BREATHING PATTERN. absent: Wheezes, Respiratory Distress - Cardiovascular Exam Cardiovascular Exam: REGULAR RHYTHM, +S1, +S2 - GI/Abdominal Exam GI & Abdominal Exam: Soft, Normal Bowel Sounds. absent: Tenderness Additional comments: Left groin dressing c/d/i - Neurological Exam Neurological Exam: Alert, Awake, Oriented x3 - Psychiatric Exam Psychiatric exam: Normal Affect, Normal Mood - Skin Skin Exam: Dry, Intact, Normal Color, Warm Assessment and Plan - Assessment and Plan (Free Text) Assessment: 68M s/p open laparoscopic hernia repair POD1 Plan: Patient admitted to Dr. Pizano - needed further workup for leukocytosis evidenced prior to surgery ID consulted, f/u recommendations Monitor diet tolerance Pain control and antiemetics PRN Encourage ambulation and IS use Patient cleared for discharge from a surgical standpoint Patient must follow up with Dr. Peres in [address] Peres office in advance to schedule an appointment Jcaobo Ryan PGY1
[2018-10-13] MEDS ORDERED: Morphine 2 mg/ml ISec IVP PRN (06:46)
[2018-10-13 07:52] VITALS: BP 151/80; PULSE 73; RESP 18; TEMP 97.5; O2SAT 98
[2018-10-13] MEDS ORDERED: Arformoterol 15 mcg/2 ml Inh Sol IH SCH (08:00)
[2018-10-13] MEDS ORDERED: Insulin Reg-LOW-Coverage SC STA (09:00)
[2018-10-13] MEDS ORDERED: Enoxaparin 40 mg Syringe SC SCH (10:00)
[2018-10-13] MEDS ORDERED: Insulin Regular 1 UNITS/0.01 ML ML SC SCH (11:30)
--- NOTE | 2018-10-14 00:29 | HP ---
DATE OF EXAM: 10/12/2018 HISTORY OF PRESENT ILLNESS: This is a 68-year-old male who was having same-day surgery. For whatever reason, the patient could not go home because of pain and social issues, so the patient was admitted overnight for observation only and also noted that he has high white count elevation from outpatient. The patient also complained of dysuria, and we sent urine culture and sensitivity. The patient otherwise has no new complaints except left inguinal area region where surgery is done. He has not other complaints except frequent urination. PAST MEDICAL HISTORY: Carotid stenosis, history of left-sided CVA weakness, history of COPD, history of diabetes type 2, on insulin. ALLERGIES: NO KNOWN ALLERGIES. FAMILY HISTORY: Noncontributory. SOCIAL HISTORY: The patient is a smoker. No drinking. Lives with his family, supportive to him. REVIEW OF SYSTEMS: Chronic back pain, he does take oxycodone for that. Chronic cough. No burning urination as usual except in the present illness. Some left-sided weakness, uses cane with walking. Otherwise negative. PHYSICAL EXAMINATION: VITAL SIGNS: Temperature 97.8, heart rate 77, blood pressure 178/98, respiration 20, saturation 97% on room air. HEAD AND NECK: Normal. No JVD, no thyromegaly. CHEST: Clear bilateral. CARDIAC: First sound and second sound normal. No murmur, rub or gallop. ABDOMEN: Soft and nontender except left inguinal area. EXTREMITIES: No edema. SCDs on both lower extremities are noted. NEUROLOGIC: Very mild left leg weakness. LABORATORY STUDIES: Noted for CBC. White count 15,000, it went up from 14 to 15. Hemoglobin 14.5, hematocrit 43.7, platelets 285. IMPRESSION AND PLAN: 1. Status post left inguinal hernia. Continue pain medicine. Will monitor blood pressure. 2. Leukocytosis. We are going to get urine culture and we will follow up on that. Give him one dose of Rocephin to be followed as outpatient. 3. Chronic obstructive pulmonary disease. 4. Insulin-dependent diabetes. 5. Cerebrovascular accident. We will hold off on any antiplatelet for now, resume that after a day or two. Continue inhaled bronchodilator. Continue oxycodone, insulin and insulin coverage, probably glipizide and we will follow up as outpatient. He can start his antiplatelet 24 hours after the surgery. Continue the current therapy. Aleks Pizano MD
--- NOTE | 2018-10-14 02:55 | CON ---
DATE: 10/13/2018 REASON FOR CONSULTATION: I was called to see the patient today. He was in 565, bed 2. The patient was recently discharged, and he had leukocytosis. It was for left inguinal hernia repair with mesh placement. HISTORY OF PRESENT ILLNESS: This is a 68-year-old male with chronic obstructive lung disease, coronary artery disease, hypertension, diabetes, and depression. He was recently hospitalized, had left inguinal hernia, and now he is admitted for same-day. Upon discharge, on last admission, the patient had leukocytosis and he was to follow up as outpatient to follow up the leukocytosis. REVIEW OF SYSTEMS: The patient has no fevers, no chills, no abdominal pain, no leg pain, no diarrhea or constipation. PAST MEDICAL HISTORY: Significant for chronic obstructive lung disease, coronary artery disease, hypertension, diabetes, depression. PAST SURGICAL HISTORY: Significant for left hip surgery, cardiac catheterization, and inguinal surgery. ALLERGIES: THE PATIENT HAS NO KNOWN ALLERGIES. MEDICATIONS AT HOME: Reviewed and include as listed. PHYSICAL EXAMINATION: VITAL SIGNS: The patient has temperature of 97, heart rate of 95, respiratory rate of 18, blood pressure of 158/69. HEENT: Unremarkable. NECK: Supple. LUNGS: Have decreased breath sounds. HEART: Normal S1 and S2. ABDOMEN: Soft. The patient has dressing. LABORATORY DATA: Reveals a white count of 15,000 that was from yesterday. ASSESSMENT AND PLAN: This is a 68-year-old male status post left inguinal hernia repair with systemic inflammatory response syndrome. The patient agrees to follow up with his primary doctor for repeat WBC count and as discussed with the patient this morning, he will follow with the primary medical doctor as leukocytosis elevated, requiring further workup. Josh Sheppard MD
--- NOTE | 2018-10-14 03:03 | DS ---
HISTORY OF PRESENT ILLNESS: Patient was admitted overnight status post surgery. He has no chest pain. No short of breath. Admitted for observation for left inguinal hernia surgery pain, leukocytosis, and frequent urination. Consult was done, results are still pending. Patient has negative blood cultures and we will follow that. He was given Rocephin one dose IV and patient was discharged to be followed as outpatient. PHYSICAL EXAMINATION: No change. VITAL SIGNS: Temperature is 97.5, blood pressure 151/80, respirations 18, and saturation is 98%. HEAD AND NECK: Normal. No JVD. No thyromegaly. CHEST: Clear bilaterally. CARDIAC: First sound and second sound normal. ABDOMEN: Soft, nontender except left inguinal hernia. EXTREMITIES: No edema. NEUROLOGIC: Left side weakness. LABORATORY DATA: No labs were drawn. DISCHARGE DIAGNOSES: 1. Status post left inguinal hernia repair. 2. Hypertension secondary to pain. 3. Leukocytosis etiology, urine culture has been done. Patient received 1 g of Rocephin pending urine cultures. We will see him on Monday. We will probably going to start him on Vantin p.o. as outpatient. 4. Chronic obstructive pulmonary disease. 5. Insulin dependent diabetes. 6. Hypercholesterolemia. PLAN: We will resume all his medication as outpatient. See him next week, Monday and Monday. Aleks Pizano MD
--- NOTE | 2018-10-22 06:19 | OP ---
PROCEDURE DATE: 10/12/2018 PREOPERATIVE DIAGNOSIS: Incarcerated recurrent left inguinal hernia. POSTOPERATIVE DIAGNOSIS: Incarcerated recurrent left inguinal hernia. SURGERY: Repair of incarcerated recurrent left inguinal hernia with Marlex mesh and plug. SURGEON: Adrian Peres MD, PhD. ANESTHESIA: General endotracheal. DESCRIPTION OF PROCEDURE: The patient was brought into the operating room and placed on the operating table in the supine position. After smooth induction of general endotracheal anesthesia, Venodyne boots were placed in both the legs and prophylactic antibiotics were given. The entire lower abdomen, the scrotum, and left anterior thigh were prepped and draped in the usual sterile fashion. The area where this palpable incarcerated left inguinal hernia was infiltrated with local anesthetic and incised along the Joey's line and along the previous incision and was brought down to subcutaneous tissue using Bovie electrocautery. Dissection continued through the Janel's fascia and external oblique were identified and incised. Then, scar tissue was encountered. The spermatic cord was freed from its attachments to the inguinal canal all the way to the internal ring where it appeared to be the area of the internal wall defect, essentially the patient having an indirect hernia without any evidence of obvious hernia sac, so essentially, the previous mesh had migrated exposing the internal ring. The posterior wall of the inguinal canal appeared to be intact with the exception of the area on the internal ring; therefore a large Marlex mesh plug was inserted and secured to the inguinal ligament with a 2-0 Prolene stitch in two areas. Then, onlay large PerFix Marlex mesh was placed on the posterior wall of the inguinal canal and was secured with pubis and inferiorly to the shelving edge of the inguinal ligaments, and superiorly to the external oblique muscle all the way to the internal ring where the pre-fashioned limbs of the Marlex mesh wrapped around the spermatic cord of the internal ring level. The external oblique aponeurosis was closed with continuous 2-0 Vicryl stitch until the external ring, and the Janel's fascia was closed with interrupted 2-0 Vicryl stitches. The skin was closed with michael and sterile dressings were applied. At the end of the surgery, the count of the instruments, gauze, and needles was correct x2. The patient tolerated the surgery well and was transferred in stable condition to the recovery room. Adrian MD Larisa
== END 2018-10-13 09:35 | disposition home or self-care (01) ==
LOC: SDS 11:29 → 5RNO 19:27 → SDS 10-13 09:35
PROVIDERS: ATTEND Internal Medicine
DX: K40.90 Unilateral inguinal hernia, without obstruction or gangrene, not specified as recurrent (principal); D17.6 Benign lipomatous neoplasm of spermatic cord; R65.10 Systemic inflammatory response syndrome (SIRS) of non-infectious origin without acute organ dysfunction; I25.10 Atherosclerotic heart disease of native coronary artery without angina pectoris; J44.9 Chronic obstructive pulmonary disease, unspecified; I10 Essential (primary) hypertension; E11.9 Type 2 diabetes mellitus without complications; E78.00 Pure hypercholesterolemia, unspecified; D72.829 Elevated white blood cell count, unspecified; F32.89 Other specified depressive episodes; Z79.4 Long term (current) use of insulin; Z79.899 Other long term (current) drug therapy; Z98.890 Other specified postprocedural states; I69.354 Hemiplegia and hemiparesis following cerebral infarction affecting left non-dominant side
CPT/HCPCS: 36415; 49505; 85027; 87040; 87086; 88302; C1781; J0690; J0696; J1165; J1170; J1650; J2001; J2250; J2370; J2405; J2704; J2710; J3010; J7030; J7120

== ENCOUNTER 2018-10-13 19:08 | Observation (INO) | payer MEDICARE, OTHER ==
[2018-10-13 19:08] VITALS: BMI 26.4
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
[2018-10-13] MEDS: Sodium Chloride 0.9% 1,000 ML IV SCH (19:59)
[2018-10-13 20:05] LABS: BASO # 0.05 K/mm3 (0.0-2.0); BASO % 0.3 % (0.0-3.0); EOS # 0.2 (0.0-0.7); HEMOGLOBIN 14.3 g/dL (14.0-18.0); LYMPH # 1.9 (1.2-3.4); LYMPH % 10.5 % (22.0-35.0); MEAN CELL VOLUME 92.6 fl (80.0-105.0); MEAN CORPUSCULAR HEMOGLOBIN 32.1 pg (25.0-35.0); MEAN CORPUSCULAR HGB CONC 34.6 g/dl (31.0-37.0); MEAN PLATELET VOLUME 10.2 fl (7.0-11.0); MONO # 1.7 (0.1-0.6); MONO % 9.5 % (1.0-6.0); RBC 4.46 10^6/uL (3.5-6.1); RED CELL DISTRIBUTION WIDTH 13.1 % (11.5-14.5); WHITE BLOOD COUNT 17.7 10^3/uL (4.5-11.0)
[2018-10-13 20:36] LABS: VENOUS BLOOD GAS BASE EXCESS 1.9 mmol/L (0.0-2.0); VENOUS BLOOD GAS PO2 90 mm/Hg (30-55); VENOUS BLOOD PH 7.42 (7.32-7.43)
[2018-10-13 20:47] LABS: INR 1.25; PARTIAL THROMBOPLASTIN TIME 30.1 Seconds (26.9-38.3); PROTHROMBIN TIME 13.9 SECONDS (9.4-12.5)
[2018-10-13 20:50] LABS: ALB/GLOB RATIO 1.5 (1.1-1.8); ALT/SGPT 35 U/L (7-56); AST/SGOT 33 U/L (17-59); BLOOD UREA NITROGEN 17 mg/dL (7-21); CALCIUM 9.4 mg/dL (8.4-10.5); GFR NON-AFRICAN AMERICAN > 60; LIPASE 14 U/L (23-300)
[2018-10-13 21:37] LABS: PH,URINE 6.5 (4.7-8.0); URINE BILIRUBIN NEGATIVE (NEGATIVE); URINE BLOOD NEGATIVE (NEGATIVE); URINE GLUCOSE (UA) >=1000 mg/dL (NEGATIVE); URINE LEUKOCYTE ESTERASE NEGATIVE Leu/uL (NEGATIVE); URINE PROTEIN 30 mg/dL (<30 mg/dL); URINE UROBILINOGEN 0.2 E.U./dL (<1 E.U./dL)
[2018-10-13 21:38] LABS: URINE APPEARANCE CLEAR (CLEAR); URINE COLOR YELLOW (YELLOW)
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
[2018-10-13] MEDS ORDERED: Iohexol 350 MG/100 ML VIAL ONE (21:53)
[2018-10-13 22:35] LABS: URINE EPITHELIAL CELLS 0 - 2 /hpf (0-5); URINE RBC 0 - 2 /hpf (0-2); URINE WBC 0 - 2 /hpf (0-6)
[2018-10-13 22:36] LABS: URINE BACTERIA FEW /hpf
[2018-10-13] MEDS: Piperacillin/Tazobact 3.375 gm 100 ML IVPB SCH (23:42)
[2018-10-14] MEDS: Morphine 2 mg/ml ISec IVP PRN ×3 (02:04→15:54)
[2018-10-14] MEDS: Piperacillin/Tazobact 3.375 gm 100 ML IVPB SCH (05:36)
[2018-10-14 07:36] LABS: BASO # 0.05 K/mm3 (0.0-2.0); BASO % 0.3 % (0.0-3.0); EOS # 0.3 (0.0-0.7); EOS % 2.2 % (1.5-5.0); HEMOGLOBIN 12.7 g/dL (14.0-18.0); LYMPH # 3.3 (1.2-3.4); LYMPH % 21.7 % (22.0-35.0); MEAN CORPUSCULAR HEMOGLOBIN 30.6 pg (25.0-35.0); MEAN CORPUSCULAR HGB CONC 32.6 g/dl (31.0-37.0); MONO # 1.7 (0.1-0.6); RBC 4.15 10^6/uL (3.5-6.1); RED CELL DISTRIBUTION WIDTH 13.2 % (11.5-14.5); WHITE BLOOD COUNT 15.2 10^3/uL (4.5-11.0)
--- NOTE | 2018-10-14 08:25 | CP.PCM.PN ---
Subjective - Date & Time of Evaluation Date of Evaluation: 10/14/18 Time of Evaluation: 07:00 - Subjective Subjective: GENERAL SURGERY PROGRESS NOTE FOR DR. KEE Patient seen and examined at bedside. He states that he is still unable to have a BM since surgery and still having difficulty with urination, although he was able to void 200cc on his own in the urinal after straight cath last night. He denies nausea or vomiting. Pain improved some after straight cath but does still have pain to surgery site. Denies numbness or tingling. Objective - Vital Signs/Intake and Output Vital Signs (last 24 hours): Temp Pulse Resp BP Pulse Ox 98.8 F 91 H 18 118/68 92 L 10/14/18 06:00 10/14/18 06:00 10/14/18 06:00 10/14/18 06:00 10/14/18 06:00 - Medications Medications: Current Medications Sodium Chloride (Sodium Chloride 0.9%) 1,000 mls @ 75 mls/hr IV .[id number] PENDING SALE TO [facility] Last Admin: 10/13/18 19:59 Dose: 75 mls/hr Piperacillin Sod/Tazobactam Sod (Zosyn 3.375 In Ns 100ml) 100 mls @ 25 mls/hr IVPB Q8 PENDING S[facility] TO [facility]; Protocol Stop: 10/14/18 09:59 Last Admin: 10/14/18 05:36 Dose: 25 mls/hr Morphine Sulfate (Morphine) 2 mg IVP Q4 PRN PRN Reason: Pain, severe (8-10) Last Admin: 10/14/18 02:04 Dose: 2 mg Ondansetron HCl (Zofran Inj) 4 mg IVP Q4 PRN PRN Reason: Nausea/Vomiting Oxycodone/Acetaminophen (Percocet 5/325 Mg Tab) 1 tab PO Q4 PRN PRN Reason: Pain, moderate (4-7) Stop: 10/17/18 00:01 Polyethylene Glycol (Miralax) 17 gm PO DAILY [facility] Tamsulosin HCl (Flomax) 0.4 mg PO DAILY [facility] Last Admin: 10/13/18 22:35 Dose: 0.4 mg - Labs Labs: 10/14/18 07:10 10/13/18 20:15 PT 13.9 SECONDS (9.4-12.5) H 10/13/18 20:28 INR 1.25 10/13/18 20:28 APTT 30.1 Seconds (26.9-38.3) 10/13/18 20:28 - Constitutional Appears: Non-toxic, No Acute Distress - Head Exam Head Exam: ATRAUMATIC, NORMAL INSPECTION - Respiratory Exam Respiratory Exam: NORMAL BREATHING PATTERN. absent: Respiratory Distress - Cardiovascular Exam Cardiovascular Exam: +S1, +S2 - GI/Abdominal Exam GI & Abdominal Exam: Soft, Tenderness (tender to LLQ/incision site). absent: Distended, Firm, Guarding, Rigid, Rebound Additional comments: Dermabond in place over incision - Exam Exam: absent: NORMAL INSPECTION (penile & scrotal ecchymosis) - Neurological Exam Neurological Exam: Alert, Awake - Psychiatric Exam Psychiatric exam: Normal Affect, Normal Mood Assessment and Plan - Assessment and Plan (Free Text) Assessment: 68 year old male with PMHx of DM, CAD, anxiety, active smoker, COPD, HLD and HTN who presented to the ED with pain, penile & scrotal ecchymosis and urinary retention s/p left inguinal hernia repair yesterday. - Leukocytosis WBC 15.2 from 17.7 - UA negative - CT Abd/Pelvis = moderate constipation, post op changes to left inguinal region - Testicular US = unremarkable Plan: - Abx due to elevated WBC in pt with new foreign body (mesh). ID consulted - Penile & scrotal ecchymosis - hold Plavix for 2 more days, will likely resolve on its own after a couple weeks - Flomax - Scrotal support - Strict I&Os to due to difficulty voiding - Recommend urology consult - Discussed plan with Dr. Larisa Melgar PGY-4
[2018-10-14 08:48] LABS: BLOOD UREA NITROGEN 14 mg/dL (7-21); CALCIUM 8.8 mg/dL (8.4-10.5); GFR NON-AFRICAN AMERICAN > 60
[2018-10-14] MEDS ORDERED: Ipratropium 0.02% Inhal Soln (0.5 mg/2.5 ml) UD IH PRN (09:13)
--- NOTE | 2018-10-14 09:43 | RAD ---
Date of service: 10/13/2018 HISTORY: 17k wbc COMPARISON: Chest radiograph dated 08/28/2018. TECHNIQUE: 1 view obtained. FINDINGS: LUNGS: No active pulmonary disease. PLEURA: Hydration of both hemidiaphragms. No significant pleural effusion identified, no pneumothorax apparent. CARDIOVASCULAR: Aortic atherosclerotic calcifications. Cardiomediastinal silhouette within normal limits. OSSEOUS STRUCTURES: Unchanged. VISUALIZED UPPER ABDOMEN: Normal. OTHER FINDINGS: None. IMPRESSION: No active disease.
[2018-10-14] MEDS: Fluticasone Nasal 50 mcg/Spray NS SCH (09:52)
[2018-10-14] MEDS: Insulin Detemir 100 units/ml Vial (Levemir) SC SCH ×2 (09:53→17:45)
[2018-10-14] MEDS: POLYETHYLENE GLYCOL 3350 17 GM/Dose PACKET PO SCH (09:53)
[2018-10-14] MEDS: Sodium Chloride 0.9% 1,000 ML IV SCH (09:54)
[2018-10-14] MEDS: Multivitamin Therapeutic Tab PO SCH (09:55)
--- NOTE | 2018-10-14 10:05 | CT ---
Date of service: 10/13/2018 PROCEDURE: CT Abdomen and Pelvis with contrast HISTORY: LLQ pain s/p hernia repair yesterday COMPARISON: CT scan of the abdomen pelvis dated 10/04/2018. TECHNIQUE: Contrast dose: 93 mL Omnipaque 350 Radiation dose: Total exam DLP = 324.86 mGy-cm. This CT exam was performed using one or more of the following dose reduction techniques: Automated exposure control, adjustment of the mA and/or kV according to patient size, and/or use of iterative reconstruction technique. FINDINGS: LOWER THORAX: Unremarkable. LIVER: Unremarkable. No gross lesion or ductal dilatation. GALLBLADDER AND BILE DUCTS: Unremarkable. PANCREAS: Unremarkable. No gross lesion or ductal dilatation. SPLEEN: Unremarkable. ADRENALS: Unremarkable. No mass. KIDNEYS AND URETERS: Unremarkable. No hydronephrosis. No solid mass. VASCULATURE: Aortic atherosclerotic calcifications. Kissing aortoiliac stents. No aneurysm. BOWEL: Unremarkable. No obstruction. No gross mural thickening. APPENDIX: Normal appendix. PERITONEUM: Interval left herniorrhaphy with associated postsurgical changes. In the left lower quadrant, there is a 3.0 x 2.3 x 3.8 cm area that contains air, infiltrative changes and possibly a little bit of fluid. In the subcutaneous left pelvic tissues, there is a 2.0 x 6.8 cm collection of mostly air and a little bit of fluid. LYMPH NODES: Unremarkable. No enlarged lymph nodes. BLADDER: Unremarkable. REPRODUCTIVE: Unremarkable. BONES: No acute fracture. OTHER FINDINGS: None. IMPRESSION: Interval left herniorrhaphy with associated postsurgical changes. In the left lower quadrant, there is a 3.0 x 2.3 x 3.8 cm area that contains air, infiltrative changes and possibly a little bit of fluid. In the subcutaneous left pelvic tissues, there is a 2.0 x 6.8 cm collection of mostly air and a little bit of fluid. These findings were not reported by [facility].
[2018-10-14] MEDS: Levalbuterol 0.63 MG/3 ML Inhal Soln UD IH SCH ×3 (10:16→20:23)
[2018-10-14] MEDS: Insulin Reg-LOW-Coverage SC SCH ×3 (11:34→23:41)
[2018-10-14] MEDS: Piperacill/Tazo 4.5gm in NS 4.5 GM/100 ML BAG IVPB SCH ×3 (11:34→21:57)
[2018-10-14] MEDS ORDERED: Bisacodyl 5mg EC Tab PO PRN (15:20)
[2018-10-14] MEDS ORDERED: Magnesium Hydroxide Susp 30 ml UD PO PRN (15:22)
--- NOTE | 2018-10-14 17:45 | US ---
Date of service: 10/13/2018 HISTORY: rule out torsion TECHNIQUE: Realtime sonography through the scrotum with color and doppler flow. COMPARISON: None Available. FINDINGS: RIGHT TESTICLE: Measures 3.7 x 1.4 x 2.8 cm. Normal echotexture and flow. RIGHT EPIDIDYMIS: Epididymal head measures 0.6 x 0.8 x 1.0 cm. Grossly unremarkable appearance with normal flow. LEFT TESTICLE: Measures 3.8 x 2.0 x 3.2 cm. Normal echotexture and flow. LEFT EPIDIDYMIS: Epididymal head measures 0.7 x 1.1 x 1.0 cm. Grossly unremarkable appearance with normal flow. HYDROCELE: Trace left hydrocele. VARICOCELE: None. OTHER FINDINGS: None. IMPRESSION: No evidence of testicular torsion. Trace left hydrocele.
[2018-10-14] MEDS: Oxycodone/Acetaminophen 5/325 mg Tab PO PRN (17:55)
[2018-10-14] MEDS ORDERED: ALBUTEROL IH PRN (18:24)
[2018-10-14 19:37] LABS: URINE BILIRUBIN NEGATIVE (NEGATIVE); URINE BLOOD NEGATIVE (NEGATIVE); URINE GLUCOSE (UA) >=1000 mg/dL (NEGATIVE); URINE LEUKOCYTE ESTERASE NEGATIVE Leu/uL (NEGATIVE); URINE PROTEIN NEGATIVE mg/dL (<30 mg/dL); URINE UROBILINOGEN 0.2 E.U./dL (<1 E.U./dL)
[2018-10-14 19:38] LABS: URINE APPEARANCE CLEAR (CLEAR); URINE COLOR LIGHT YELLOW (YELLOW)
[2018-10-14] MEDS: QUEtiapine 300 mg XR Tab PO PRN (22:11)
--- NOTE | 2018-10-14 23:21 | CON ---
DATE OF CONSULTATION: 10/14/2018 LOCATION: The patient is in Room 565, Bed 2. CHIEF COMPLAINT: Left groin pain at the surgical site x1 day. HISTORY OF PRESENT ILLNESS: This is a 68-year-old male with diabetes mellitus, coronary artery disease, chronic obstructive lung disease, anxiety, hypertension, hyperlipidemia, who I saw yesterday and was discharged yesterday as outpatient, had surgery done a day before, elective surgery, had hernia repair with a mesh, now is re-admitted with pain at the left groin where the surgical site is. He did have urinary frequency, but has no nausea, vomiting, no abdominal pain, no diarrhea or constipation. PAST MEDICAL HISTORY: Significant for hypertension, diabetes, coronary artery disease, chronic obstructive lung disease, hyperlipidemia, anxiety. PAST SURGICAL HISTORY: Significant for the left inguinal repair many years ago and left inguinal mesh, the recent one was on 10/12/2018, mesh placement. The patient also has a history of left shoulder surgery in the past. SOCIAL HISTORY: The patient continues to be a smoker. MEDICATIONS AT HOME: Reviewed. ALLERGIES: HE HAS NO KNOWN ALLERGIES. REVIEW OF SYSTEMS: A 12-point review of systems is performed. PHYSICAL EXAMINATION: GENERAL: The patient is in bed in no acute distress, nontoxic, asking for pain medication. VITAL SIGNS: Temperature of 98, heart rate of 108 to 113, respiratory rate of 20, blood pressure is 140/60. HEENT: Unremarkable. NECK: Supple. LUNGS: Decreased breath sounds. HEART: Normal S1, S2. ABDOMEN: Soft, nontender. The surgical site is clean. There is no erythema. It is not warm to touch. There is no discharge. There is no evidence of infection at the surgical site. LABORATORY EXAMINATION: White count of 17,700, is down to 15,200, and coagulation is noted. The patient's hemoglobin is 12 and platelets of 367,000. Chemistries reveal a BUN of 14, creatinine of 0.8. Urinalysis is unremarkable. The patient had a CT scan of the abdomen and pelvis, the report is not available at this time. ASSESSMENT/PLAN: The patient is a 68-year-old male with 1. SIRS (systemic inflammatory response syndrome) with leukocytosis and tachycardia, status post left inguinal hernia repair with mesh, postop procedure day #2 with persistent pain at the surgical site and questionable urinary symptoms of urinary retention, although urinalysis is not significant. On admission, blood cultures are negative. 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 We will make further recommendations pending pancultures and imaging results and we will follow with you. Etiology of the pain is not clear. I will also order Dopplers of the lower extremities. The patient had a testicular ultrasound, results are not available.. The patient does have chemotic penis and scrotum, but on exam it is completely benign. No evidence of infection there. Josh Sheppard MD
[2018-10-15] MEDS: Oxycodone/Acetaminophen 5/325 mg Tab PO PRN ×2 (00:12→21:44)
[2018-10-15] MEDS: Piperacill/Tazo 4.5gm in NS 4.5 GM/100 ML BAG IVPB SCH ×3 (05:28→22:26)
[2018-10-15] MEDS: Sodium Chloride 0.9% 1,000 ML IV SCH ×2 (05:31→17:30)
[2018-10-15] MEDS: Levalbuterol 0.63 MG/3 ML Inhal Soln UD IH SCH ×3 (07:20→19:09)
[2018-10-15 07:28] LABS: BASO # 0.05 K/mm3 (0.0-2.0); BASO % 0.4 % (0.0-3.0); EOS # 0.4 (0.0-0.7); EOS % 3.6 % (1.5-5.0); HEMOGLOBIN 12.5 g/dL (14.0-18.0); LYMPH % 26.8 % (22.0-35.0); MEAN CELL VOLUME 93.7 fl (80.0-105.0); MEAN CORPUSCULAR HEMOGLOBIN 30.3 pg (25.0-35.0); MEAN CORPUSCULAR HGB CONC 32.4 g/dl (31.0-37.0); MEAN PLATELET VOLUME 9.9 fl (7.0-11.0); MONO # 1.3 (0.1-0.6); MONO % 11.4 % (1.0-6.0); RBC 4.12 10^6/uL (3.5-6.1); RED CELL DISTRIBUTION WIDTH 13.1 % (11.5-14.5); WHITE BLOOD COUNT 11.4 10^3/uL (4.5-11.0)
--- NOTE | 2018-10-15 08:00 | CP.PCM.PN ---
Subjective - Date & Time of Evaluation Date of Evaluation: 10/15/18 Time of Evaluation: 07:56 - Subjective Subjective: Surgery Progress Note for Dr. Peres 68M seen and evaluated at bedside this morning. No acute events overnight. No complaints this morning. Patient states pain has improved. Patient is voiding without difficulty. Patient had BM last night and is passing flatus. Patient is ambulating. Denies f/c, n/v/d, SOB, CP, or urinary symptoms. Objective - Vital Signs/Intake and Output Vital Signs (last 24 hours): Temp Pulse Resp BP Pulse Ox 98.1 F 87 18 121/60 94 L 10/15/18 06:00 10/15/18 06:00 10/15/18 06:00 10/15/18 06:00 10/15/18 06:00 Intake and Output: 10/15/18 10/15/18 06:59 18:59 Intake Total 360 Balance 360 - Medications Medications: Current Medications Aspirin (Aspirin Chewable) 81 mg PO DAILY [facility] Last Admin: 10/14/18 09:51 Dose: 81 mg Atorvastatin Calcium (Lipitor) 20 mg PO DIN [facility] Last Admin: 10/14/18 17:46 Dose: 20 mg Benzonatate (Tessalon Perles) 200 mg PO TID [facility] Last Admin: 10/14/18 17:46 Dose: 200 mg Bisacodyl (Dulcolax) 5 mg PO BID PRN PRN Reason: Constipation Last Admin: 10/14/18 15:49 Dose: 5 mg Clonazepam (Klonopin) 0.5 mg PO HS PRN; Protocol PRN Reason: Anxiety Last Admin: 10/14/18 21:56 Dose: 0.5 mg Docusate Sodium (Colace) 100 mg PO DAILY [facility] Last Admin: 10/14/18 09:52 Dose: 100 mg Fluticasone Propionate (Flonase) 1 actuation NS DAILY [facility] Last Admin: 10/14/18 09:52 Dose: 1 spray Glipizide (Glucotrol) 10 mg PO DAILY [facility] Last Admin: 10/14/18 09:52 Dose: 10 mg Home Med (Home Med) 1 unit IH QID PRN PRN Reason: asthma Sodium Chloride (Sodium Chloride 0.9%) 1,000 mls @ 75 mls/hr IV .[id number] [facility] Last Admin: 10/15/18 05:31 Dose: 75 mls/hr Piperacillin Sod/Tazobactam Sod (Zosyn 4.5 Gm In Ns 100ml) 4.5 gm in 100 mls @ 25 mls/hr IVPB Q8 [facility]; Protocol Stop: 10/23/18 10:07 Last Admin: 10/15/18 05:28 Dose: 25 mls/hr Insulin Detemir (Levemir) 10 unit SC BID [facility] Last Admin: 10/14/18 17:45 Dose: 10 units Insulin Human Regular (Humulin R Low) 0 units SC ACHS [facility]; Protocol Last Admin: 10/14/18 23:41 Dose: Not Given Ipratropium [place] (Atrovent) 0.5 mg IH [id number] PRN PRN Reason: Shortness of Breath Last Admin: 10/14/18 10:16 Dose: 0.5 mg Levalbuterol HCl (Xopenex) 0.63 mg IH QID [facility] Last Admin: 10/15/18 07:20 Dose: 0.63 mg Magnesium Hydroxide (Milk Of Magnesia) 30 ml PO DAILY PRN PRN Reason: Constipation Last Admin: 10/14/18 15:49 Dose: 30 ml Montelukast Sodium (Singulair) 10 mg PO HS [facility] Last Admin: 10/14/18 21:56 Dose: 10 mg Morphine Sulfate (Morphine) 2 mg IVP Q4 PRN PRN Reason: Pain, severe (8-10) Last Admin: 10/14/18 15:54 Dose: 2 mg Multivitamins (Thera Tab) 1 tab PO 1000 [facility] Last Admin: 10/14/18 09:55 Dose: 1 tab Ondansetron HCl (Zofran Inj) 4 mg IVP Q4 PRN PRN Reason: Nausea/Vomiting Oxycodone/Acetaminophen (Percocet 5/325 Mg Tab) 1 tab PO Q4 PRN PRN Reason: Pain, moderate (4-7) Stop: 10/17/18 00:01 Last Admin: 10/15/18 00:12 Dose: 1 tab Polyethylene Glycol (Miralax) 17 gm PO DAILY [facility] Last Admin: 10/14/18 09:53 Dose: 17 gm Quetiapine Fumarate (Seroquel Xr) 300 mg PO HS PRN; Protocol PRN Reason: Restlessness Last Admin: 10/14/18 22:11 Dose: 300 mg Sitagliptin Phosphate (Januvia) 100 mg PO DAILY [facility] Last Admin: 10/14/18 09:53 Dose: 100 mg Tamsulosin HCl (Flomax) 0.4 mg PO DAILY [facility] Last Admin: 10/14/18 09:52 Dose: 0.4 mg - Labs Labs: 10/14/18 07:10 10/14/18 07:30 PT 13.9 SECONDS (9.4-12.5) H 10/13/18 20:28 INR 1.25 10/13/18 20:28 APTT 30.1 Seconds (26.9-38.3) 10/13/18 20:28 - Constitutional Appears: Non-toxic, No Acute Distress - Head Exam Head Exam: ATRAUMATIC, NORMAL INSPECTION, NORMOCEPHALIC - Eye Exam Eye Exam: EOMI Pupil Exam: PERRL - Respiratory Exam Respiratory Exam: NORMAL BREATHING PATTERN. absent: Wheezes, Respiratory Distress - Cardiovascular Exam Cardiovascular Exam: +S1, +S2 - GI/Abdominal Exam GI & Abdominal Exam: Soft, Normal Bowel Sounds. absent: Tenderness - Exam Exam: Scrotal Swelling Additional comments: left inguinal surgical site c/d/i suprapubic, scrotal and penile ecchymosis mildly tender to palpation - Neurological Exam Neurological Exam: Alert, Awake, Oriented x3 - Psychiatric Exam Psychiatric exam: Normal Affect, Normal Mood - Skin Skin Exam: Dry, Intact, Warm Assessment and Plan - Assessment and Plan (Free Text) Assessment: 68 year old male with PMHx of DM, CAD, anxiety, active smoker, COPD, HLD and HTN who presented to the ED with pain, penile & scrotal ecchymosis and urinary retention s/p left inguinal hernia repair yesterday. - CT Abd/Pelvis = moderate constipation, post op changes to left inguinal region - Testicular US = unremarkable Plan: Leukocytosis, likely 2/2 mesh placement Abx per ID Continue to hold Plavix until 10/16/18 Continue to monitor ecchymosis of penis and scrotum - likely to resolve over time Scrotal support Warm compresses Recommend f/u urology outpatient Augmentin 5 days following discharge Cleared for discharge from a surgical standpoint D/w Dr. Larisa Ryan PGY1
[2018-10-15] MEDS: Insulin Reg-LOW-Coverage SC SCH ×3 (08:18→17:27)
--- NOTE | 2018-10-15 09:39 | US ---
HISTORY: Leg pain and swelling. Evaluate for DVT PHYSICIAN(S): Alber Sandra MD. TECHNIQUE: Duplex sonography and color-flow Doppler with graded compression were used to evaluate the deep venous systems of both lower extremities. FINDINGS: The visualized deep venous systems of both lower extremities are sonographically normal and compressible. Normal wave forms and augmentation are seen. There is no sonographic evidence for deep venous thrombosis in the visualized segments of both lower extremities. IMPRESSION: No sonographic evidence for deep venous thrombosis in the visualized segments of both lower extremities.
[2018-10-15] MEDS: Morphine 2 mg/ml ISec IVP PRN (09:41)
[2018-10-15] MEDS: Fluticasone Nasal 50 mcg/Spray NS SCH (09:42)
[2018-10-15] MEDS: Insulin Detemir 100 units/ml Vial (Levemir) SC SCH ×2 (09:43→17:28)
[2018-10-15] MEDS: POLYETHYLENE GLYCOL 3350 17 GM/Dose PACKET PO SCH (09:43)
[2018-10-15] MEDS: Multivitamin Therapeutic Tab PO SCH (09:43)
--- NOTE | 2018-10-15 14:22 | CP.PCM.APN ---
Subjective - Date & Time of Evaluation Date of Evaluation: 10/15/18 Time of Evaluation: 10:00 - Subjective Subjective: Pt seen and examined at bedside. In no acute distress. C/O pain at surgical site. Objective - Vital Signs/Intake and Output Vital Signs (last 24 hours): Temp Pulse Resp BP Pulse Ox 98.1 F 87 18 121/60 94 L 10/15/18 06:00 10/15/18 06:00 10/15/18 06:00 10/15/18 06:00 10/15/18 06:00 Intake and Output: 10/15/18 10/15/18 06:59 18:59 Intake Total 360 Balance 360 - Medications Medications: Current Medications Aspirin (Aspirin Chewable) 81 mg PO DAILY [facility] Last Admin: 10/15/18 09:42 Dose: 81 mg Atorvastatin Calcium (Lipitor) 20 mg PO DIN [facility] Last Admin: 10/14/18 17:46 Dose: 20 mg Benzonatate (Tessalon Perles) 200 mg PO TID [facility] Last Admin: 10/15/18 14:08 Dose: 200 mg Bisacodyl (Dulcolax) 5 mg PO BID PRN PRN Reason: Constipation Last Admin: 10/14/18 15:49 Dose: 5 mg Clonazepam (Klonopin) 0.5 mg PO HS PRN; Protocol PRN Reason: Anxiety Last Admin: 10/14/18 21:56 Dose: 0.5 mg Docusate Sodium (Colace) 100 mg PO DAILY [facility] Last Admin: 10/15/18 09:42 Dose: 100 mg Fluticasone Propionate (Flonase) 1 actuation NS DAILY [facility] Last Admin: 10/15/18 09:42 Dose: 1 spray Glipizide (Glucotrol) 10 mg PO DAILY [facility] Last Admin: 10/15/18 09:42 Dose: 10 mg Home Med (Home Med) 1 unit IH QID PRN PRN Reason: asthma Sodium Chloride (Sodium Chloride 0.9%) 1,000 mls @ 75 mls/hr IV .[id number] [facility] Last Admin: 10/15/18 05:31 Dose: 75 mls/hr Piperacillin Sod/Tazobactam Sod (Zosyn 4.5 Gm In Ns 100ml) 4.5 gm in 100 mls @ 25 mls/hr IVPB Q8 [facility]; Protocol Stop: 10/23/18 10:07 Last Admin: 10/15/18 05:28 Dose: 25 mls/hr Insulin Detemir (Levemir) 10 unit SC BID [facility] Last Admin: 10/15/18 09:43 Dose: 10 units Insulin Human Regular (Humulin R Low) 0 units SC ACHS [facility]; Protocol Last Admin: 10/15/18 11:52 Dose: 2 unit Ipratropium [place] (Atrovent) 0.5 mg IH [id number] PRN PRN Reason: Shortness of Breath Last Admin: 10/14/18 10:16 Dose: 0.5 mg Levalbuterol HCl (Xopenex) 0.63 mg IH QID [facility] Last Admin: 10/15/18 13:08 Dose: 0.63 mg Magnesium Hydroxide (Milk Of Magnesia) 30 ml PO DAILY PRN PRN Reason: Constipation Last Admin: 10/14/18 15:49 Dose: 30 ml Montelukast Sodium (Singulair) 10 mg PO HS [facility] Last Admin: 10/14/18 21:56 Dose: 10 mg Morphine Sulfate (Morphine) 2 mg IVP Q4 PRN PRN Reason: Pain, severe (8-10) Last Admin: 10/15/18 09:41 Dose: 2 mg Multivitamins (Thera Tab) 1 tab PO 1000 [facility] Last Admin: 10/15/18 09:43 Dose: 1 tab Ondansetron HCl (Zofran Inj) 4 mg IVP Q4 PRN PRN Reason: Nausea/Vomiting Oxycodone/Acetaminophen (Percocet 5/325 Mg Tab) 1 tab PO Q4 PRN PRN Reason: Pain, moderate (4-7) Stop: 10/17/18 00:01 Last Admin: 10/15/18 00:12 Dose: 1 tab Polyethylene Glycol (Miralax) 17 gm PO DAILY [facility] Last Admin: 10/15/18 09:43 Dose: 17 gm Quetiapine Fumarate (Seroquel Xr) 300 mg PO HS PRN; Protocol PRN Reason: Restlessness Last Admin: 10/14/18 22:11 Dose: 300 mg Sitagliptin Phosphate (Januvia) 100 mg PO DAILY [facility] Last Admin: 10/15/18 09:43 Dose: 100 mg Tamsulosin HCl (Flomax) 0.4 mg PO DAILY [facility] Last Admin: 10/15/18 09:42 Dose: 0.4 mg - Labs Labs: 10/15/18 06:20 10/14/18 07:30 PT 13.9 SECONDS (9.4-12.5) H 10/13/18 20:28 INR 1.25 10/13/18 20:28 APTT 30.1 Seconds (26.9-38.3) 10/13/18 20:28 - Constitutional Appears: No Acute Distress - Head Exam Head Exam: ATRAUMATIC - Cardiovascular Exam Cardiovascular Exam: REGULAR RHYTHM, +S1, +S2 - Exam Additional comments: +ecchymosis to penis and scrotum - Neurological Exam Neurological Exam: Alert, Awake, Oriented x3 Assessment and Plan - Assessment and Plan (Free Text) Assessment: Pt is a 68 y.o. male CAD, COPD, HTN, DM2, recent cath for surgical clearance and s/p L inguinal hernia repair w/ Dr. Drake 10/12 who presented in ED w/ c/o abdominal pain, constipation and decreased urine output. Pt stated last BM was yesterday and is urinating regularly. Still c/o pain at surgical site. Impressions Testicular Ultrasound 10/13/18 21:38 IMPRESSION: No evidence of testicular torsion. Trace left hydrocele. Extremity Ultrasound 10/14/18 10:06 IMPRESSION: No sonographic evidence for deep venous thrombosis in the visualized segments of both lower extremities. Plan: Pain management Zosyn per ID Surgical and ID recs noted Pending bladder scan result Meds per MAR Will continue to follow
--- NOTE | 2018-10-15 14:54 | US ---
Date of service: 10/15/2018 PROCEDURE: Ultrasound urinary bladder HISTORY: increase urinary frequency COMPARISON: Not available TECHNIQUE: Transabdominal FINDINGS: The distended urinary bladder measures 194.8 mL. The wall is uniformly thickened. There is no intraluminal mass identified. Neither the right nor left ureteral jet is identified. The postvoid residual in the urinary bladder is 99.3 mL. The prostate measures 34 cc volume. IMPRESSION: 99.3 mL postvoid residual in the urinary bladder. Diffusely thickened bladder wall, nonspecific.
--- NOTE | 2018-10-15 19:10 | HP ---
DATE OF EXAM: 10/14/2018 CHIEF COMPLAINT: Erasmo Noel is a 68-year-old male who came in back to the hospital after he was discharged from Surgery, came in on 10/14/2018 with main complaint of left-sided inguinal hernia surgery site pain and constipation, could not move his bowels, red blood in the rectum and could not get his medicine after discharge. HISTORY OF PRESENT ILLNESS: A 68-year-old male had left-sided herniorrhaphy by Dr. Adrian Peres, came into the hospital because of persistent pain, could not get pain medicine, could not get his antibiotics, and constipated, red blood in the rectum, was straining, he felt miserable, came back to the hospital on Monday for treatment and evaluation. PAST MEDICAL HISTORY: As I mentioned, he has history of left recent hernia surgery, COPD, left-sided weakness, CVA, hypertension, diabetes type 2 using insulin, hypercholesteremia, and also chronic anxiety. HOME MEDICATIONS: He takes aspirin, nebulizer treatment, Flomax, Flonase, Glucotrol XL 10 mg, Januvia 100 mg, Klonopin 0.5 mg at bedtime, Levemir 10 units b.i.d., Lipitor 20 mg, milk of magnesia p.r.n., Percocet one every 6 hours of 5/325 mg, Seroquel 300 mg at bedtime, Singulair, he takes also Tylenol for any muscle pain in addition to Percocet. ALLERGIES: NO KNOWN ALLERGY. REVIEW OF SYSTEMS: As in present illness. PHYSICAL EXAMINATION VITAL SIGNS: On 10/14/2018; temperature is 98, heart rate is 95, blood pressure 131/75, respirations 17, and sat 98%. HEAD AND NECK: Normal. No JVD. No thyromegaly. CHEST: Clear bilaterally. CARDIAC: First sound and second sound normal. ABDOMEN: Soft. There is tenderness in left inguinal area with gauze covering it. EXTREMITIES: Lower extremities, no edema. Negative Real. LABORATORY STUDIES: On admission white count went up to 17.7, hemoglobin 14.3, hematocrit 41.3, platelets 301. Chemistry; sodium 135, potassium is 3.8, chloride 102, bicarb 27, BUN 14, creatinine 0.8, blood sugar of 240, calcium 8.8. IMPRESSION AND PLAN 1. The patient has left inguinal pain, constipation, red blood per rectum, and with persistent leukocytosis. We will admit the patient for observation. We will give him IV antibiotics. Dr. Sheppard to see him. Urine culture sent. Blood culture sent. We will follow up on that, repeat CBC and resume his medication. We will give him Percocet. We will give him milk of magnesia, MiraLax if needed. We will give Dulcolax tablet b.i.d. We will see how he will do with that and resume all other medications. 2. He has chronic obstructive pulmonary disease and chronic anxiety. We will continue Klonopin, Seroquel and nebulizer treatment and the rest of his medications that he takes at home. Continue current therapy. Followup clinically. Aleks Pizano MD
[2018-10-15] MEDS: QUEtiapine 300 mg XR Tab PO PRN (22:26)
--- NOTE | 2018-10-16 00:06 | PN ---
DATE: 10/15/2018 SUBJECTIVE: The patient is in bed, in no acute distress, nontoxic. PHYSICAL EXAMINATION: VITAL SIGNS: Temperature is 98, blood pressure is 120/60, respiratory rate of 18. HEENT: Unremarkable. NECK: Supple. LUNGS: Have decreased breath sounds. HEART: Normal S1 and S2. ABDOMEN: Soft. LABORATORY EXAMINATION: Reveals a white count is 11,400, hemoglobin of 12. Chemistries reveal the patient's creatinine is 0.8. Urinalysis is noted. Microbiology reveals blood cultures are negative and urine cultures are negative. Review of orders reveals the patient to be on Zosyn. The patient had a bladder ultrasound, reveals a thickened bladder wall, nonspecific. ASSESSMENT AND PLAN: This is a 68-year-old male with diabetes mellitus, coronary artery disease, chronic obstructive lung disease, anxiety, hypertension, hyperlipidemia and now is returned the patient with SIRS (systemic inflammatory response syndrome), leukocytosis, tachycardia, status post left inguinal hernia repair with a mesh, postprocedure day #3 with persistent pain at the surgical site, questionable urinary symptoms, urinary retention and currently on Zosyn. The patient's CAT scan is reviewed, appears to be improving but etiology of region of pain is not entirely clear. Thus far, urine and blood cultures are negative. We will check on tomorrow white blood cell count. Josh Sheppard MD
[2018-10-16] MEDS: Piperacill/Tazo 4.5gm in NS 4.5 GM/100 ML BAG IVPB SCH (06:06)
[2018-10-16] MEDS: Levalbuterol 0.63 MG/3 ML Inhal Soln UD IH SCH ×3 (07:18→15:18)
[2018-10-16] MEDS: Insulin Reg-LOW-Coverage SC SCH ×2 (08:28→12:24)
[2018-10-16 10:03] LABS: HEMOGLOBIN 13.3 g/dL (14.0-18.0); MEAN CELL VOLUME 92.4 fl (80.0-105.0); MEAN CORPUSCULAR HEMOGLOBIN 30.6 pg (25.0-35.0); MEAN CORPUSCULAR HGB CONC 33.2 g/dl (31.0-37.0); MEAN PLATELET VOLUME 9.8 fl (7.0-11.0); RBC 4.34 10^6/uL (3.5-6.1); RED CELL DISTRIBUTION WIDTH 12.8 % (11.5-14.5); WHITE BLOOD COUNT 11.2 10^3/uL (4.5-11.0)
[2018-10-16] MEDS: Multivitamin Therapeutic Tab PO SCH (10:29)
[2018-10-16] MEDS: Oxycodone/Acetaminophen 5/325 mg Tab PO PRN (10:29)
[2018-10-16] MEDS: Insulin Detemir 100 units/ml Vial (Levemir) SC SCH (10:30)
[2018-10-16] MEDS: POLYETHYLENE GLYCOL 3350 17 GM/Dose PACKET PO SCH (10:30)
[2018-10-16] MEDS: Fluticasone Nasal 50 mcg/Spray NS SCH (10:30)
--- NOTE | 2018-10-16 10:45 | CP.PCM.PCO ---
Additional Comments - Additional Comments Additional Comments: Per surgery, pt cleared for dc from their standpoint. Needs to f/u w/ Dr. Epstein in 2 weeks after discharge.
[2018-10-16] MEDS: Morphine 2 mg/ml ISec IVP PRN (10:47)
--- NOTE | 2018-10-16 11:04 | CP.PCM.PN ---
Subjective - Date & Time of Evaluation Date of Evaluation: 10/16/18 Time of Evaluation: 11:00 - Subjective Subjective: Surgery Progress Note for Dr. Peres 68M seen and evaluated at bedside this morning. No acute events overnight. Pt complaining of tenderness around surgical site. Patient had bowel movement last night. No difficulty with voiding. Patient refusing scrotal support. Denies f/c, n/v/d, SOB, CP, or urinary symptoms. Objective - Vital Signs/Intake and Output Vital Signs (last 24 hours): Temp Pulse Resp BP Pulse Ox 98.1 F 94 H 20 110/68 96 10/16/18 06:00 10/16/18 06:00 10/16/18 06:00 10/16/18 06:00 10/16/18 06:00 Intake and Output: 10/16/18 10/16/18 06:59 18:59 Intake Total 960 Output Total 1350 400 Balance -390 -400 - Medications Medications: Current Medications Aspirin (Aspirin Chewable) 81 mg PO DAILY [facility] Last Admin: 10/16/18 10:51 Dose: Not Given Atorvastatin Calcium (Lipitor) 20 mg PO DIN [facility] Last Admin: 10/15/18 17:28 Dose: 20 mg Benzonatate (Tessalon Perles) 200 mg PO TID [facility] Last Admin: 10/16/18 10:29 Dose: 200 mg Bisacodyl (Dulcolax) 5 mg PO BID PRN PRN Reason: Constipation Last Admin: 10/14/18 15:49 Dose: 5 mg Clonazepam (Klonopin) 0.5 mg PO HS PRN; Protocol PRN Reason: Anxiety Last Admin: 10/15/18 22:26 Dose: 0.5 mg Clopidogrel Bisulfate (Plavix) 75 mg PO DAILY [facility] Last Admin: 10/16/18 10:51 Dose: Not Given Docusate Sodium (Colace) 100 mg PO DAILY [facility] Last Admin: 10/16/18 10:29 Dose: 100 mg Fluticasone Propionate (Flonase) 1 actuation NS DAILY [facility] Last Admin: 10/16/18 10:30 Dose: 1 spray Glipizide (Glucotrol) 10 mg PO DAILY [facility] Last Admin: 10/16/18 10:29 Dose: 10 mg Home Med (Home Med) 1 unit IH QID PRN PRN Reason: asthma Sodium Chloride (Sodium Chloride 0.9%) 1,000 mls @ 75 mls/hr IV .[id number] [facility] Last Admin: 10/15/18 17:30 Dose: 75 mls/hr Piperacillin Sod/Tazobactam Sod (Zosyn 4.5 Gm In Ns 100ml) 4.5 gm in 100 mls @ 25 mls/hr IVPB Q8 [facility]; Protocol Stop: 10/23/18 10:07 Last Admin: 10/16/18 06:06 Dose: 25 mls/hr Insulin Detemir (Levemir) 10 unit SC BID [facility] Last Admin: 10/16/18 10:30 Dose: 10 units Insulin Human Regular (Humulin R Low) 0 units SC ACHS [facility]; Protocol Last Admin: 10/16/18 08:28 Dose: 1 unit Ipratropium Farrell (Atrovent) 0.5 mg IH O2ESRWH PRN PRN Reason: Shortness of Breath Last Admin: 10/14/18 10:16 Dose: 0.5 mg Levalbuterol HCl (Xopenex) 0.63 mg IH QIDRESP [facility] Last Admin: 10/16/18 10:58 Dose: 0.63 mg Magnesium Hydroxide (Milk Of Magnesia) 30 ml PO DAILY PRN PRN Reason: Constipation Last Admin: 10/14/18 15:49 Dose: 30 ml Montelukast Sodium (Singulair) 10 mg PO HS [facility] Last Admin: 10/15/18 22:26 Dose: 10 mg Morphine Sulfate (Morphine) 2 mg IVP Q4 PRN PRN Reason: Pain, severe (8-10) Last Admin: 10/16/18 10:47 Dose: 2 mg Multivitamins (Thera Tab) 1 tab PO 1000 [facility] Last Admin: 10/16/18 10:29 Dose: 1 tab Ondansetron HCl (Zofran Inj) 4 mg IVP Q4 PRN PRN Reason: Nausea/Vomiting Oxycodone/Acetaminophen (Percocet 5/325 Mg Tab) 1 tab PO Q4 PRN PRN Reason: Pain, moderate (4-7) Stop: 10/17/18 00:01 Last Admin: 10/15/18 21:44 Dose: 1 tab Polyethylene Glycol (Miralax) 17 gm PO DAILY [facility] Last Admin: 10/16/18 10:30 Dose: 17 gm Quetiapine Fumarate (Seroquel Xr) 300 mg PO HS PRN; Protocol PRN Reason: Restlessness Last Admin: 10/15/18 22:26 Dose: 300 mg Sitagliptin Phosphate (Januvia) 100 mg PO DAILY [facility] Last Admin: 10/16/18 10:28 Dose: 100 mg Tamsulosin HCl (Flomax) 0.4 mg PO DAILY [facility] Last Admin: 10/16/18 10:29 Dose: 0.4 mg - Labs Labs: 10/16/18 09:45 10/14/18 07:30 PT 13.9 SECONDS (9.4-12.5) H 10/13/18 20:28 INR 1.25 10/13/18 20:28 APTT 30.1 Seconds (26.9-38.3) 10/13/18 20:28 - Constitutional Appears: Well, Non-toxic, No Acute Distress - Head Exam Head Exam: ATRAUMATIC, NORMAL INSPECTION, NORMOCEPHALIC - Eye Exam Eye Exam: EOMI Pupil Exam: PERRL - ENT Exam ENT Exam: Mucous Membranes Moist - Respiratory Exam Respiratory Exam: NORMAL BREATHING PATTERN. absent: Wheezes, Respiratory Distress - Cardiovascular Exam Cardiovascular Exam: REGULAR RHYTHM - GI/Abdominal Exam GI & Abdominal Exam: Soft, Normal Bowel Sounds. absent: Tenderness - Exam Exam: Scrotal Swelling Additional comments: scrotal and penile hematoma - improving suprapubic hematoma and swelling noted - Neurological Exam Neurological Exam: Alert, Awake, Oriented x3 - Psychiatric Exam Psychiatric exam: Normal Affect, Normal Mood - Skin Skin Exam: Dry, Intact, Normal Color, Warm Assessment and Plan - Assessment and Plan (Free Text) Assessment: 68M s/p open left inguinal hernia repair with mesh POD4 Plan: Leukocytosis, likely 2/2 mesh placement - improving Abx per ID Resume plavix today Continue to monitor ecchymosis of penis and scrotum - likely to resolve over time Scrotal support - patient refusing Warm compresses over suprapubic and scrotal region for symptomatic relief Recommend f/u urology outpatient Augmentin 5 days following discharge Cleared for discharge from a surgical standpoint D/w Dr. Larisa Ryan PGY1
[2018-10-16 13:38] VITALS: BP 160/80; PULSE 88; RESP 19; TEMP 97.4; O2SAT 98
--- NOTE | 2018-10-16 15:53 | PN ---
DATE: 10/15/2018 SUBJECTIVE: The patient is comfortable, in no distress. He did have a bowel movement. No fever. He is better. PHYSICAL EXAMINATION: VITAL SIGNS: Temperature 98.2, heart rate 82, blood pressure 143/68, and saturation 96% on room air. HEENT: Head and neck normal. No JVD. No thyromegaly. CHEST: Clear bilateral. CARDIAC: First sound and second sound normal. No murmur, rub or gallop. ABDOMEN: Soft. There is mild tenderness in the left inguinal and left lower quadrant surgery sites. GENITALIA: There is some ecchymotic changes in the external genitalia. EXTREMITIES: Lower extremities no edema. NEUROLOGIC: Left side weakness. LABORATORY DATA: White count 11.4, hemoglobin 12.5, hematocrit 38.6, platelets 263. Chemistries noted for sodium 135, potassium 3.8, chloride 102, bicarb 27, BUN 14, creatinine 0.8. Also, blood sugar running in the 200 to 109. IMPRESSION AND PLAN: 1. Leukocytosis, etiology unclear. Blood culture is negative. Urine culture is negative. We will continue current antibiotic as per Infectious Disease consult and we will follow up clinically. 2. Left inguinal hernia, surgery repair, seems doing well. Continue current therapy. 3. Abnormal CT findings with some air in the left upper quadrant area. Surgical consult will see the patient as to do with the surgery, the surgical team will evaluate the abnormal CT. Continue Zosyn for now. 4. Chronic obstructive pulmonary disease. Continue nebulizer treatment. 5. Diabetes,hypercholesterolemia, chronic constipation. Continue Flomax for prostate enlargement. Flonase, DuoNeb, Pulmicort and Brovana. We will continue Lipitor 20 mg at bedtime. 6. History of chronic anxiety and history of psychologic disorder. Continue Seroquel 300 mg at bedtime and Klonopin. For his chronic back pain, we will continue Percocet as ordered one every 4 hours p.r.n. Continue current therapy. We will discuss further with Infectious Disease and Surgical team about the abnormality in the CT. Currently, the patient seems improving, white count going down. We will discuss further. Aleks Pizano MD
--- NOTE | 2018-10-16 17:33 | PN ---
DATE: 10/16/2018 SUBJECTIVE: The patient is in bed, in no acute distress, nontoxic, and doing well. PHYSICAL EXAMINATION: VITAL SIGNS: Temperature is 98, blood pressure is 110/60, respiratory rate of 18, and heart rate of 94. HEENT: Unremarkable. NECK: Supple. Lungs: Decreased breath sounds. HEART: Normal S1, S2. ABDOMEN: Soft, nontender. No organomegaly. No rebound or guarding. No masses. LABORATORY DATA: Reveals a white count is down to 11,200. Chemistries are noted and urinalysis is noted. Hematology is reviewed. Microbiology is reviewed. ASSESSMENT AND PLAN: This 68-year-old male with diabetes mellitus, coronary artery disease, chronic obstructive lung disease, anxiety, hypertension, and hyperlipidemia admitted with SIRS (systemic inflammatory response syndrome) and is status post left inguinal hernia repair with a mesh and postprocedure day #4 the patient's pain is much improved. He is asking to go home. He is switched to Augmentin 875 p.o. b.i.d. and doxycycline 100 mg p.o. b.i.d. both for 5 days. Josh Sheppard MD
[2018-10-16] MEDS ORDERED: Amoxicillin-Clav 875-125 mg Tab PO SCH (22:00)
--- NOTE | 2018-10-18 05:33 | DS ---
HOSPITAL COURSE: Patient was admitted with constipation, severe left sided pain, and also persistent leukocytosis going up. Patient was seen in the emergency room, was thought to be admitted due to the above complaints. He was seen by ID consult Dr. Sheppard who started him on Zosyn. Seen by GI consult, Dr. Cai. Surgical team also seeing the patient, for Dr. Peres. Patient was seen. His white count seems going down, stable. Patient feels better and was discharged home on 10/16/2018. No other complaints. No nausea. No vomiting. PHYSICAL EXAMINATION: VITAL SIGNS: Temperature 97.4, heart rate 88, blood pressure 110/68, respirations 20, saturation 96% on room air. HEAD AND NECK: Normal. No JVD. No thyromegaly. CHEST: Clear bilaterally. CARDIAC: First sound and second sound normal. No murmur, rubs, or gallops. ABDOMEN: Soft and nontender. EXTREMITIES: No edema. NEUROLOGIC: Normal. LABORATORY DATA: His laboratory studies shows white count 11.2, hemoglobin 13.3, hematocrit 40.1, and platelets 296. Chemistry shows blood sugar running in the 200 range. Patient seems eating whatever he wants. His last chemistry; sodium 135, potassium 3.8, chloride 102, bicarb 27, BUN 14, and creatinine 0.9. Liver function test is normal. Patient also had a CT abdomen and pelvis which showed some air in the left upper quadrant, some fluid subcutaneous tissue, left inguinal area. Patient has extremity ultrasound which was negative. Chest x-rays shows no pneumonia. Testicular ultrasound shows hydrocele, small. He also had bladder ultrasound which shows post void residual 99.2 which is good. He also had blood cultures which was negative. Urine culture was negative. Patient's symptoms improved and he will be discharged home. He is on p.o. Augmentin for 1 week. DISCHARGE DIAGNOSES: 1. Abdominal pain. 2. Dysuria. 3. Frequent urination probably prostate enlargement may be. 4. Status post left inguinal hernia repair. 5. Chronic obstructive pulmonary disease. 6. Chronic anxiety. 7. History of psychosis. 8. Insulin-dependent diabetes. DISCHARGE PLAN: Patient is advised to take Levemir 10 units b.i.d. and it can go up to 2 units each time, each day if his sugar is persistently above 200. He will continue insulin and continue glipizide 10 mg p.o. daily, Flonase, Augmentin 875 mg p.o. b.i.d. for 10 days, aspirin 81 mg, Plavix 75 mg, Lipitor 20 mg, Tessalon Perles, Dulcolax, milk of magnesia p.r.n., Januvia 100 mg p.o. daily, Flomax 0.4 mg once a day, Klonopin 0.5 mg at bedtime, Seroquel 300 mg at bedtime, and Percocet p.r.n. Follow up in a week in the office. Aleks Pizano MD [facility] # [id number]
== END 2018-10-16 15:51 | disposition home or self-care (01) ==
LOC: ED 19:08 → ERH 23:50 → 5RNO 10-14 01:53
PROVIDERS: ADMIT Internal Medicine; ATTEND Internal Medicine
DX: K59.09 Other constipation (principal); R65.10 Systemic inflammatory response syndrome (SIRS) of non-infectious origin without acute organ dysfunction; R33.8 Other retention of urine; J44.9 Chronic obstructive pulmonary disease, unspecified; I25.10 Atherosclerotic heart disease of native coronary artery without angina pectoris; I10 Essential (primary) hypertension; F17.210 Nicotine dependence, cigarettes, uncomplicated; E11.9 Type 2 diabetes mellitus without complications; E78.5 Hyperlipidemia, unspecified; E78.00 Pure hypercholesterolemia, unspecified; F41.9 Anxiety disorder, unspecified; G89.29 Other chronic pain; H91.92 Unspecified hearing loss, left ear; Z86.73 Personal history of transient ischemic attack (TIA), and cerebral infarction without residual deficits; K62.5 Hemorrhage of anus and rectum; Z79.02 Long term (current) use of antithrombotics/antiplatelets; Z79.4 Long term (current) use of insulin; Z79.82 Long term (current) use of aspirin
CPT/HCPCS: 36415; 71045; 74177; 76857; 80048; 80053; 81001; 81003; 82803; 82948; 83690; 85025; 85027; 85610; 85730; 86850; 86900; 87040; 87070; 87086; 93970; 93975; 94640; 94760; 96365; 96366; 96375; 96376; 99285; G0378; J2270; J2543; J7030; Q9967